=== PATIENT | male | born 1985 | race Caucasian/White ===

== ENCOUNTER 2018-06-19 07:48 | Emergency (ER) | payer MEDICAID, OTHER ==
[~2018-06-19] VITALS: Ht 177.8 cm; Wt 99.8 kg
--- OUTSIDE RECORDS SUMMARY | 2018-06-19 07:53 | XMS REPORT ---
Author Author AMPARO FERREIRA Organization Unknown Address [address] [place] [address] Care Team Providers [employer] Architect Name Role Phone HANNA AMPARO Unavailable BUFFY TREJO Unavailable JANKI STARR Unavailable BLANCHE GREGORY Unavailable Problems Problem SNOMED Onset Date Resolved Date Status N/A N/A N/A N/A N/A Allergies, Adverse Reactions NA Care Plan Goal Instructions To decrease incidence of depression, suicidal feelings/thoughts, mood instability and emotional lability so that I can feel normal To finish a couple of songs about my depression and my life problems to help me release a lot of tensions. Use recovery tools and therapeutic interventions, including community resources to assist client with his [place] goal. To decrease incidence of depression, suicidal feelings/thoughts, mood instability and emotional lability so that I can feel normal To finish a couple of songs about my depression and my life problems to help me release a lot of tensions. Use recovery tools and therapeutic interventions, including community resources to assist client with his [place] goal. I want to get job to have more money so that I can save to buy a car Look for employment opportunities using [employer] library, newspapers, employment papers and utilizing the [facility] [employer]. Refer client to a vocational counselor for assistance. Meet with assigned vocational counselor for employment search and for job support. Use recovery tools and therapeutic interventions, including community resources to assist client with getting and keeping a job. The following services (vocational services, Targeted Case Management, Strength Based Case Management and CPST employmnt support) will be used 1 to 2 times weekly to assist client with his employment goal. Improve and maintain functioning through medical psychiatric services. Initial Psychiatric Evaluation, Ongoing medication monitoring and management, Case Conference with multidisciplinary members of the [facility] team as indicated, and/or Collaboration and coordination with outside medical providers as indicated by providing the following services: 30915 interactive complexity 27710 psychiatric diagnostic eval w/ meds 93230 30 min psychotherapy add-on 96919 45 [place] [address] 60 min psychotherapy add-on 94857 med injection 62700 New Patient E&M (level 1) 66344 New Patient E&M (level 2) 06446 New Patient E&M (level 3) 47520 New patient E&M (level 4) 38789 New Patient E&M (level 5) 94140 Established Patient E&M (level 1) 17718 Established Patient E&M (level 2) 44110 Established Patient E&M (level 3) 62402 Established Patient E& amp;M (level 4) 50182 Established Patient E&M (level 5) 9935x prolonged service code 21483 case conference w/o clt & fam w/ [place] [address] case conference w/o clt w / MD To decrease incidence of depression, suicidal feelings/thoughts, mood instability and emotional lability so that I can feel normal To finish a couple of songs about my depression and my life problems to help me release a lot of tensions. Use recovery tools and therapeutic interventions, including community resources to assist client with his [place] goal. I want to get job to have more money so that I can save to buy a car Look for employment opportunities using [employer] library, newspapers, employment papers and utilizing the [facility] [employer] [place]. Refer client to a vocational counselor for assistance. Meet with assigned vocational counselor for employment search and for job support. Use recovery tools and therapeutic interventions, including community resources to assist client with getting and keeping a job. The following services (vocational services, Targeted Case Management, Strength Based Case Management and CPST employmnt support) will be used 1 to 2 times weekly to assist client with his employment goal. Improve and maintain functioning through medical psychiatric services. Initial Psychiatric Evaluation, Ongoing medication monitoring and management, Case Conference with multidisciplinary members of the [facility] team as indicated, and/or Collaboration and coordination with outside medical providers as indicated by providing the following services: 62882 interactive complexity 13633 psychiatric diagnostic eval w/ meds 63327 30 min psychotherapy add-on 47439 45 [place] [address] 60 min psychotherapy add-on 17939 med injection 42956 New Patient E&M (level 1) 91904 New Patient E&M (level 2) 60170 New Patient E&M (level 3) 87744 New patient E&M (level 4) 12176 New Patient E&M (level 5) 68023 Established Patient E&M (level 1) 24710 Established Patient E&M (level 2) 48550 Established Patient E&M (level 3) 90356 Established Patient E& amp;M (level 4) 08706 Established Patient E&M (level 5) 9935x prolonged service code 29076 case conference w/o clt & fam w/ [place] [address] case conference w/o clt w / MD To decrease incidence of depression, suicidal feelings/thoughts, mood instability and emotional lability so that I can feel normal CM will use recovery tools such as (Why I take Medications, Overcoming Fears About Medications and Exploring My Beliefs About Medication) and Therapeutic interventions (CBT, Open ended, solution focused and CT) to assist client with his [place] goal/recovery. I want to get job to have more money so that I can save to buy a car Look for employment opportunities using [employer] library, newspapers, employment papers and utilizing the [facility] [employer]. Refer client to a vocational counselor for assistance. Meet with assigned vocational counselor for employment search and for job support. Use recovery tools and therapeutic interventions, including community resources to assist client with getting and keeping a job. The following services (vocational services, Targeted Case Management, Strength Based Case Management and CPST employmnt support) will be used 1 to 2 times weekly to assist client with his employment goal. Improve and maintain functioning through medical psychiatric services. Initial Psychiatric Evaluation, Ongoing medication monitoring and management, Case Conference with multidisciplinary members of the [facility] team as indicated, and/or Collaboration and coordination with outside medical providers as indicated by providing the following services: 35053 interactive complexity 38567 psychiatric diagnostic eval w/ meds 20070 30 min psychotherapy add-on 16940 45 [place] [address] 60 min psychotherapy add-on 29091 med injection 77893 New Patient E&M (level 1) 82232 New Patient E&M (level 2) 62088 New Patient E&M (level 3) 22974 New patient E&M (level 4) 08045 New Patient E&M (level 5) 93948 Established Patient E&M (level 1) 17862 Established Patient E&M (level 2) 85490 Established Patient E&M (level 3) 41090 Established Patient E& amp;M (level 4) 60001 Established Patient E&M (level 5) 9935x prolonged service code 95098 case conference w/o clt & [place]/ [place] [address] case conference w/o clt w / MD To decrease incidence of depression, suicidal feelings/thoughts, mood instability and emotional lability so that I can feel normal CM will use recovery tools such as (Why I take Medications, Overcoming Fears About Medications and Exploring My Beliefs About Medication) and Therapeutic interventions (CBT, Open ended, solution focused and CT) to assist client with his [place] goal/recovery. I want to get job to have more money so that I can save to buy a car Look for employment opportunities using [employer] library, newspapers, employment papers and utilizing the [facility] [employer]. Refer client to a vocational counselor for assistance. Meet with assigned vocational counselor for employment search and for job support. Use recovery tools and therapeutic interventions, including community resources to assist client with getting and keeping a job. The following services (vocational services, Targeted Case Management, Strength Based Case Management and CPST employmnt support) will be used 1 to 2 times weekly to assist client with his employment goal. Improve and maintain functioning through medical psychiatric services. Initial Psychiatric Evaluation, Ongoing medication monitoring and management, Case Conference with multidisciplinary members of the [facility] team as indicated, and/or Collaboration and coordination with outside medical providers as indicated by providing the following services: 48541 interactive complexity 58471 psychiatric diagnostic eval w/ meds 39651 30 min psychotherapy add-on 11492 45 [place] [address] 60 min psychotherapy add-on 32252 med injection 74708 New Patient E&M (level 1) 34031 New Patient E&M (level 2) 15896 New Patient E&M (level 3) 14880 New patient E&M (level 4) 16178 New Patient E&M (level 5) 03936 Established Patient E&M (level 1) 46551 Established Patient E&M (level 2) 70326 Established Patient E&M (level 3) 17074 Established Patient E& amp;M (level 4) 75752 Established Patient E&M (level 5) 9935x prolonged service code 98389 case conference w/o clt & bibiana w/ [place] [address] case conference w/o clt w / MD I want to eventually get and have kids CM will use recovery tools such as (Why I take Medications, Overcoming Fears About Medications and Exploring My Beliefs About Medication) and Therapeutic interventions (CBT, Open ended, solution focused and CT) to assist client with his [place] goal/recovery. To decrease incidence of depression, suicidal feelings/thoughts, mood instability and emotional lability so that I can feel normal CM will use recovery tools such as (Why I take Medications, Overcoming Fears About Medications and Exploring My Beliefs About Medication) and Therapeutic interventions (CBT, Open ended, solution focused and CT) to assist client with his [place] goal/recovery. I want to eventually get and have kids CM will use recovery tools such as (Why I take Medications, Overcoming Fears About Medications and Exploring My Beliefs About Medication) and Therapeutic interventions (CBT, Open ended, solution focused and CT) to assist client with his [place] goal/recovery. I want to get job to have more money so that I can save to buy a car Look for employment opportunities using public library, newspapers, employment papers and utilizing the [facility] [employer]. Refer client to a vocational counselor for assistance. Meet with assigned vocational counselor for employment search and for job support. Use recovery tools and therapeutic interventions, including community resources to assist client with getting and keeping a job. The following services (vocational services, Targeted Case Management, Strength Based Case Management and CPST employmnt support) will be used 1 to 2 times weekly to assist client with his employment goal. Improve and maintain functioning through medical psychiatric services. Initial Psychiatric Evaluation, Ongoing medication monitoring and management, Case Conference with multidisciplinary members of the [facility] team as indicated, and/or Collaboration and coordination with outside medical providers as indicated by providing the following services: 58314 interactive complexity 07895 psychiatric diagnostic eval w/ meds 67311 30 min psychotherapy add-on 43576 45 [place] [address] 60 min psychotherapy add-on 19376 med injection 02152 New Patient E&M (level 1) 16120 New Patient E&M (level 2) 19952 New Patient E&M (level 3) 22491 New patient E&M (level 4) 56017 New Patient E&M (level 5) 42845 Established Patient E&M (level 1) 86033 Established Patient E&M (level 2) 00758 Established Patient E&M (level 3) 28491 Established Patient E& amp;M (level 4) 47975 Established Patient E&M (level 5) 9935x prolonged service code 76661 case conference w/o clt & fam w/ 65915 case conference w/o clt w / I want to eventually get and have kids CM will use recovery tools and therapeutic interventions to support client recovery I want to get job to have more money so that I can save to buy a car Look for employment opportunities using [employer], newspapers, employment papers and utilizing the [facility] [employer]. Refer client to a vocational counselor for assistance. Meet with assigned vocational counselor for employment search and for job support. Use recovery tools and therapeutic interventions, including community resources to assist client with getting and keeping a job. The following services (vocational services, Targeted Case Management, Strength Based Case Management and CPST employmnt support) will be used 1 to 2 times weekly to assist client with his employment goal. Improve and maintain functioning through medical psychiatric services. Initial Psychiatric Evaluation, Ongoing medication monitoring and management, Case Conference with multidisciplinary members of the [facility] team as indicated, and/or Collaboration and coordination with outside medical providers as indicated by providing the following services: 15023 interactive complexity 01978 psychiatric diagnostic eval w/ meds 07045 30 min psychotherapy add-on 80016 45 [place] [address] 60 min psychotherapy add-on 11761 med injection 16551 New Patient E&M (level 1) 61609 New Patient E&M (level 2) 18202 New Patient E&M (level 3) 63844 New patient E&M (level 4) 20614 New Patient E&M (level 5) 03108 Established Patient E&M (level 1) 73007 Established Patient E&M (level 2) 30854 Established Patient E&M (level 3) 51347 Established Patient E& amp;M (level 4) 35722 Established Patient E&M (level 5) 9935x prolonged service code 96489 case conference w/o clt & fam w/ 89433 case conference w/o clt w / I want to eventually get and have kids CM will use recovery tools and therapeutic interventions to support client recovery I want to get job to have more money so that I can save to buy a car Vocational Counselor will assist client with vocational interest exploration , resume development, employment search and support. Improve and maintain functioning through medical psychiatric services. Initial Psychiatric Evaluation, Ongoing medication monitoring and management, Case Conference with multidisciplinary members of the [facility] team as indicated, and/or Collaboration and coordination with outside medical providers as indicated by providing the following services: 94842 interactive complexity 81853 psychiatric diagnostic eval w/ meds 40800 30 min psychotherapy add-on 70037 45 [place] [address] 60 min psychotherapy add-on 63513 med injection 49584 New Patient E&M (level 1) 01264 New Patient E&M (level 2) 41204 New Patient E&M (level 3) 73223 New patient E&M (level 4) 08358 New Patient E&M (level 5) 94286 Established Patient E&M (level 1) 38791 Established Patient E&M (level 2) 54939 Established Patient E&M (level 3) 02490 Established Patient E& amp;M (level 4) 45279 Established Patient E&M (level 5) 9935x prolonged service code 88957 case conference w/o jose carlos & bibiana w/ 52708 case conference w/o jose carlos w / I want to be happy and have a normal life CM will use recovery tools and therapeutic interventions to support client recovery I want to be happy and have a normal life CM will use recovery tools and therapeutic interventions to support client recovery I want to get job to have more money so that I can save to buy a car Vocational Counselor will assist client with vocational interest exploration , resume development, employment search and support. Improve and maintain functioning through medical psychiatric services. Initial Psychiatric Evaluation, Ongoing medication monitoring and management, Case Conference with multidisciplinary members of the [facility] team as indicated, and/or Collaboration and coordination with outside medical providers as indicated by providing the following services: 96600 interactive complexity 26854 psychiatric diagnostic eval w/ meds 99387 30 min psychotherapy add-on 95019 45 [place] [address] 60 min psychotherapy add-on 85242 med injection 78772 New Patient E&M (level 1) 26728 New Patient E&M (level 2) 53746 New Patient E&M (level 3) 34551 New patient E&M (level 4) 81395 New Patient E&M (level 5) 00005 Established Patient E&M (level 1) 82818 Established Patient E&M (level 2) 97870 Established Patient E&M (level 3) 92694 Established Patient E& amp;M (level 4) 54432 Established Patient E&M (level 5) 9935x prolonged service code 62103 case conference w/o clt & fam w/ 97336 case conference w/o jose carlos w / Improve and maintain functioning through medical psychiatric services. Initial Psychiatric Evaluation, Ongoing medication monitoring and management, Case Conference with multidisciplinary members of the [facility] team as indicated, and/or Collaboration and coordination with outside medical providers as indicated by providing the following services: 57304 interactive complexity 82665 psychiatric diagnostic eval w/ meds 53211 30 min psychotherapy add-on 82805 45 [place] [address] 60 min psychotherapy add-on 25794 med injection 73480 New Patient E&M (level 1) 30816 New Patient E&M (level 2) 30013 New Patient E&M (level 3) 54215 New patient E&M (level 4) 53683 New Patient E&M (level 5) 60894 Established Patient E&M (level 1) 75104 Established Patient E&M (level 2) 99095 Established Patient E&M (level 3) 44526 Established Patient E& amp;M (level 4) 90617 Established Patient E&M (level 5) 9935x prolonged service code 04562 case conference w/o clt & bibiana w/ 31075 case conference w/o jose carlos w / [id number] Peer Support Individual H2017 Psychosocial Rehab Indiv I want to be happy and have a normal life CM will use recovery tools and therapeutic interventions to support client recovery I want to get job to have more money so that I can save to buy a car Vocational Counselor will assist client with vocational interest exploration , resume development, employment search and support. Improve and maintain functioning through medical psychiatric services. Initial Psychiatric Evaluation, Ongoing medication monitoring and management, Case Conference with multidisciplinary members of the [facility] team as indicated, and/or Collaboration and coordination with outside medical providers as indicated by providing the following services: 54573 interactive complexity 51986 psychiatric diagnostic eval w/ meds 61191 30 min psychotherapy add-on 69377 45 [place] [address] 60 min psychotherapy add-on 16164 med injection 63225 New Patient E&M (level 1) 28346 New Patient E&M (level 2) 44686 New Patient E&M (level 3) 34809 New patient E&M (level 4) 96257 New Patient E&M (level 5) 72840 Established Patient E&M (level 1) 48274 Established Patient E&M (level 2) 94703 Established Patient E&M (level 3) 84418 Established Patient E& amp;M (level 4) 10061 Established Patient E&M (level 5) 9935x prolonged service code 69174 case conference w/o clt & [place]/ [place] [address] case conference w/o clt w / MD [id number] Peer Support Individual H2017 Psychosocial Rehab Indiv Medications Medication Code Dose,Form,Route,Freq Start Date End Date Insulin-HumaLOG - 20MG, TAB, PO (1)ea QD - 3MG, TER, PO (1)ea PRN-QD - 500MG, TER, PO (3)ea QHS - 156MG, SER, IM (156)mg Q4W Invega Sustenna - 156MG INTRAMUSCULAR Suspension, Extended Release [id number] Inject one hundred fifty six (156) mg Suspension, Extended Release Every 4 Weeks Lexapro - 20MG ORAL Tablet [id number] Take one (1) tablet Daily. Invega - 3MG ORAL Tablet, Extended Release [id number] Take one (1) tablet, extended release Once a Day, As Necessary. Depakote ER - 500MG ORAL Tablet, Extended Release [id number] Take three (3) tablets, extended releases At Bedtime Invega Sustenna - 156MG INTRAMUSCULAR Suspension, Extended Release [id number] Inject one hundred fifty six (156) mg Suspension, Extended Release Every 4 Weeks Invega Sustenna - 156MG INTRAMUSCULAR Suspension, Extended Release [id number] Inject one hundred fifty six (156) mg Suspension, Extended Release Every 4 Weeks Invega - 3MG ORAL Tablet, Extended Release [id number] Take one (1) tablet, extended release Once a Day, As Necessary. Invega Sustenna - 234MG INTRAMUSCULAR Suspension, Extended Release [id number] Inject two hundred thirty four (234) mg Suspension, Extended Release Every 4 Weeks lamoTRIgine - 25MG ORAL Tablet 637762 Take one (1) Tablet Twice a Day Lab Results Date Name LOINC Ref Range Value Normalcy Glucose SerPl-mCnc 2345-7 65-99 132 mg/dL Above high normal BUN SerPl-mCnc 3094-0 7-25 16 mg/dL Normal (applies to non-numeric results) Creat SerPl-mCnc 2160-0 0.60-1.35 0.87 mg/dL Normal (applies to non-numeric results) GFR/BSA.pred SerPl MDRD-vRate 85937-5 > OR=60 119 mL/min/1.73m2 Normal (applies to non-numeric results) GFR/BSA pred.black SerPl MDRD-vRate 55990-6 > OR=60 138 mL/min/1.73m2 Normal (applies to non- numeric results) BUN/Creat SerPl 3097-3 6-22 (calc) Sodium SerPl-sCnc 2951-2 135-146 140 mmol/L Normal (applies to non-numeric results) Potassium SerPl-sCnc 2823-3 3.5-5.3 4.0 mmol/L Normal (applies to non-numeric results) Chloride SerPl-sCnc 2075-0 98-110 104 mmol/L Normal (applies to non-numeric results) CO2 SerPl-sCnc 8-9 19-30 25 mmol/L Normal (applies to non-numeric results) Calcium SerPl-mCnc 30200-2 8.6-10.3 10.4 mg/dL Above high normal WBC # Bld Auto 6690-2 3.8-10.8 6.7 Thousand/uL Normal (applies to non-numeric results) RBC # Bld Auto 789-8 4.20-5.80 5.17 Million/uL Normal (applies to non-numeric results) Hgb Bld-mCnc 718-7 13.2-17.1 15.9 g/dL Normal (applies to non-numeric results) Hct VFr Bld Auto 4544-3 38.5-50.0 47.3 % Normal (applies to non-numeric results) MCV RBC Auto 787-2 80.0-100.0 91.5 fL Normal (applies to non-numeric results) MCH RBC Qn Auto 785-6 27.0-33.0 30.7 pg Normal (applies to non-numeric results) MCHC RBC Auto-mCnc 786-4 32.0-36.0 33.5 g/dL Normal (applies to non-numeric results) RDW RBC Auto-Rto 788-0 11.0-15.0 12.9 % Normal (applies to non-numeric results) Platelet # Bld Auto 777-3 140-400 219 Thousand/uL Normal (applies to non-numeric results) PMV Bld Emanuel-Matthew 776-5 7.5-11.5 fL Normal (applies to non-numeric results) Neutrophils # Bld Auto 751-8 1500- 7800 4114 cells/uL Normal (applies to non-numeric results) Neuts Band # Bld 67514-1 0-750 cells/uL Normal (applies to non-numeric results) Metamyelocytes # Bld 86767-5 0 cells/uL Normal (applies to non-numeric results) Myelocytes # Bld 67621-7 0 cells/uL Normal (applies to non-numeric results) Promyelocytes # Bld 15911-6 0 cells/uL Normal (applies to non-numeric results) Lymphocytes # Bld Auto 731-0 850-3900 1997 cells/uL Normal (applies to non-numeric results) Monocytes # Bld Auto 742-7 200-950 503 cells/uL Normal (applies to non-numeric results) Eosinophil # Bld Auto 711-2 15-500 60 cells/uL Normal (applies to non-numeric results) Basophils # Bld Auto 704-7 0-200 27 cells/uL Normal (applies to non-numeric results) Blasts # Bld 51358-5 0 cells/uL Normal (applies to non-numeric results) nRBC # Bld 20212-6 0 cells/ uL Normal (applies to non-numeric results) Neutrophils NFr Bld Auto 770-8 61.4 % Normal (applies to non-numeric results) Neuts Band NFr Bld Manual 764-1 % Normal (applies to non-numeric results) Metamyelocytes NFr Bld Manual 740-1 % Normal (applies to non-numeric results) Myelocytes NFr Bld Manual 749-2 % Normal (applies to non-numeric results) Promyelocytes NFr Bld Manual 783-1 % Normal (applies to non-numeric results) Lymphocytes NFr Bld Auto 736-9 29.8 % Normal (applies to non-numeric results) Atypical Lymphs [place] Bld 05331-4 0-10 % Normal (applies to non-numeric results) Monocytes NFr Bld Auto 5905-5 7.5 % Normal (applies to non-numeric results) Eosinophil NFr Bld Auto 713-8 0.9 % Normal (applies to non-numeric results) Basophils NFr Bld Auto 706-2 0.4 % Normal (applies to non-numeric results) Blasts NFr Bld Manual 709-6 % Normal (applies to non-numeric results) nRBC/100 WBC Bld-Rto 77700-8 0 /100 WBC Normal (applies to non-numeric results) Service Cmnt XXX-Imp 8251-1 Normal (applies to non-numeric results) Valproate [facility] 4086-5 50.0- 100.0 <12.5 mg/L Below low normal Encounters Date Time Service Code Provider 08:00:00 am [place] [facility] 01:41:00 pm AMPARO THORNEXTON Family History Functional Status NA Immunizations NA Vital Signs Date Time BP Pulse Temp Height Weight BMI 10:26:00 am over 75 in 212.6 lbs 26.6 kg/m^2 01:35:00 pm 120 over 86 215 lbs 11:31:00 am over 75 in 226 lbs 28.2 kg/m^2 02:15:00 pm 110 over 80 226 lbs 02:40:00 pm 130 over 100 232 lbs 02:10:00 pm over 75 in 229 lbs 28.6 kg/m^2 01:50:00 pm 130 over 90 238 lbs 03:10:00 pm 124 over 90 239 lbs 02:23:00 pm 128 over 108 242.2 lbs 11:30:00 am over 75 in 242 lbs 30.2 kg/m^2 01:40:00 pm 126 over 86 242 lbs 10:02:00 am 117 over 79 84 bpm 209 lbs 10:56:00 am 133 over 84 80 bpm 210.0 lbs 02:02:00 pm over 75 in 207 lbs 25.9 kg/m^2 11:18:00 am over 75 in 204.6 lbs 25.6 kg/m^2 11:05:00 am over 75 in 198.8 lbs 24.8 kg/m^2 11:52:00 am over 75 in 202.4 lbs 25.3 kg/m^2 02:43:00 pm over 75 in 207.2 lbs 25.9 kg/m^2 11:40:00 am 133 over 81 64 bpm 75 in 213.2 lbs 26.6 kg/m^2 Social History NA Hospital Discharge Instructions NA Hospital Discharge medications Date Medication Dose, Form, Route, Freq Code Insulin-HumaLOG Instructions * Not Applicable Procedures NA Purpose Electronic Copy
--- OUTSIDE RECORDS SUMMARY | 2018-06-19 07:53 | XMS REPORT | Continuity of Care Document ---
Author Author Auto Generated Organization Unknown Address [address] [address] Allergies and Adverse Reactions Allergen/Reactant Reaction Reaction Severity Status morphine N/A N/A N/A Vicodin N/A N/A N/A Encounters Encounter Performer Location Date ADULT MH PROGRAM [facility] 05/25/2008 [facility] AMPARO FERREIRA [facility] 03/04/2014 Medications Medication Instructions Start Date Status Lexapro - 20MG, TAB, PO (1)ea QD Needs to scheudle an appt 08/15/2014 Active Invega - 3MG, TER, PO (1)ea PRN-QD Needs to schedule an appt 08/15/2014 Active Depakote ER - 500MG, TER, PO (3)ea QHS Needs to schedule an appt 08/15/2014 Active Invega Sustenna - 156MG, SER, IM (156)mg Q4W Needs to scheduel an appt 08/15/2014 Active Invega Sustenna - 156MG, SER, IM (156)mg Q4W 09/22/2014 Active Lexapro - 20MG, TAB, PO (1)ea QD 09/22/2014 Active Invega - 3MG, TER, PO (1)ea PRN-QD 09/22/2014 Active Depakote ER - 500MG, TER, PO (3)ea QHS 09/22/2014 Active Diagnostic Results Service ID Test Result Value Abnormal Date Time Reference Range 916 VALPROIC ACID Below low normal 01/2014 06:45 AM 50.0-100.0 6399 WHITE BLOOD CELL COUNT 6.7Thousand/uL Normal (applies to non-numeric results) 05/27/2014 06:45 AM 3.8-10.8 6399 RED BLOOD CELL COUNT 5.17Million/uL Normal ( applies to non-numeric results) 05/27/2014 06:45 AM 4.20-5.80 6399 HEMOGLOBIN 15.9g/dL Normal (applies to non- numeric results) 05/27/2014 06:45 AM 13.2-17.1 6399 HEMATOCRIT 47.3% Normal (applies to non- numeric results) 05/27/2014 06:45 AM 38.5-50.0 6399 MCV 91.5fL Normal (applies to non-numeric results) 05/27/2014 06:45 AM 80.0-100.0 6399 MCH 30.7pg Normal (applies to non-numeric results) 05/27/2014 06:45 AM 27.0-33.0 6399 MCHC 33.5g/dL Normal (applies to non- numeric results) 05/27/2014 06:45 AM 32.0-36.0 6399 RDW 12.9% Normal (applies to non-numeric results) 05/27/2014 06:45 AM 11.0-15.0 6399 PLATELET COUNT 219Thousand/uL Normal ( applies to non-numeric results) 05/27/2014 06:45 AM 141-954 7048 MPV DNRfL Normal (applies to non-numeric results) 05/27/2014 06:45 AM 7.5-11.5 6399 ABSOLUTE NEUTROPHILS 4114cells/uL Normal ( applies to non-numeric results) 05/27/2014 06:45 AM 7315-9314 6399 ABSOLUTE BAND NEUTROPHILS DNRcells/uL Normal (applies to non-numeric results) 05/27/2014 06:45 AM 0-750 6399 ABSOLUTE METAMYELOCYTES DNRcells/uL Normal ( applies to non-numeric results) 05/27/2014 06:45 AM 0 6399 ABSOLUTE MYELOCYTES DNRcells/uL Normal ( applies to non-numeric results) 05/27/2014 06:45 AM 0 6399 ABSOLUTE PROMYELOCYTES DNRcells/uL Normal ( applies to non-numeric results) 05/27/2014 06:45 AM 0 6399 ABSOLUTE LYMPHOCYTES 1997cells/uL Normal ( applies to non-numeric results) 05/27/2014 06:45 AM [phone] ABSOLUTE MONOCYTES 503cells/uL Normal ( applies to non-numeric results) 05/27/2014 06:45 AM 114-659 9793 ABSOLUTE EOSINOPHILS 60cells/uL Normal ( applies to non-numeric results) 05/27/2014 06:45 AM 15-500 6399 ABSOLUTE BASOPHILS 27cells/uL Normal ( applies to non-numeric results) 05/27/2014 06:45 AM 0-200 6399 ABSOLUTE BLASTS DNRcells/uL Normal (applies to non-numeric results) 05/27/2014 06:45 AM 0 6399 ABSOLUTE NUCLEATED RBC DNRcells/uL Normal ( applies to non-numeric results) 05/27/2014 06:45 AM 0 6399 NEUTROPHILS 61.4% Normal (applies to non- numeric results) 05/27/2014 06:45 AM 6399 BAND NEUTROPHILS DNR% Normal (applies to non -numeric results) 05/27/2014 06:45 AM 6399 METAMYELOCYTES DNR% Normal (applies to non- numeric results) 05/27/2014 06:45 AM 6399 MYELOCYTES DNR% Normal (applies to non- numeric results) 05/27/2014 06:45 AM 6399 PROMYELOCYTES DNR% Normal (applies to non- numeric results) 05/27/2014 06:45 AM 6399 LYMPHOCYTES 29.8% Normal (applies to non- numeric results) 05/27/2014 06:45 AM 6399 REACTIVE LYMPHOCYTES DNR% Normal (applies to non-numeric results) 05/27/2014 06:45 AM 0-10 6399 MONOCYTES 7.5% Normal (applies to non- numeric results) 05/27/2014 06:45 AM 6399 EOSINOPHILS 0.9% Normal (applies to non- numeric results) 05/27/2014 06:45 AM 6399 BASOPHILS 0.4% Normal (applies to non- numeric results) 05/27/2014 06:45 AM 6399 BLASTS DNR% Normal (applies to non-numeric results) 05/27/2014 06:45 AM 6399 NUCLEATED RBC DNR/100 WBC Normal (applies to non-numeric results) 05/27/2014 06:45 AM 0 6399 COMMENT(S) DNR Normal (applies to non- numeric results) 05/27/2014 06:45 AM 81356 GLUCOSE 132mg/dL Above high normal 05/27/2014 06:45 AM 65-99 74679 UREA NITROGEN (BUN) 16mg/dL Normal ( applies to non-numeric results) 05/27/2014 06:45 AM 7-25 16548 CREATININE 0.87mg/dL Normal (applies to non -numeric results) 05/27/2014 06:45 AM 0.60-1.35 84265 eGFR NON-AFR. DANISH 119mL/min/1.73m2 Normal (applies to non-numeric results) 05/27/2014 06:45 AM 46781 eGFR 138mL/min/1.73m2 Normal (applies to non-numeric results) 05/27/2014 06:45 AM 16878 BUN/CREATININE RATIO NOT APPLICABLE(calc) Unknown 05/27/2014 06:45 AM 6-22 09029 SODIUM 140mmol/L Normal (applies to non- numeric results) 05/27/2014 06:45 AM 135-146 70562 POTASSIUM 4.0mmol/L Normal (applies to non- numeric results) 05/27/2014 06:45 AM 3.5-5.3 56172 CHLORIDE 104mmol/L Normal (applies to non- numeric results) 05/27/2014 06:45 AM 98-110 87208 CARBON DIOXIDE 25mmol/L Normal (applies to non-numeric results) 05/27/2014 06:45 AM 19-30 77484 CALCIUM 10.4mg/dL Above high normal 05/27/2014 06:45 AM 8.6-10.3 Vital Signs Date/Time BP Pulse BMI Temp Height Weight Pain 09/22/2014 11:31AM 28.2 6' 3" 226 lbs 09/19/2014 02:15PM 110/80 mmHg 226 lbs 05/26/2014 02:40PM 130/100 mmHg 232 lbs 05/19/2014 02:10PM 28.6 6' 3" 229 lbs 05/03/2014 01:50PM 130/90 mmHg 238 lbs 04/07/2014 03:10PM 124/90 mmHg 239 lbs 02/28/2014 02:23PM 128/108 mmHg 242.2 lbs 01/20/2014 11:30AM 30.2 6' 3" 242 lbs 01/13/2014 01:40PM 126/86 mmHg 242 lbs
--- OUTSIDE RECORDS SUMMARY | 2018-06-19 07:53 | XMS REPORT | Continuity of Care Document ---
Author Author Auto Generated Organization Unknown Address [address] [address] Allergies and Adverse Reactions Allergen/Reactant Reaction Reaction Severity Status morphine N/A N/A N/A Vicodin N/A N/A N/A Encounters Encounter Performer Location Date ADULT PROGRAM [facility] 05/25/2008 [facility] AMPARO FERREIRA [facility] 03/04/2014 Medications Medication Instructions Start Date Status Depakote ER - 500 mg, ERT, PO (3)ea QHS 05/19/2014 Active Lexapro - 20 mg, TAB, PO (1)ea QD 05/19/2014 Active Invega - 3 mg, ERT, PO (1)ea PRN-QD 05/19/2014 Active Invega Sustenna - 156 mg/mL, ERSUS, IM (156)mg Q4W 2013 Active Diagnostic Results Service ID Test Result [...] applies to non-numeric results) 05/27/2014 06:45 AM [phone] MPV DNRfL Normal (applies to non-numeric results) 05/27/2014 06:45 AM 7.5-11.5 6399 ABSOLUTE NEUTROPHILS 4114cells/uL Normal ( applies to non-numeric results) 05/27/2014 06:45 AM 5506-7395 6399 ABSOLUTE BAND NEUTROPHILS DNRcells/uL Normal (applies [...] applies to non-numeric results) 05/27/2014 06:45 AM 235-783 5207 ABSOLUTE EOSINOPHILS 60cells/uL Normal ( applies to [...] to non- numeric results) 05/27/2014 06:45 AM 20284 GLUCOSE 132mg/dL Above high normal 05/27/2014 06:45 AM 65-99 03090 UREA NITROGEN (BUN) 16mg/dL Normal ( applies to non-numeric results) 05/27/2014 06:45 AM 7-25 38144 CREATININE 0.87mg/dL Normal (applies to non -numeric results) 05/27/2014 06:45 AM 0.60-1.35 66037 eGFR NON-AFR. BERMUDIAN 119mL/min/1.73m2 Normal (applies to non-numeric results) 05/27/2014 06:45 AM 76184 eGFR 138mL/min/1.73m2 Normal (applies to non-numeric results) 05/27/2014 06:45 AM 69683 BUN/CREATININE RATIO NOT APPLICABLE(calc) Unknown 05/27/2014 06:45 AM 6-22 81897 SODIUM 140mmol/L Normal (applies to non- numeric results) 05/27/2014 06:45 AM 135-146 17868 POTASSIUM 4.0mmol/L Normal (applies to non- numeric results) 05/27/2014 06:45 AM 3.5-5.3 15737 CHLORIDE 104mmol/L Normal (applies to non- numeric results) 05/27/2014 06:45 AM 98-110 21479 CARBON DIOXIDE 25mmol/L Normal (applies to non-numeric results) 05/27/2014 06:45 AM 19-30 01982 CALCIUM 10.4mg/dL Above high normal 05/27/2014 06:45 AM 8.6-10.3 Vital Signs Date/Time BP Pulse BMI Temp Height Weight Pain 05/26/2014 02:40PM 130/100 mmHg 232 lbs 05/19/2014 02:10PM 28.6 6' 3" 229 lbs 05/03/2014 01:50PM 130/90 mmHg 238 lbs 04/07/2014 03:10PM 124/90 mmHg 239 lbs 02/28/2014 02:23PM 128/108 mmHg 242.2 lbs 01/20/2014 11:30AM 30.2 6' 3" 242 lbs 01/13/2014 01:40PM 126/86 mmHg 242 lbs
--- OUTSIDE RECORDS SUMMARY | 2018-06-19 07:53 | XMS REPORT ---
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 Name Role Phone AMPARO FERREIRA Unavailable NEIL BUFFY Unavailable JANKI STARR Unavailable BLANCHE GREGORY Unavailable Problems Problem SNOMED Onset Date Resolved Date Status Review of medication 305639960 Active Mental health problem [id number] Inactive Allergies, Adverse Reactions Substance Code Type Code Type Reaction Severity Status LAMOTRIGINE RxNorm 35125 Active Care Plan Goal Instructions I want to be happy and have a normal life CM will coordinate with treatment providers, community agencies and family members to support I want to be happy and have a normal life CM will use community resources to support client recovery I want to be happy and have a normal life CM will coordinate with treatment providers, community agencies and family members to support client recovery I want to be happy and have a normal life The following services will be provided 1 to 3 times monthly to achieve this goal I want to get job to have more money so that I can save to buy a car Vocational Counselor will assist client with vocational interest exploration, resume development, employment search and support. Improve and maintain functioning through medical psychiatric services. Initial Psychiatric Evaluation, Ongoing medication monitoring and management , Case Conference with multidisciplinary members of the MHC team as indicated, and/or Collaboration and coordination with outside medical providers as indicated by providing the following services: 78771 interactive complexity 19683 psychiatric diagnostic eval w/ meds 88206 30 min psychotherapy add-on 55176 45 [place] [address] 60 min psychotherapy add-on 20378 med injection 60652 New Patient E&M (level 1) 90892 New Patient E&M (level 2) 90716 New Patient E&M (level 3) 10296 New patient E&M (level 4) 66011 New Patient E& M (level 5) 54362 Established Patient E&M (level 1) 62212 Established Patient E &M (level 2) 65231 Established Patient E&M (level 3) 23895 Established Patient E&M (level 4) 53104 Established Patient E&M (level 5) 9935x prolonged service code 16822 case conference w/o clt & fam w/ 10517 case conference w/o clt w / H0038 Peer Support Individual H2017 Psychosocial Rehab Indiv Date Name Code Type Code [place], Serum ([place] Level) (Li, Blood) (LiCO3) ( Lithobid) 67651 Complete Blood Count (CBC) With Differential 04823 Metabolic Panel (14), Comprehensive (MPC), CMP 04485 Thyroid-stimulating Hormone (TSH) (Thyrotropin) (Third Generation TSH) 84597 Urinalysis, Complete With Microscopic Examination (UA) ( UA Complete) 33707 [place], Serum ([place] Level) (Li, Blood) (LiCO3) ( Lithobid) 84586 [place], Serum ([place] Level) (Li, Blood) (LiCO3) ( Lithobid) 67470 Date Time Service Provider Location 01:00:00 pm STREN[facility]ED [facility]ORY [facility] Medications Medication Code Dose,Form,Route,Freq Start Date End Date Insulin-HumaLOG Invega Sustenna - 156MG INTRAMUSCULAR Suspension, Extended Release 297707 Inject one hundred fifty six (156) mg Suspension, Extended Release Every 4 Weeks Lexapro - 20MG ORAL Tablet 097446 Take one (1) tablet Daily. Invega - 3MG ORAL Tablet, Extended Release 056113 Take one (1) tablet, extended release Once a Day, As Necessary. Depakote ER - 500MG ORAL Tablet, Extended Release 3840728 Take three (3) tablets, extended releases At Bedtime Invega Sustenna - 156MG INTRAMUSCULAR Suspension, Extended Release 241632 Inject one hundred fifty six (156) mg Suspension, Extended Release Every 4 Weeks Invega Sustenna - 156MG INTRAMUSCULAR Suspension, Extended Release 591024 Inject one hundred fifty six (156) mg Suspension, Extended Release Every 4 Weeks Invega - 3MG ORAL Tablet, Extended Release 228868 Take one (1) tablet, extended release Once a Day, As Necessary. Invega Sustenna - 234MG INTRAMUSCULAR Suspension, Extended Release 064608 Inject two hundred thirty four (234) mg Suspension, Extended Release Every 4 Weeks lamoTRIgine - 25MG ORAL Tablet Take one (1) Tablet Twice a Day Invega Sustenna - 234 MG INTRAMUSCULAR Suspension, Extended Release 368480 Inject two hundred thirty four (234) mg Suspension, Extended Release Every 4 Weeks [place] Carbonate - 300 MG ORAL Capsule 974619 Take one (1 ) Capsule Each Morning AND two (2) Capsules At Bedtime RisperDAL - 1 MG ORAL Tablet 504533 Take one (1) Tablet Twice a Day, As Necessary RisperDAL - 1 MG ORAL Tablet 682301 Take one (1) Tablet Twice a Day, As Necessary [place] Carbonate - 300 MG ORAL Capsule 19780226 Take one (1 ) Capsule Each Morning AND two (2) Capsules At Bedtime Invega Sustenna - 234 MG INTRAMUSCULAR Suspension, Extended Release 880109 Inject two hundred thirty four (234) mg Suspension, Extended Release Every 4 Weeks Lab Results Date Name LOINC Ref Range Value Normalcy Glucose [facility] 2345-7 65-99 132 mg/dL Above high normal BUN [facility] 3094-0 7-25 16 mg/dL Normal (applies to non-numeric results) Creat [facility] 2160-0 0.60-1.35 0.87 mg/dL Normal (applies to non-numeric results) GFR/BSA.pred SerPl MDRD-vRate 32476-5 > OR=60 119 mL/min/1.73m2 Normal (applies to non-numeric results) GFR/BSA pred.black SerPl MDRD-vRate 10228-9 > OR=60 138 mL/min/1.73m2 Normal (applies to non- numeric results) BUN/Creat SerPl 3097-3 6-22 (calc) Sodium SerPl-sCnc 2951-2 135-146 140 mmol/L Normal (applies to non-numeric results) Potassium SerPl-sCnc 2823-3 3.5-5.3 4.0 mmol/L Normal (applies to non-numeric results) Chloride SerPl-sCnc 2075-0 98-110 104 mmol/L Normal (applies to non-numeric results) CO2 SerPl-sCnc 2028-9 19-30 25 mmol/L Normal (applies to non-numeric results) Calcium SerPl-mCnc 35018-1 8.6-10.3 10.4 mg/dL Above high normal WBC [...] to non-numeric results) Neuts Band # Bld 94207-0 0-750 cells/uL Normal (applies to non-numeric results) Metamyelocytes # Bld 46751-3 0 cells/uL Normal (applies to non-numeric results) Myelocytes # Bld 43081-8 0 cells/uL Normal (applies to non-numeric results) Promyelocytes # Bld 17207-6 0 cells/uL Normal (applies to non-numeric results) Lymphocytes # Bld Auto 731-0 850-3900 1997 cells/uL Normal (applies to non-numeric results) Monocytes # Bld Auto 742-7 200-950 503 cells/uL Normal (applies to non-numeric results) Eosinophil # Bld Auto 711-2 15-500 60 cells/uL Normal (applies to non-numeric results) Basophils # Bld Auto 704-7 0-200 27 cells/uL Normal (applies to non-numeric results) Blasts # Bld 04143-0 0 cells/uL Normal (applies to non-numeric results) nRBC # Bld 64180-6 0 cells/ uL Normal (applies to non-numeric [...] to non-numeric results) Atypical Lymphs Fr Bld 96445-1 0-10 % Normal (applies to non-numeric results) Monocytes NFr Bld Auto 5905-5 7.5 % Normal (applies to non-numeric results) Eosinophil NFr Bld Auto 713-8 0.9 % Normal (applies to non-numeric results) Basophils NFr Bld Auto 706-2 0.4 % Normal (applies to non-numeric results) Blasts NFr Bld Manual 709-6 % Normal (applies to non-numeric results) nRBC/100 WBC Bld-Rto 34126-9 0 /100 WBC Normal (applies to non-numeric results) Service Cmnt XXX-Imp 8251-1 Normal (applies to non-numeric results) Valproate SerPl-mCnc 4086-5 50.0- 100.0 <12.5 mg/L Below low normal Encounters Date Time Service Code Provider 08:00:00 am BLANCHE GREGORY 01:41:00 pm AMPARO FERREIRA Family History Functional Status NA Immunizations NA Vital Signs Date Time BP Pulse Temp Height Weight BMI 10:57:00 am over 75 in 207.4 lbs 25.9 kg/m^2 11:18:00 am over 75 in 204.6 lbs 25.6 kg/m^2 11:05:00 am over 75 in 198.8 lbs 24.8 kg/m^2 11:52:00 am over 75 in 202.4 lbs 25.3 kg/m^2 02:43:00 pm over 75 in 207.2 lbs 25.9 kg/m^2 11:40:00 am 133 over 81 64 bpm 75 in 213.2 lbs 26.6 kg/m^2 01:35:00 pm 120 over 86 215 lbs 11:31:00 am over 75 in 226 lbs 28.2 kg/m^2 02:15:00 pm 110 over 80 226 lbs 02:40:00 pm 130 over 100 232 lbs 02:10:00 pm over 75 in 229 lbs 28.6 kg/m^2 10:07:00 am 119 over 80 82 bpm 208.0 lbs 01:50:00 pm 130 over 90 238 lbs 03:10:00 pm 124 over 90 239 lbs 02:23:00 pm 128 over 108 242.2 lbs 11:30:00 am over 75 in 242 lbs 30.2 kg/m^2 01:40:00 pm 126 over 86 242 lbs 09:39:00 am 119 over 82 90 bpm 208.4 lbs 12:05:00 pm 117 over 77 80 bpm 208.0 lbs 11:06:00 am 120 over 70 72 bpm 212.0 lbs 10:26:00 am over 75 in 212.6 lbs 26.6 kg/m^2 10:02:00 am 117 over 79 84 bpm 209 lbs 10:56:00 am 133 over 84 80 bpm 210.0 lbs 02:02:00 pm over 75 in 207 lbs 25.9 kg/m^2 Social History NA Hospital Discharge Instructions NA Hospital Discharge medications Date Medication Dose, Form, Route, Freq Code Insulin-HumaLOG Instructions * Not Applicable Procedures NA Purpose Electronic Copy
--- OUTSIDE RECORDS SUMMARY | 2018-06-19 07:54 | XMS REPORT ---
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 Refer client to a vocational counselor [...] as indicated by providing the following services: 90348 interactive complexity 67496 psychiatric diagnostic eval w/ meds 81179 30 min psychotherapy add-on 87602 45 [place] [address] 60 min psychotherapy add-on 55470 med injection 17372 New Patient E&M (level 1) 90147 New Patient E&M (level 2) 35147 New Patient E&M (level 3) 94489 New patient E&M (level 4) 15847 New Patient E&M (level 5) 88850 Established Patient E&M (level 1) 62369 Established Patient E&M (level 2) 02548 Established Patient E&M (level 3) 85296 Established Patient E& amp;M (level 4) 09898 Established Patient E&M (level 5) 9935x prolonged service code 98561 case conference w/o clt & fam w/ [place] 997[address] case conference w/o clt w / MD [...] a car Look for employment opportunities using [email or web address] library, newspapers, employment papers and utilizing the [facility]. Refer client to a vocational counselor for [...] Case Conference with multidisciplinary members of the [facility] team as indicated, and/or Collaboration and coordination with outside medical providers as indicated by providing the following services: 22421 interactive complexity 82473 psychiatric diagnostic eval w/ meds 40116 30 min psychotherapy add-on 23985 45 [place] [address] 60 min psychotherapy add-on 68711 med injection 40932 New Patient E&M (level 1) 77463 New Patient E&M (level 2) 69546 New Patient E&M (level 3) 82288 New patient E&M (level 4) 73847 New Patient E&M (level 5) 63291 Established Patient E&M (level 1) 19751 Established Patient E&M (level 2) 14474 Established Patient E&M (level 3) 78539 Established Patient E& amp;M (level 4) 23002 Established Patient E&M (level 5) 9935x prolonged service code 71448 case conference w/o clt & fam w/ [place] 13388 case conference w/o clt w / MD To decrease incidence of depression, suicidal feelings/thoughts, mood instability and emotional lability so that I can feel normal CM will use recovery tools such as (Why I take Medications, Overcoming Fears About Medications and Exploring My Beliefs About Medication) and Therapeutic interventions (CBT, Open ended, solution focused and MA) to assist client with his [place] goal/recovery. I want to get job to have more money so that I can save to buy a car Look for employment opportunities using [email or web address] library, newspapers, employment papers and utilizing the [facility] [employer]. Refer client to a vocational counselor for [...] as indicated by providing the following services: 45166 interactive complexity 69594 psychiatric diagnostic eval w/ meds 31912 30 min psychotherapy add-on 55983 45 [place] [address] 60 min psychotherapy add-on 14336 med injection 26129 New Patient E&M (level 1) 34658 New Patient E&M (level 2) 92958 New Patient E&M (level 3) 77299 New patient E&M (level 4) 66470 New Patient E&M (level 5) 61725 Established Patient E&M (level 1) 02458 Established Patient E&M (level 2) 26350 Established Patient E&M (level 3) 45154 Established Patient E& amp;M (level 4) 77181 Established Patient E&M (level 5) 9935x prolonged service code 64044 case conference w/o clt & fam w/ [place] 40[address] case conference w/o clt w / MD To decrease incidence of depression, suicidal feelings/thoughts, mood instability and emotional lability so that I can feel normal CM will use recovery tools such as (Why I take Medications, Overcoming Fears About Medications and Exploring My Beliefs About Medication) and Therapeutic interventions (CBT, Open ended, solution focused and MA) to assist client with his [place] goal/recovery. I want to get job to have more money so that I can save to buy a car Look for employment opportunities using [email or web address] library, newspapers, employment papers and utilizing the [facility] [employer]. Refer client to a vocational counselor for [...] Case Conference with multidisciplinary members of the [facility] team as indicated, and/or Collaboration and coordination with outside medical providers as indicated by providing the following services: 52494 interactive complexity 10585 psychiatric diagnostic eval w/ meds 22876 30 min psychotherapy add-on 29101 45 [place] [address] 60 min psychotherapy add-on 25955 med injection 87046 New Patient E&M (level 1) 51572 New Patient E&M (level 2) 80760 New Patient E&M (level 3) 20198 New patient E&M (level 4) 22281 New Patient E&M (level 5) 27568 Established Patient E&M (level 1) 64359 Established Patient E&M (level 2) 26615 Established Patient E&M (level 3) 79770 Established Patient E& amp;M (level 4) 09554 Established Patient E&M (level 5) 9935x prolonged service code 59301 case conference w/o clt & bibiana w/ [place] 05114 case conference w/o clt w / MD I want to eventually get and have kids CM will use recovery tools such as (Why I take Medications, Overcoming Fears About Medications and Exploring My Beliefs About Medication) and Therapeutic interventions (CBT, Open ended, solution focused and MA) to assist client with his [place] goal/recovery. To decrease incidence of depression, suicidal feelings/thoughts, mood instability and emotional lability so that I can feel normal CM will use recovery tools such as (Why I take Medications, Overcoming Fears About Medications and Exploring My Beliefs About Medication) and Therapeutic interventions (CBT, Open ended, solution focused and MA) to assist client with his [place] goal/recovery. I want to eventually get and have kids CM will use recovery tools such as (Why I take Medications, Overcoming Fears About Medications and Exploring My Beliefs About Medication) and Therapeutic interventions (CBT, Open ended, solution focused and MA) to assist client with his [place] goal/recovery. I want to get job to have more money so that I can save to buy a car Look for employment opportunities using public library, newspapers, employment papers and utilizing the [facility] [employer]. Refer client to a vocational counselor for [...] as indicated by providing the following services: 86008 interactive complexity 44195 psychiatric diagnostic eval w/ meds 48505 30 min psychotherapy add-on 43910 45 [place] [address] 60 min psychotherapy add-on 84941 med injection 15400 New Patient E&M (level 1) 49607 New Patient E&M (level 2) 82526 New Patient E&M (level 3) 71955 New patient E&M (level 4) 06851 New Patient E&M (level 5) 40078 Established Patient E&M (level 1) 64820 Established Patient E&M (level 2) 35596 Established Patient E&M (level 3) 83587 Established Patient E& amp;M (level 4) 11239 Established Patient E&M (level 5) 9935x prolonged service code 61694 case conference w/o clt & fam w/ 85601 case conference w/o clt w / I want to eventually get and have kids CM will use recovery tools and therapeutic interventions to support client recovery I want to get job to have more money so that I can save to buy a car Look for employment opportunities using [email or web address] library, newspapers, employment papers and utilizing the [facility] [employer]. Refer client to a vocational counselor for [...] as indicated by providing the following services: 70211 interactive complexity 57727 psychiatric diagnostic eval w/ meds 55907 30 min psychotherapy add-on 06131 45 [place] [address] 60 min psychotherapy add-on 11993 med injection 12667 New Patient E&M (level 1) 24204 New Patient E&M (level 2) 73707 New Patient E&M (level 3) 40325 New patient E&M (level 4) 75667 New Patient E&M (level 5) 11499 Established Patient E&M (level 1) 41680 Established Patient E&M (level 2) 95272 Established Patient E&M (level 3) 76612 Established Patient E& amp;M (level 4) 58257 Established Patient E&M (level 5) 9935x prolonged service code 80041 case conference w/o clt & fam w/ 30413 case conference w/o clt w / I [...] Case Conference with multidisciplinary members of the [facility] team as indicated, and/or Collaboration and coordination with outside medical providers as indicated by providing the following services: 82253 interactive complexity 46441 psychiatric diagnostic eval w/ meds 97376 30 min psychotherapy add-on 50663 45 [place] [address] 60 min psychotherapy add-on 57177 med injection 78772 New Patient E&M (level 1) 94775 New Patient E&M (level 2) 00718 New Patient E&M (level 3) 97005 New patient E&M (level 4) 25857 New Patient E&M (level 5) 52295 Established Patient E&M (level 1) 23043 Established Patient E&M (level 2) 93420 Established Patient E&M (level 3) 77472 Established Patient E& amp;M (level 4) 33766 Established Patient E&M (level 5) 9935x prolonged service code 65774 case conference w/o clt & bibiana w/ 98397 case conference w/o clt w / I want to be happy and have a normal life CM will use recovery tools and therapeutic interventions to support client recovery Date Time Service Provider Location 10:00:00 am INDIVIDUAL APPOINTMENT BLOCK BUFFY TREJO [address] 02:00:00 pm INDIVIDUAL APPOINTMENT BLOCK DWAYNE MILLER [address] 02:30:00 pm STRENGTH BASED [facility] BLANCHE GREGORY [address] Medications Medication Code Dose,Form,Route,Freq Start Date End Date Insulin-HumaLOG Depakote ER - 500 mg ORAL tablet, extended release [id number] - 500 mg, ERT, PO (3)ea QHS Lexapro - 20 mg ORAL tablet [id number] - 20 mg, TAB, PO (1)ea QD Invega - 3 mg ORAL tablet, extended release [id number] - 3 mg, ERT, PO (1)ea PRN-QD Invega Sustenna - 156 mg/mL INTRAMUSCULAR suspension, extended release [id number] - 156 mg/mL, ERSUS, IM (156)mg Q4W - 20MG, TAB, PO (1)ea QD - 3MG, TER, PO (1)ea PRN-QD - 500MG, TER, PO (3)ea QHS - 156MG, SER, IM (156)mg Q4W Invega Sustenna - 156MG INTRAMUSCULAR Suspension, Extended Release [id number] Inject one hundred fifty six (156) mg Suspension, Extended Release Every 4 Weeks Lexapro - 20MG ORAL Tablet [id number] Take one (1) tablet Daily. Invega - 3MG ORAL Tablet, Extended Release [id number] Take one (1) tablet, extended release Once a Day, As Necessary. Depakote ER - 500MG ORAL Tablet, Extended Release [id number] Take three (3) tablets, extended releases At Bedtime Invega Sustenna - 156MG INTRAMUSCULAR Suspension, Extended Release [id number] 156MG, SER, IM, Inject one hundred fifty six (156) mg Suspension, Extended Release Every 4 Weeks 05/11 Invega Sustenna - 156MG INTRAMUSCULAR Suspension, Extended Release [id number] 156MG, SER, IM, Inject one hundred fifty six (156) mg Suspension, Extended Release Every 4 Weeks 07/09 Invega - 3MG ORAL Tablet, Extended Release [id number] Take one (1) tablet, extended release Once a Day, As Necessary. Lab Results Date Name LOINC Ref Range Value Normalcy 65-99 132 mg/dL 7-25 16 mg/dL 0.60-1.35 0.87 mg/dL > OR=60 119 mL/min/ 1.73m2 > OR=60 138 mL/min/ 1.73m2 6-22 (calc) 135-146 140 mmol/L 3.5-5.3 4.0 mmol/L 98-110 104 mmol/L 19-30 25 mmol/L 8.6-10.3 10.4 mg/dL 3.8-10.8 6.7 Thousand/ uL 4.20-5.80 5.17 Million/ uL 13.2-17.1 15.9 g/dL 38.5-50.0 47.3 % 80.0-100.0 91.5 fL 27.0-33.0 30.7 pg 32.0-36.0 33.5 g/dL 11.0-15.0 12.9 % 140-400 219 Thousand/uL 7.5-11.5 fL 6468-2054 4114 cells/uL 0-750 cells/uL 0 cells/uL 0 cells/uL 0 cells/uL 850-3900 1997 cells/uL 200-950 503 cells/uL 15-500 60 cells/uL 0-200 27 cells/uL 0 cells/uL 0 cells/uL 61.4 % % % % % 29.8 % 0-10 % 7.5 % 0.9 % 0.4 % % 0 /100 WBC 50.0-100.0 <12.5 mg/L Encounters Date Time Service Code Provider 08:00:00 am BLANCHE GREGORY 01:41:00 pm AMPARO FERREIRA Family History Functional Status NA Immunizations NA Vital Signs Date Time BP Pulse Temp Height Weight BMI 11:18:00 am over 75 in 204.6 lbs 25.6 kg/m^2 02:10:00 pm over 75 in 229 lbs 28.6 kg/m^2 01:50:00 pm 130 over 90 238 lbs 03:10:00 pm 124 over 90 239 lbs 02:23:00 pm 128 over 108 242.2 lbs 11:30:00 am over 75 in 242 lbs 30.2 kg/m^2 01:40:00 pm 126 over 86 242 lbs 11:05:00 am over 75 in 198.8 lbs [...] 02:40:00 pm 130 over 100 232 lbs Social History NA Hospital Discharge Instructions NA Hospital Discharge medications Date Medication Dose, Form, Route, Freq Code Insulin-HumaLOG Instructions * Not Applicable Procedures NA Purpose Electronic Copy
--- OUTSIDE RECORDS SUMMARY | 2018-06-19 07:54 | XMS REPORT ---
Author Author AMPARO FERREIRA Organization Unknown Address [address] [place] [address] Care Team Providers Care Personal Property Assessor Name Role Phone HANNA AMPARO Unavailable BUFFY [...] a car Look for employment opportunities using [employer] library, newspapers, employment papers and utilizing the [facility] [employer]. Refer client to a vocational counselor [...] as indicated by providing the following services: 02271 interactive complexity 17614 psychiatric diagnostic eval w/ meds 82581 30 min psychotherapy add-on 30438 45 [place] [address] 60 min psychotherapy add-on 44133 med injection 21813 New Patient E&M (level 1) 60259 New Patient E&M (level 2) 99845 New Patient E&M (level 3) 39712 New patient E&M (level 4) 98114 New Patient E&M (level 5) 01532 Established Patient E&M (level 1) 81410 Established Patient E&M (level 2) 63521 Established Patient E&M (level 3) 54774 Established Patient E& amp;M (level 4) 15771 Established Patient E&M (level 5) 9935x prolonged service code 72303 case conference w/o clt & fam w/ [place] 8[address] case conference w/o clt w / MD [...] a car Look for employment opportunities using [employer], newspapers, employment papers and utilizing the [facility] [employer] [place]. Refer client to a vocational counselor for [...] Case Conference with multidisciplinary members of the [facility] team as indicated, and/or Collaboration and coordination with outside medical providers as indicated by providing the following services: 71712 interactive complexity 57913 psychiatric diagnostic eval w/ meds 21873 30 min psychotherapy add-on 48236 45 [place] [address] 60 min psychotherapy add-on 52508 med injection 66291 New Patient E&M (level 1) 61247 New Patient E&M (level 2) 82703 New Patient E&M (level 3) 00548 New patient E&M (level 4) 94131 New Patient E&M (level 5) 22183 Established Patient E&M (level 1) 49514 Established Patient E&M (level 2) 49408 Established Patient E&M (level 3) 62869 Established Patient E& amp;M (level 4) 55097 Established Patient E&M (level 5) 9935x prolonged service code 68464 case conference w/o clt & fam w/ [place] [address]12[address] case conference w/o clt w / MD To decrease incidence of depression, suicidal feelings/thoughts, mood instability and emotional lability so that I can feel normal CM will use recovery tools such as (Why I take Medications, Overcoming Fears About Medications and Exploring My Beliefs About Medication) and Therapeutic interventions (CBT, Open ended, solution focused and OR) to assist client with his [place] goal/recovery. I want to get job to have more money so that I can save to buy a car Look for employment opportunities using [employer] library, newspapers, employment papers and utilizing the [facility] [employer]. Refer client to a vocational counselor for [...] as indicated by providing the following services: 44107 interactive complexity 34636 psychiatric diagnostic eval w/ meds 81303 30 min psychotherapy add-on 64725 45 [place] [address] 60 min psychotherapy add-on 00618 med injection 57804 New Patient E&M (level 1) 40656 New Patient E&M (level 2) 00945 New Patient E&M (level 3) 32832 New patient E&M (level 4) 68120 New Patient E&M (level 5) 58931 Established Patient E&M (level 1) 13343 Established Patient E&M (level 2) 04431 Established Patient E&M (level 3) 17897 Established Patient E& amp;M (level 4) 52062 Established Patient E&M (level 5) 9935x prolonged service code 18891 case conference w/o clt & fam w/ [place] [address] case conference w/o clt w / MD To decrease incidence of depression, suicidal feelings/thoughts, mood instability and emotional lability so that I can feel normal CM will use recovery tools such as (Why I take Medications, Overcoming Fears About Medications and Exploring My Beliefs About Medication) and Therapeutic interventions (CBT, Open ended, solution focused and OR) to assist client with his [place] goal/recovery. I want to get job to have more money so that I can save to buy a car Look for employment opportunities using [employer], newspapers, employment papers and utilizing the [facility] [employer]. Refer client to a vocational counselor for [...] Case Conference with multidisciplinary members of the [facility] team as indicated, and/or Collaboration and coordination with outside medical providers as indicated by providing the following services: 75002 interactive complexity 12216 psychiatric diagnostic eval w/ meds 46732 30 min psychotherapy add-on 95425 45 [place] [address] 60 min psychotherapy add-on 28145 med injection 56615 New Patient E&M (level 1) 65819 New Patient E&M (level 2) 77651 New Patient E&M (level 3) 03008 New patient E&M (level 4) 02733 New Patient E&M (level 5) 93832 Established Patient E&M (level 1) 10049 Established Patient E&M (level 2) 76514 Established Patient E&M (level 3) 10429 Established Patient E& amp;M (level 4) 75091 Established Patient E&M (level 5) 9935x prolonged service code 19151 case conference w/o clt & [place] w/ [place] [address] case conference w/o clt w / MD I want to eventually get and have kids CM will use recovery tools such as (Why I take Medications, Overcoming Fears About Medications and Exploring My Beliefs About Medication) and Therapeutic interventions (CBT, Open ended, solution focused and OR) to assist client with his [place] goal/recovery. To decrease incidence of depression, suicidal feelings/thoughts, mood instability and emotional lability so that I can feel normal CM will use recovery tools such as (Why I take Medications, Overcoming Fears About Medications and Exploring My Beliefs About Medication) and Therapeutic interventions (CBT, Open ended, solution focused and OR) to assist client with his [place] goal/recovery. I want to eventually get and have kids CM will use recovery tools such as (Why I take Medications, Overcoming Fears About Medications and Exploring My Beliefs About Medication) and Therapeutic interventions (CBT, Open ended, solution focused and OR) to assist client with his [place] goal/recovery. I want to get job to have more money so that I can save to buy a car Look for employment opportunities using public library, newspapers, employment papers and utilizing the [facility] [employer]. Refer client to a vocational counselor for [...] as indicated by providing the following services: 10799 interactive complexity 48143 psychiatric diagnostic eval w/ meds 31373 30 min psychotherapy add-on 99654 45 [place] [address] 60 min psychotherapy add-on 55984 med injection 17340 New Patient E&M (level 1) 32113 New Patient E&M (level 2) 16890 New Patient E&M (level 3) 27995 New patient E&M (level 4) 78391 New Patient E&M (level 5) 20899 Established Patient E&M (level 1) 57216 Established Patient E&M (level 2) 29055 Established Patient E&M (level 3) 50754 Established Patient E& amp;M (level 4) 71926 Established Patient E&M (level 5) 9935x prolonged service code 69647 case conference w/o clt & fam w/ 75009 case conference w/o clt w / I want to eventually get and have kids CM will use recovery tools and therapeutic interventions to support client recovery I want to get job to have more money so that I can save to buy a car Look for employment opportunities using [employer], newspapers, employment papers and utilizing the [facility] [employer]. Refer client to a vocational counselor for [...] as indicated by providing the following services: 03530 interactive complexity 13417 psychiatric diagnostic eval w/ meds 64501 30 min psychotherapy add-on 48907 45 [place] [address] 60 min psychotherapy add-on 90006 med injection 69450 New Patient E&M (level 1) 91645 New Patient E&M (level 2) 96889 New Patient E&M (level 3) 38972 New patient E&M (level 4) 34009 New Patient E&M (level 5) 33081 Established Patient E&M (level 1) 38712 Established Patient E&M (level 2) 65749 Established Patient E&M (level 3) 72268 Established Patient E& amp;M (level 4) 75927 Established Patient E&M (level 5) 9935x prolonged service code 86755 case conference w/o clt & fam w/ 18359 case conference w/o clt w / I [...] Case Conference with multidisciplinary members of the [facility] team as indicated, and/or Collaboration and coordination with outside medical providers as indicated by providing the following services: 39692 interactive complexity 27376 psychiatric diagnostic eval w/ meds 20692 30 min psychotherapy add-on 05361 45 [place] [address] 60 min psychotherapy add-on 15202 med injection 43894 New Patient E&M (level 1) 42111 New Patient E&M (level 2) 57757 New Patient E&M (level 3) 38860 New patient E&M (level 4) 74515 New Patient E&M (level 5) 93548 Established Patient E&M (level 1) 29154 Established Patient E&M (level 2) 04087 Established Patient E&M (level 3) 76056 Established Patient E& amp;M (level 4) 65302 Established Patient E&M (level 5) 9935x prolonged service code 04593 case conference w/o clt & bibiana w/ 05537 case conference w/o clt w / I want to be happy and have a normal life CM will use recovery tools and therapeutic interventions to support client recovery Date Time Service Provider Location 10:00:00 am INDIVIDUAL APPOINTMENT JARED TREJO [address] 01:00:00 pm STRENGTH BASED CASE MGMT [place] [address] 02:00:00 pm INDIVIDUAL APPOINTMENT BLOCK DWAYNE MILLER [address] Lab Results Date Name LOINC Ref Range [...] 12.9 % 140-400 219 Thousand/uL 7.5-11.5 fL 8155-9634 4114 cells/uL 0-750 cells/uL 0 cells/uL 0 cells/uL 0 cells/uL 850-3900 1997 cells/uL 200-950 503 cells/uL 15-500 60 cells/uL 0-200 27 cells/uL 0 cells/uL 0 cells/uL 61.4 % % % % % 29.8 % 0-10 % 7.5 % 0.9 % 0.4 % % 0 /100 WBC 50.0-100.0 <12.5 mg/L Encounters Date Time Service Code Provider 08:00:00 am BLANCHE GREGORY 01:41:00 pm AMPARO FERREIRA 12:00:00 am Comm psy face-face per 15min H0036 [place] 12:00:00 am Comm psy face-face per 15min H0036 [place] 12:00:00 am Comm psy face-face per 15min H0036 [place] 12:00:00 am Comm psy face-face per 15min H0036 [place] 12:00:00 am ENGLISH AS A SECOND LANGUAGE INSTRUCTOR INJECTION 61977 BONNIE ESPANA 12:00:00 am Comm psy face-face per 15min H0036 [place] 12:00:00 am ESTABLISHED PATIENT E&M Level III 30579 JEFFRYGuero NEIL 12:00:00 am TARGETED CASE MANAGEMENT T1017 [place] [facility] 12:00:00 am Comm psy face-face per 15min H0036 [place] 12:00:00 am Comm psy face-face per 15min H0036 JANKI STARR 12:00:00 am Comm psy face-face per 15min H0036 [place] 12:00:00 am Comm psy face-face per 15min H0036 [place] [facility] 12:00:00 am ENGLISH AS A SECOND LANGUAGE INSTRUCTOR INJECTION 19009 LILI ARRIETA 12:00:00 am Comm psy face-face per 15min H0036 [place] 12:00:00 am Comm psy face-face per 15min H0036 [place] 12:00:00 am ENGLISH AS A SECOND LANGUAGE INSTRUCTOR INJECTION 05589 BONNIE ESPANA 12:00:00 am Comm psy face-face per 15min H0036 JANKI STARR 12:00:00 am Comm psy face-face per 15min H003Wilner STARR 12:00:00 am Comm psy face-face per 15min H0036 BLANCHE GREGORY 12:00:00 am Comm psy face-face per 15min H0036 JANKI STARR 12:00:00 am Comm psy face-face per 15min H0036 JANKI STARR 12:00:00 am Comm psy face-face per 15min H0036 JANKI STARR 12:00:00 am Comm psy face-face per 15min H0036 JANKI STARR 12:00:00 am ENGLISH AS A SECOND LANGUAGE INSTRUCTOR INJECTION 55749 BONNIE ESPANA 12:00:00 am ESTABLISHED PATIENT E&M Level III 80251 BUFFY BELLDY 12:00:00 am TARGETED CASE MANAGEMENT T1017 BLANCHE PRICEOLI 12:00:00 am TARGETED CASE MANAGEMENT T1017 [place] 12:00:00 am ENGLISH AS A SECOND LANGUAGE INSTRUCTOR INJECTION 45511 BONNIE ESPANA 12:00:00 am Comm psy face-face per 15min H0036 [place] 12:00:00 am ENGLISH AS A SECOND LANGUAGE INSTRUCTOR INJECTION 37616 BONNIE ESPANA 12:00:00 am Comm psy face-face per 15min H0036 JANKI STARR 12:00:00 am TARGETED CASE MANAGEMENT T1017 [place] 12:00:00 am Comm psy face-face per 15min H0036 JANKI STARR 12:00:00 am Comm psy face-face per 15min H0036 [place] 12:00:00 am Comm psy face-face per 15min H0036 JANKI STARR 12:00:00 am ENGLISH AS A SECOND LANGUAGE INSTRUCTOR INJECTION 12845 BONNIE ESPANA 12:00:00 am TARGETED CASE MANAGEMENT T1017 BLANCHE PRICEOLI 12:00:00 am Comm psy face-face per 15min H0036 JANKI STARR 12:00:00 am Comm psy face-face per 15min H0036 JANKI STARR 12:00:00 am Comm psy face-face per 15min H0036 JANKI SINGHSHARRON 12:00:00 am Comm psy face-face per 15min H0036 BLANCHE GREGORY 12:00:00 am TARGETED CASE MANAGEMENT T10124 [place] 12:00:00 am Comm psy face-face per 15min H0036 BLANCHE GREGORY 12:00:00 am ENGLISH AS A SECOND LANGUAGE INSTRUCTOR INJECTION 32180 BONNIE ESPANA 12:00:00 am ESTABLISHED PATIENT E&M Level III 43919 BUFFY TREJO 12:00:00 am Comm psy face-face per 15min H0036 BLANCHE GREGORY 12:00:00 am Comm psy face-face per 15min H0036 BLANCHE GREGORY 12:00:00 am Comm psy face-face per 15min H0036 BLANCHE GREGORY 12:00:00 am Comm psy face-face per 15min H0036 [place] 12:00:00 am ENGLISH AS A SECOND LANGUAGE INSTRUCTOR INJECTION 05500 BONNIE ESPANA 12:00:00 am Comm psy face-face per 15min H0036 BLANCHE GREGORY 12:00:00 am Comm psy face-face per 15min H0036 [place] 12:00:00 am Comm psy face-face per 15min H0036 BLANCHE GREGORY 12:00:00 am Comm psy face-face per 15min H0036 [place] 12:00:00 am ENGLISH AS A SECOND LANGUAGE INSTRUCTOR INJECTION 97094 TYLER NICHOLS 12:00:00 am Comm psy face-face per 15min H0036 BLANCHE GREGORY 12:00:00 am Comm psy face-face per 15min H0036 [place] 12:00:00 am Comm psy face-face per 15min H0036 BLANCHE GREGORY 12:00:00 am TARGETED CASE MANAGEMENT T1017 BLANCHE GREGORY 12:00:00 am ENGLISH AS A SECOND LANGUAGE INSTRUCTOR INJECTION 43727 TYLER SHAHIDOFT 12:00:00 am TARGETED CASE MANAGEMENT T1017 [place] 12:00:00 am Comm psy face-face per 15min H0036 BLANCHE GREGORY 12:00:00 am ENGLISH AS A SECOND LANGUAGE INSTRUCTOR INJECTION 42249 TYLER KEYOFT 12:00:00 am Comm psy face-face per 15min H0036 BLANCHE GREGORY 12:00:00 am Comm psy face-face per 15min H0036 BLANCHE GREGORY 12:00:00 am Comm psy face-face per 15min H0036 BLANCHE GREGORY 12:00:00 am Comm psy face-face per 15min H0036 BLANCHE GREGORY 12:00:00 am ENGLISH AS A SECOND LANGUAGE INSTRUCTOR INJECTION 17623 TYLER OHARAT 12:00:00 am Comm psy face-face per 15min H0036 BLANCHE GREGORY 12:00:00 am ENGLISH AS A SECOND LANGUAGE INSTRUCTOR INJECTION 56595 TYLER KEYOFT 12:00:00 am Comm psy face-face per 15min H0036 BLANCHE GREGORY Family History Functional Status NA Immunizations NA [...] Social History NA Hospital Discharge Instructions NA Instructions * Not Applicable Procedures NA Purpose Electronic Copy
--- OUTSIDE RECORDS SUMMARY | 2018-06-19 07:54 | XMS REPORT | Continuity of Care Document ---
Author Author Auto Generated Organization Unknown Address [address] [address] Allergies and Adverse Reactions Allergen/Reactant Reaction Reaction Severity Status morphine N/A N/A N/A Vicodin N/A N/A N/A Encounters Encounter Performer Location Date ADULT PROGRAM [facility] 05/25/2008 [facility] AMPARO FERREIRA [facility] 03/04/2014 Medications Medication Instructions Start Date Status [...] applies to non-numeric results) 05/27/2014 06:45 AM [phone] MPV DNRfL Normal (applies to non-numeric results) 05/27/2014 06:45 AM 7.5-11.5 6399 ABSOLUTE NEUTROPHILS 4114cells/uL Normal ( applies to non-numeric results) 05/27/2014 06:45 AM 6486-1560 6399 ABSOLUTE BAND NEUTROPHILS DNRcells/uL Normal (applies [...] applies to non-numeric results) 05/27/2014 06:45 AM 702-271 7823 ABSOLUTE EOSINOPHILS 60cells/uL Normal ( applies to [...] to non- numeric results) 05/27/2014 06:45 AM 77114 GLUCOSE 132mg/dL Above high normal 05/27/2014 06:45 AM 65-99 68612 UREA NITROGEN (BUN) 16mg/dL Normal ( applies to non-numeric results) 05/27/2014 06:45 AM 7-25 43969 CREATININE 0.87mg/dL Normal (applies to non -numeric results) 05/27/2014 06:45 AM 0.60-1.35 87331 eGFR NON-AFR. PALAUAN 119mL/min/1.73m2 Normal (applies to non-numeric results) 05/27/2014 06:45 AM 47423 eGFR 138mL/min/1.73m2 Normal (applies to non-numeric results) 05/27/2014 06:45 AM 55077 BUN/CREATININE RATIO NOT APPLICABLE(calc) Unknown 05/27/2014 06:45 AM 6-22 44211 SODIUM 140mmol/L Normal (applies to non- numeric results) 05/27/2014 06:45 AM 135-146 40800 POTASSIUM 4.0mmol/L Normal (applies to non- numeric results) 05/27/2014 06:45 AM 3.5-5.3 66029 CHLORIDE 104mmol/L Normal (applies to non- numeric results) 05/27/2014 06:45 AM 98-110 22847 CARBON DIOXIDE 25mmol/L Normal (applies to non-numeric results) 05/27/2014 06:45 AM 19-30 42367 CALCIUM 10.4mg/dL Above high normal 05/27/2014 06:45 [...]
--- OUTSIDE RECORDS SUMMARY | 2018-06-19 07:54 | XMS REPORT | Continuity of Care Document ---
Author Author Auto Generated Organization Unknown Address [address] [address] Allergies and Adverse Reactions Allergen/Reactant Reaction Reaction Severity Status morphine N/A N/A N/A Vicodin N/A N/A N/A Encounters Encounter Performer Location Date ADULT PROGRAM [facility] 05/25/2008 [facility] AMPARO FERREIRA [facility] 03/04/2014 Medications Medication Instructions Start Date [...] applies to non-numeric results) 05/27/2014 06:45 AM [phone] MPV DNRfL Normal (applies to non-numeric results) 05/27/2014 06:45 AM 7.5-11.5 6399 ABSOLUTE NEUTROPHILS 4114cells/uL Normal ( applies to non-numeric results) 05/27/2014 06:45 AM 8805-4935 6399 ABSOLUTE BAND NEUTROPHILS DNRcells/uL Normal (applies [...] applies to non-numeric results) 05/27/2014 06:45 AM 887-661 1410 ABSOLUTE EOSINOPHILS 60cells/uL Normal ( applies to [...] to non- numeric results) 05/27/2014 06:45 AM 09311 GLUCOSE 132mg/dL Above high normal 05/27/2014 06:45 AM 65-99 37465 UREA NITROGEN (BUN) 16mg/dL Normal ( applies to non-numeric results) 05/27/2014 06:45 AM 7-25 43522 CREATININE 0.87mg/dL Normal (applies to non -numeric results) 05/27/2014 06:45 AM 0.60-1.35 92617 eGFR NON-AFR. AUSTRIAN 119mL/min/1.73m2 Normal (applies to non-numeric results) 05/27/2014 06:45 AM 66766 eGFR 138mL/min/1.73m2 Normal (applies to non-numeric results) 05/27/2014 06:45 AM 99046 BUN/CREATININE RATIO NOT APPLICABLE(calc) Unknown 05/27/2014 06:45 AM 6-22 19114 SODIUM 140mmol/L Normal (applies to non- numeric results) 05/27/2014 06:45 AM 135-146 95732 POTASSIUM 4.0mmol/L Normal (applies to non- numeric results) 05/27/2014 06:45 AM 3.5-5.3 27514 CHLORIDE 104mmol/L Normal (applies to non- numeric results) 05/27/2014 06:45 AM 98-110 86740 CARBON DIOXIDE 25mmol/L Normal (applies to non-numeric results) 05/27/2014 06:45 AM 19-30 00903 CALCIUM 10.4mg/dL Above high normal 05/27/2014 06:45 [...]
--- OUTSIDE RECORDS SUMMARY | 2018-06-19 07:55 | XMS REPORT | Continuity of Care Document ---
Author Author Auto Generated Organization Unknown Address [address] [address] Allergies and Adverse Reactions Allergen/Reactant Reaction Reaction Severity Status morphine N/A N/A N/A Vicodin N/A N/A N/A Encounters Encounter Performer Location Date ADULT PROGRAM [facility] 05/25/2008 [facility] AMPARO FERREIRA [facility] 03/04/2014 Medications Medication Instructions Start [...] applies to non-numeric results) 05/27/2014 06:45 AM [phone] MPV DNRfL Normal (applies to non-numeric results) 05/27/2014 06:45 AM 7.5-11.5 6399 ABSOLUTE NEUTROPHILS 4114cells/uL Normal ( applies to non-numeric results) 05/27/2014 06:45 AM 0070-3793 6399 ABSOLUTE BAND NEUTROPHILS DNRcells/uL Normal (applies [...] applies to non-numeric results) 05/27/2014 06:45 AM 301-117 8223 ABSOLUTE EOSINOPHILS 60cells/uL Normal ( applies to [...] to non- numeric results) 05/27/2014 06:45 AM 64871 GLUCOSE 132mg/dL Above high normal 05/27/2014 06:45 AM 65-99 98952 UREA NITROGEN (BUN) 16mg/dL Normal ( applies to non-numeric results) 05/27/2014 06:45 AM 7-25 65383 CREATININE 0.87mg/dL Normal (applies to non -numeric results) 05/27/2014 06:45 AM 0.60-1.35 40576 eGFR NON-AFR. ARMENIAN 119mL/min/1.73m2 Normal (applies to non-numeric results) 05/27/2014 06:45 AM 96245 eGFR 138mL/min/1.73m2 Normal (applies to non-numeric results) 05/27/2014 06:45 AM 38178 BUN/CREATININE RATIO NOT APPLICABLE(calc) Unknown 05/27/2014 06:45 AM 6-22 08011 SODIUM 140mmol/L Normal (applies to non- numeric results) 05/27/2014 06:45 AM 135-146 64353 POTASSIUM 4.0mmol/L Normal (applies to non- numeric results) 05/27/2014 06:45 AM 3.5-5.3 10791 CHLORIDE 104mmol/L Normal (applies to non- numeric results) 05/27/2014 06:45 AM 98-110 56202 CARBON DIOXIDE 25mmol/L Normal (applies to non-numeric results) 05/27/2014 06:45 AM 19-30 64929 CALCIUM 10.4mg/dL Above high normal 05/27/2014 06:45 [...]
--- OUTSIDE RECORDS SUMMARY | 2018-06-19 07:55 | XMS REPORT ---
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 Refer client to a vocational counselor [...] as indicated by providing the following services: 48592 interactive complexity 68159 psychiatric diagnostic eval w/ meds 17128 30 min psychotherapy add-on 21672 45 [place] [address] 60 min psychotherapy add-on 17218 med injection 98370 New Patient E&M (level 1) 88924 New Patient E&M (level 2) 74728 New Patient E&M (level 3) 78639 New patient E&M (level 4) 39388 New Patient E&M (level 5) 16439 Established Patient E&M (level 1) 08787 Established Patient E&M (level 2) 81378 Established Patient E&M (level 3) 85763 Established Patient E& amp;M (level 4) 74473 Established Patient E&M (level 5) 9935x prolonged service code 83251 case conference w/o clt & fam w/ [place] 68221 case conference w/o clt w / MD [...] a car Look for employment opportunities using [employer], newspapers, employment papers and utilizing the [facility] [employer] [facility]. Refer client to a vocational counselor for [...] Case Conference with multidisciplinary members of the [facility] team as indicated, and/or Collaboration and coordination with outside medical providers as indicated by providing the following services: 66918 interactive complexity 46436 psychiatric diagnostic eval w/ meds 91538 30 min psychotherapy add-on 45938 45 [place] [address] 60 min psychotherapy add-on 67394 med injection 01845 New Patient E&M (level 1) 35700 New Patient E&M (level 2) 71947 New Patient E&M (level 3) 95623 New patient E&M (level 4) 29497 New Patient E&M (level 5) 69358 Established Patient E&M (level 1) 67017 Established Patient E&M (level 2) 21868 Established Patient E&M (level 3) 99888 Established Patient E& amp;M (level 4) 27886 Established Patient E&M (level 5) 9935x prolonged service code 06205 case conference w/o clt & fam w/ [place] 21918 case conference w/o clt w / MD To decrease incidence of depression, suicidal feelings/thoughts, mood instability and emotional lability so that I can feel normal CM will use recovery tools such as (Why I take Medications, Overcoming Fears About Medications and Exploring My Beliefs About Medication) and Therapeutic interventions (CBT, Open ended, solution focused and WA) to assist client with his [place] goal/recovery. I want to get job to have more money so that I can save to buy a car Look for employment opportunities using [employer], newspapers, employment papers and utilizing the [facility] [employer]. Refer client to a vocational counselor for [...] as indicated by providing the following services: 77536 interactive complexity 22975 psychiatric diagnostic eval w/ meds 45319 30 min psychotherapy add-on 13727 45 [place] [address] 60 min psychotherapy add-on 84248 med injection 06488 New Patient E&M (level 1) 64108 New Patient E&M (level 2) 53293 New Patient E&M (level 3) 88996 New patient E&M (level 4) 10640 New Patient E&M (level 5) 51211 Established Patient E&M (level 1) 52482 Established Patient E&M (level 2) 29417 Established Patient E&M (level 3) 47037 Established Patient E& amp;M (level 4) 17903 Established Patient E&M (level 5) 9935x prolonged service code 63270 case conference w/o clt & fam w/ [place] 8101[address] case conference w/o clt w / MD To decrease incidence of depression, suicidal feelings/thoughts, mood instability and emotional lability so that I can feel normal CM will use recovery tools such as (Why I take Medications, Overcoming Fears About Medications and Exploring My Beliefs About Medication) and Therapeutic interventions (CBT, Open ended, solution focused and WA) to assist client with his [place] goal/recovery. I want to get job to have more money so that I can save to buy a car Look for employment opportunities using [employer], newspapers, employment papers and utilizing the [facility] [employer]. Refer client to a vocational counselor for [...] Case Conference with multidisciplinary members of the [facility] team as indicated, and/or Collaboration and coordination with outside medical providers as indicated by providing the following services: 02195 interactive complexity 91664 psychiatric diagnostic eval w/ meds 31522 30 min psychotherapy add-on 86299 [place] [address] 60 min psychotherapy add-on 91788 med injection 23356 New Patient E&M (level 1) 00854 New Patient E&M (level 2) 04420 New Patient E&M (level 3) 66021 New patient E&M (level 4) 50558 New Patient E&M (level 5) 96968 Established Patient E&M (level 1) 88056 Established Patient E&M (level 2) 41378 Established Patient E&M (level 3) 55856 Established Patient E& amp;M (level 4) 74458 Established Patient E&M (level 5) 9935x prolonged service code 87028 case conference w/o clt & bibiana w/ [place] 03013 case conference w/o clt w / MD I want to eventually get and have kids CM will use recovery tools such as (Why I take Medications, Overcoming Fears About Medications and Exploring My Beliefs About Medication) and Therapeutic interventions (CBT, Open ended, solution focused and WA) to assist client with his [place] goal/recovery. To decrease incidence of depression, suicidal feelings/thoughts, mood instability and emotional lability so that I can feel normal CM will use recovery tools such as (Why I take Medications, Overcoming Fears About Medications and Exploring My Beliefs About Medication) and Therapeutic interventions (CBT, Open ended, solution focused and WA) to assist client with his [place] goal/recovery. I want to eventually get and have kids CM will use recovery tools such as (Why I take Medications, Overcoming Fears About Medications and Exploring My Beliefs About Medication) and Therapeutic interventions (CBT, Open ended, solution focused and WA) to assist client with his [place] goal/recovery. I want to get job to have more money so that I can save to buy a car Look for employment opportunities using public library, newspapers, employment papers and utilizing the [facility] [employer]. Refer client to a vocational counselor for [...] as indicated by providing the following services: 83313 interactive complexity 73769 psychiatric diagnostic eval w/ meds 39284 30 min psychotherapy add-on 47388 45 [place] [address] 60 min psychotherapy add-on 02106 med injection 14618 New Patient E&M (level 1) 67012 New Patient E&M (level 2) 16686 New Patient E&M (level 3) 06470 New patient E&M (level 4) 89199 New Patient E&M (level 5) 67092 Established Patient E&M (level 1) 49842 Established Patient E&M (level 2) 89164 Established Patient E&M (level 3) 64912 Established Patient E& amp;M (level 4) 91871 Established Patient E&M (level 5) 9935x prolonged service code 53556 case conference w/o clt & fam w/ 87504 case conference w/o clt w / I want to eventually get and have kids CM will use recovery tools and therapeutic interventions to support client recovery I want to get job to have more money so that I can save to buy a car Look for employment opportunities using [employer], newspapers, employment papers and utilizing the [facility] [employer]. Refer client to a vocational counselor for [...] as indicated by providing the following services: 27596 interactive complexity 33428 psychiatric diagnostic eval w/ meds 82619 30 min psychotherapy add-on 82510 45 [place] [address] 60 min psychotherapy add-on 48242 med injection 60389 New Patient E&M (level 1) 29199 New Patient E&M (level 2) 82217 New Patient E&M (level 3) 71226 New patient E&M (level 4) 39701 New Patient E&M (level 5) 57384 Established Patient E&M (level 1) 89875 Established Patient E&M (level 2) 11082 Established Patient E&M (level 3) 33982 Established Patient E& amp;M (level 4) 48827 Established Patient E&M (level 5) 9935x prolonged service code 52486 case conference w/o clt & fam w/ 31641 case conference w/o clt w / I [...] Case Conference with multidisciplinary members of the [facility] team as indicated, and/or Collaboration and coordination with outside medical providers as indicated by providing the following services: 76808 interactive complexity 97407 psychiatric diagnostic eval w/ meds 38491 30 min psychotherapy add-on 68583 45 [place] [address] 60 min psychotherapy add-on 29881 med injection 22058 New Patient E&M (level 1) 66268 New Patient E&M (level 2) 65864 New Patient E&M (level 3) 54131 New patient E&M (level 4) 03701 New Patient E&M (level 5) 42255 Established Patient E&M (level 1) 11656 Established Patient E&M (level 2) 48907 Established Patient E&M (level 3) 00881 Established Patient E& amp;M (level 4) 79076 Established Patient E&M (level 5) 9935x prolonged service code 34233 case conference w/o jose carlos & bibiana w/ 69410 case conference w/o jose carlos w / [...] Case Conference with multidisciplinary members of the [facility] team as indicated, and/or Collaboration and coordination with outside medical providers as indicated by providing the following services: 15838 interactive complexity 32965 psychiatric diagnostic eval w/ meds 28789 30 min psychotherapy add-on 88597 45 [place] [address] 60 min psychotherapy add-on 65548 med injection 63169 New Patient E&M (level 1) 62646 New Patient E&M (level 2) 84224 New Patient E&M (level 3) 69295 New patient E&M (level 4) 15483 New Patient E&M (level 5) 91119 Established Patient E&M (level 1) 73188 Established Patient E&M (level 2) 42959 Established Patient E&M (level 3) 84720 Established Patient E& amp;M (level 4) 35565 Established Patient E&M (level 5) 9935x prolonged service code 61276 case conference w/o clt & fam w/ 81530 case conference w/o jose carlos w / Improve and maintain functioning through medical psychiatric services. Initial Psychiatric Evaluation, Ongoing medication monitoring and management, Case Conference with multidisciplinary members of the [facility] team as indicated, and/or Collaboration and coordination with outside medical providers as indicated by providing the following services: 38685 interactive complexity 16930 psychiatric diagnostic eval w/ meds 29202 30 min psychotherapy add-on 45500 45 [place] [address] 60 min psychotherapy add-on 87950 med injection 27736 New Patient E&M (level 1) 37860 New Patient E&M (level 2) 62053 New Patient E&M (level 3) 25733 New patient E&M (level 4) 17186 New Patient E&M (level 5) 31774 Established Patient E&M (level 1) 93967 Established Patient E&M (level 2) 54810 Established Patient E&M (level 3) 80883 Established Patient E& amp;M (level 4) 83952 Established Patient E&M (level 5) 9935x prolonged service code 81792 case conference w/o clt & bibiana w/ 37423 case conference w/o jose carlos w / [...] Case Conference with multidisciplinary members of the [facility] team as indicated, and/or Collaboration and coordination with outside medical providers as indicated by providing the following services: 85736 interactive complexity 00794 psychiatric diagnostic eval w/ meds 19377 30 min psychotherapy add-on 40295 45 [place] [address] 60 min psychotherapy add-on 35937 med injection 88547 New Patient E&M (level 1) 84031 New Patient E&M (level 2) 86182 New Patient E&M (level 3) 00593 New patient E&M (level 4) 39342 New Patient E&M (level 5) 31466 Established Patient E&M (level 1) 85815 Established Patient E&M (level 2) 51958 Established Patient E&M (level 3) 06174 Established Patient E& amp;M (level 4) 61903 Established Patient E&M (level 5) 9935x prolonged service code 90784 case conference w/o clt & fam w/ [place] 334[address] case conference w/o clt w / MD H0038 Peer Support Individual H2017 Psychosocial Rehab Indiv Date Time Service Provider Location 11:00:00 am STRENGTH BASED CASE MGMT BLANCHE GREGORY [address] Medications Medication Code Dose,Form,Route,Freq Start Date End Date Insulin-HumaLOG Depakote ER - 500 mg ORAL tablet, extended release [id number] - 500 mg, ERT, PO (3)ea QHS Lexapro - 20 mg ORAL tablet [id number] - 20 mg, TAB, PO (1)ea QD Invega - 3 mg ORAL tablet, extended release [id number] - 3 mg, ERT, PO (1)ea PRN-QD Invega Sustenna - 156 mg/mL INTRAMUSCULAR suspension, extended release [id number] - 156 mg/mL, ERSUS, IM (156)mg Q4W - 20MG, TAB, PO (1)ea QD - 3MG, TER, PO (1)ea PRN-QD - 500MG, TER, PO (3)ea QHS - 156MG, SER, IM (156)mg Q4W Invega Sustenna - 156MG INTRAMUSCULAR Suspension, Extended Release [id number] Inject one hundred fifty six (156) mg Suspension, Extended Release Every 4 Weeks Lexapro - 20MG ORAL Tablet [id number] Take one (1) tablet Daily. Invega - 3MG ORAL Tablet, Extended Release [id number] Take one (1) tablet, extended release Once a Day, As Necessary. Depakote ER - 500MG ORAL Tablet, Extended Release [id number] Take three (3) tablets, extended releases At Bedtime Invega Sustenna - 156MG INTRAMUSCULAR Suspension, Extended Release [id number] 156MG, SER, IM, Inject one hundred fifty six (156) mg Suspension, Extended Release Every 4 Weeks 05/11 Invega Sustenna - 156MG INTRAMUSCULAR Suspension, Extended Release [id number] Inject one hundred fifty six (156) mg Suspension, Extended Release Every 4 Weeks Invega - 3MG ORAL Tablet, Extended Release [id number] Take one (1) tablet, extended release Once a Day, As Necessary. Invega Sustenna - 234MG INTRAMUSCULAR Suspension, Extended Release [id number] Inject two hundred thirty four (234) mg Suspension, Extended Release Every 4 Weeks lamoTRIgine - 25MG ORAL Tablet [id number] Take one (1) Tablet Twice a Day Lab Results Date Name [facility] Ref Range Value Normalcy Glucose [facility] 2345-7 65-99 132 mg/dL Above high normal BUN [facility] 3094-0 7-25 16 mg/dL Normal (applies to non-numeric results) Creat [facility] 2160-0 0.60-1.35 0.87 mg/dL Normal (applies to non-numeric results) GFR/BSA.pred SerPl MDRD-vRate 49611-6 > OR=60 119 mL/min/1.73m2 Normal (applies to non-numeric results) GFR/BSA pred.black SerPl MDRD-vRate 27171-9 > OR=60 138 mL/min/1.73m2 Normal (applies to non- numeric results) BUN/Creat SerPl 3097-3 6-22 (calc) Sodium SerPl-sCnc 2951-2 135-146 140 mmol/L Normal (applies to non-numeric results) Potassium SerPl-sCnc 2823-3 3.5-5.3 4.0 mmol/L Normal (applies to non-numeric results) Chloride SerPl-sCnc 2075-0 98-110 104 mmol/L Normal (applies to non-numeric results) CO2 SerPl-sCnc 2028-9 19-30 25 mmol/L Normal (applies to non-numeric results) Calcium SerPl-mCnc 63782-4 8.6-10.3 10.4 mg/dL Above high normal WBC [...] to non-numeric results) Neuts Band # Bld 40399-8 0-750 cells/uL Normal (applies to non-numeric results) Metamyelocytes # Bld 08559-8 0 cells/uL Normal (applies to non-numeric results) Myelocytes # Bld 96247-1 0 cells/uL Normal (applies to non-numeric results) Promyelocytes # Bld 96332-5 0 cells/uL Normal (applies to non-numeric results) Lymphocytes # Bld Auto 731-0 850-3900 1997 cells/uL Normal (applies to non-numeric results) Monocytes # Bld Auto 742-7 200-950 503 cells/uL Normal (applies to non-numeric results) Eosinophil # Bld Auto 711-2 15-500 60 cells/uL Normal (applies to non-numeric results) Basophils # Bld Auto 704-7 0-200 27 cells/uL Normal (applies to non-numeric results) Blasts # Bld 78244-1 0 cells/uL Normal (applies to non-numeric results) nRBC # Bld 89417-5 0 cells/ uL Normal (applies to non-numeric [...] to non-numeric results) Atypical Lymphs Fr Bld 55928-8 0-10 % Normal (applies to non-numeric results) Monocytes NFr Bld Auto 5905-5 7.5 % Normal (applies to non-numeric results) Eosinophil NFr Bld Auto 713-8 0.9 % Normal (applies to non-numeric results) Basophils NFr Bld Auto 706-2 0.4 % Normal (applies to non-numeric results) Blasts NFr Bld Manual 709-6 % Normal (applies to non-numeric results) nRBC/100 WBC Bld-Rto 19878-8 0 /100 WBC Normal (applies to non-numeric results) Service Cmnt XXX-Imp 8251-1 Normal (applies to non-numeric results) Val[facility]ate [facility] 4086-5 50.0- 100.0 <12.5 mg/L Below low normal Encounters Date Time Service Code Provider 08:00:00 am BLANCHE GREGORY 01:41:00 pm AMPAROADELAIDA THORNEXTON Family History Functional Status NA Immunizations NA Vital Signs Date Time BP Pulse Temp Height Weight BMI 10:56:00 am 133 over 84 80 bpm 210.0 lbs 02:15:00 pm 110 over 80 226 lbs 02:40:00 pm 130 over 100 232 lbs 02:10:00 pm over 75 in 229 lbs 28.6 kg/m^2 01:50:00 pm 130 over 90 238 lbs 03:10:00 pm 124 over 90 239 lbs 02:23:00 pm 128 over 108 242.2 lbs 11:30:00 am over 75 in 242 lbs 30.2 kg/m^2 01:40:00 pm 126 over 86 242 lbs 02:02:00 pm over 75 in 207 [...] over 75 in 226 lbs 28.2 kg/m^2 Social History NA Hospital Discharge Instructions NA Hospital Discharge medications Date Medication Dose, Form, Route, Freq Code Insulin-HumaLOG Instructions * Not Applicable Procedures NA Purpose Electronic Copy
--- OUTSIDE RECORDS SUMMARY | 2018-06-19 07:55 | XMS REPORT | Continuity of Care Document ---
Author Author Auto Generated Organization Unknown Address [address] [address] Allergies and Adverse Reactions Allergen/Reactant Reaction Reaction Severity Status morphine N/A N/A N/A Vicodin N/A N/A N/A Encounters Encounter Performer Location Date ADULT PROGRAM [facility] 05/25/2008 [facility] AMPARO FERREIRA [facility] 03/04/2014 Medications Medication Instructions Start Date Status [...] applies to non-numeric results) 05/27/2014 06:45 AM 772-130 1704 MPV DNRfL Normal (applies to non-numeric results) 05/27/2014 06:45 AM 7.5-11.5 6399 ABSOLUTE NEUTROPHILS 4114cells/uL Normal ( applies to non-numeric results) 05/27/2014 06:45 AM 3484-0954 6399 ABSOLUTE BAND NEUTROPHILS DNRcells/uL Normal (applies [...] applies to non-numeric results) 05/27/2014 06:45 AM 800-419 0985 ABSOLUTE EOSINOPHILS 60cells/uL Normal ( applies to [...] to non- numeric results) 05/27/2014 06:45 AM 74315 GLUCOSE 132mg/dL Above high normal 05/27/2014 06:45 AM 65-99 22431 UREA NITROGEN (BUN) 16mg/dL Normal ( applies to non-numeric results) 05/27/2014 06:45 AM 7-25 31486 CREATININE 0.87mg/dL Normal (applies to non -numeric results) 05/27/2014 06:45 AM 0.60-1.35 27533 eGFR NON-AFR. SUDANESE 119mL/min/1.73m2 Normal (applies to non-numeric results) 05/27/2014 06:45 AM 22728 eGFR 138mL/min/1.73m2 Normal (applies to non-numeric results) 05/27/2014 06:45 AM 23538 BUN/CREATININE RATIO NOT APPLICABLE(calc) Unknown 05/27/2014 06:45 AM 6-22 38719 SODIUM 140mmol/L Normal (applies to non- numeric results) 05/27/2014 06:45 AM 135-146 13447 POTASSIUM 4.0mmol/L Normal (applies to non- numeric results) 05/27/2014 06:45 AM 3.5-5.3 19550 CHLORIDE 104mmol/L Normal (applies to non- numeric results) 05/27/2014 06:45 AM 98-110 47592 CARBON DIOXIDE 25mmol/L Normal (applies to non-numeric results) 05/27/2014 06:45 AM 19-30 26991 CALCIUM 10.4mg/dL Above high normal 05/27/2014 06:45 [...]
--- OUTSIDE RECORDS SUMMARY | 2018-06-19 07:55 | XMS REPORT ---
Author Author AMPARO FERREIRA Organization Unknown Address [address] [place] [address] Care Team Providers Care Filling Technician Name Role Phone HANNA AMPARO Unavailable BUFFY [...] a car Look for employment opportunities using [employer], newspapers, employment papers and utilizing the [facility] [employer]. Refer client to a vocational counselor [...] as indicated by providing the following services: 23376 interactive complexity 79009 psychiatric diagnostic eval w/ meds 01414 30 min psychotherapy add-on 15849 45 [place] [address] 60 min psychotherapy add-on 12218 med injection 22593 New Patient E&M (level 1) 65210 New Patient E&M (level 2) 42689 New Patient E&M (level 3) 27961 New patient E&M (level 4) 40626 New Patient E&M (level 5) 72789 Established Patient E&M (level 1) 29990 Established Patient E&M (level 2) 50249 Established Patient E&M (level 3) 88357 Established Patient E& amp;M (level 4) 66471 Established Patient E&M (level 5) 9935x prolonged service code 33039 case conference w/o clt & fam w/ [place] 24539 case conference w/o clt w / MD [...] a car Look for employment opportunities using [employer], newspapers, employment papers and utilizing the [facility] [employer] [place]. Refer client to a vocational counselor for [...] Case Conference with multidisciplinary members of the [facility] [place] as indicated, and/or Collaboration and coordination with outside medical providers as indicated by providing the following services: 20967 interactive complexity 75988 psychiatric diagnostic eval w/ meds 04510 30 min psychotherapy add-on 71874 45 [place] [address] 60 min psychotherapy add-on 50125 med injection 59168 New Patient E&M (level 1) 33559 New Patient E&M (level 2) 56794 New Patient E&M (level 3) 43270 New patient E&M (level 4) 14022 New Patient E&M (level 5) 13544 Established Patient E&M (level 1) 84880 Established Patient E&M (level 2) 18769 Established Patient E&M (level 3) 35024 Established Patient E& amp;M (level 4) 39424 Established Patient E&M (level 5) 9935x prolonged service code 95280 case conference w/o clt & fam w/ [place] [address] case conference w/o clt w / MD To decrease incidence of depression, suicidal feelings/thoughts, mood instability and emotional lability so that I can feel normal CM will use recovery tools such as (Why I take Medications, Overcoming Fears About Medications and Exploring My Beliefs About Medication) and Therapeutic interventions (CBT, Open ended, solution focused and NH) to assist client with his [place] goal/recovery. I want to get job to have more money so that I can save to buy a car Look for employment opportunities using [employer], newspapers, employment papers and utilizing the [facility] [employer]. Refer client to a vocational counselor for [...] as indicated by providing the following services: 82258 interactive complexity 87692 psychiatric diagnostic eval w/ meds 08787 30 min psychotherapy add-on 46613 45 [place] [address] 60 min psychotherapy add-on 16794 med injection 70541 New Patient E&M (level 1) 02409 New Patient E&M (level 2) 05237 New Patient E&M (level 3) 40687 New patient E&M (level 4) 60030 New Patient E&M (level 5) 21380 Established Patient E&M (level 1) 31275 Established Patient E&M (level 2) 18844 Established Patient E&M (level 3) 77222 Established Patient E& amp;M (level 4) 60342 Established Patient E&M (level 5) 9935x prolonged service code 20522 case conference w/o clt & fam [place]/ [place] [address] case conference w/o clt w / MD To decrease incidence of depression, suicidal feelings/thoughts, mood instability and emotional lability so that I can feel normal CM will use recovery tools such as (Why I take Medications, Overcoming Fears About Medications and Exploring My Beliefs About Medication) and Therapeutic interventions (CBT, Open ended, solution focused and NH) to assist client with his [place] goal/recovery. I want to get job to have more money so that I can save to buy a car Look for employment opportunities using [employer], newspapers, employment papers and utilizing the [facility] [employer]. Refer client to a vocational counselor for [...] Case Conference with multidisciplinary members of the [facility] [place] as indicated, and/or Collaboration and coordination with outside medical providers as indicated by providing the following services: 17427 interactive complexity 49553 psychiatric diagnostic eval w/ meds 26773 30 min psychotherapy add-on 05085 45 [place] [address] 60 min psychotherapy add-on 12059 med injection 49254 New Patient E&M (level 1) 33591 New Patient E&M (level 2) 14827 New Patient E&M (level 3) 72465 New patient E&M (level 4) 68568 New Patient E&M (level 5) 19619 Established Patient E&M (level 1) 48229 Established Patient E&M (level 2) 77557 Established Patient E&M (level 3) 05074 Established Patient E& amp;M (level 4) 05305 Established Patient E&M (level 5) 9935x prolonged service code 76308 case conference w/o clt & [place] w/ [place] [address] case conference w/o clt w / MD I want to eventually get and have kids CM will use recovery tools such as (Why I take Medications, Overcoming Fears About Medications and Exploring My Beliefs About Medication) and Therapeutic interventions (CBT, Open ended, solution focused and NH) to assist client with his [place] goal/recovery. To decrease incidence of depression, suicidal feelings/thoughts, mood instability and emotional lability so that I can feel normal CM will use recovery tools such as (Why I take Medications, Overcoming Fears About Medications and Exploring My Beliefs About Medication) and Therapeutic interventions (CBT, Open ended, solution focused and NH) to assist client with his [place] goal/recovery. I want to eventually get and have kids CM will use recovery tools such as (Why I take Medications, Overcoming Fears About Medications and Exploring My Beliefs About Medication) and Therapeutic interventions (CBT, Open ended, solution focused and NH) to assist client with his [place] goal/recovery. I want to get job to have more money so that I can save to buy a car Look for employment opportunities using public library, newspapers, employment papers and utilizing the [facility] [employer]. Refer client to a vocational counselor for [...] as indicated by providing the following services: 51512 interactive complexity 78970 psychiatric diagnostic eval w/ meds 90098 30 min psychotherapy add-on 74810 45 [place] [address] 60 min psychotherapy add-on 69065 med injection 00406 New Patient E&M (level 1) 51135 New Patient E&M (level 2) 73129 New Patient E&M (level 3) 01562 New patient E&M (level 4) 69762 New Patient E&M (level 5) 40484 Established Patient E&M (level 1) 12326 Established Patient E&M (level 2) 64603 Established Patient E&M (level 3) 38650 Established Patient E& amp;M (level 4) 11721 Established Patient E&M (level 5) 9935x prolonged service code 45939 case conference w/o clt & fam w/ 24882 case conference w/o clt w / I want to eventually get and have kids CM will use recovery tools and therapeutic interventions to support client recovery I want to get job to have more money so that I can save to buy a car Look for employment opportunities using [employer], newspapers, employment papers and utilizing the [facility] [employer]. Refer client to a vocational counselor for [...] as indicated by providing the following services: 86530 interactive complexity 72716 psychiatric diagnostic eval w/ meds 84914 30 min psychotherapy add-on 64531 45 [place] [address] 60 min psychotherapy add-on 13875 med injection 75781 New Patient E&M (level 1) 36444 New Patient E&M (level 2) 84579 New Patient E&M (level 3) 93020 New patient E&M (level 4) 37486 New Patient E&M (level 5) 42633 Established Patient E&M (level 1) 66276 Established Patient E&M (level 2) 44401 Established Patient E&M (level 3) 19701 Established Patient E& amp;M (level 4) 43847 Established Patient E&M (level 5) 9935x prolonged service code 04978 case conference w/o clt & fam w/ 57632 case conference w/o clt w / I [...] Case Conference with multidisciplinary members of the [facility] [place] as indicated, and/or Collaboration and coordination with outside medical providers as indicated by providing the following services: 07537 interactive complexity 47860 psychiatric diagnostic eval w/ meds 87532 30 min psychotherapy add-on 19805 45 [place] [address] 60 min psychotherapy add-on 79696 med injection 79525 New Patient E&M (level 1) 31799 New Patient E&M (level 2) 62224 New Patient E&M (level 3) 95024 New patient E&M (level 4) 12797 New Patient E&M (level 5) 55309 Established Patient E&M (level 1) 28446 Established Patient E&M (level 2) 61856 Established Patient E&M (level 3) 99730 Established Patient E& amp;M (level 4) 58600 Established Patient E&M (level 5) 9935x prolonged service code 24159 case conference w/o jose carlos & bibiana w/ 06923 case conference w/o jose carlos w / [...] Case Conference with multidisciplinary members of the [facility] [place] as indicated, and/or Collaboration and coordination with outside medical providers as indicated by providing the following services: 85632 interactive complexity 76549 psychiatric diagnostic eval w/ meds 29554 30 min psychotherapy add-on 16865 45 [place] [address] 60 min psychotherapy add-on 27167 med injection 13171 New Patient E&M (level 1) 61268 New Patient E&M (level 2) 96582 New Patient E&M (level 3) 81628 New patient E&M (level 4) 49517 New Patient E&M (level 5) 32210 Established Patient E&M (level 1) 07813 Established Patient E&M (level 2) 66727 Established Patient E&M (level 3) 99726 Established Patient E& amp;M (level 4) 61754 Established Patient E&M (level 5) 9935x prolonged service code 08179 case conference w/o clt & [place]/ [place] [address] case conference w/o clt w / Improve and maintain functioning through medical psychiatric services. Initial Psychiatric Evaluation, Ongoing medication monitoring and management, Case Conference with multidisciplinary members of the [facility] team as indicated, and/or Collaboration and coordination with outside medical providers as indicated by providing the following services: 03037 interactive complexity 45337 psychiatric diagnostic eval w/ meds 97103 30 min psychotherapy add-on 74835 45 [place] [address] 60 min psychotherapy add-on 26340 med injection 40830 New Patient E&M (level 1) 25138 New Patient E&M (level 2) 67295 New Patient E&M (level 3) 60397 New patient E&M (level 4) 51897 New Patient E&M (level 5) 50155 Established Patient E&M (level 1) 91670 Established Patient E&M (level 2) 68927 Established Patient E&M (level 3) 82662 Established Patient E& amp;M (level 4) 25246 Established Patient E&M (level 5) 9935x prolonged service code 86858 case conference w/o clt & bibiana w/ 79353 case conference w/o clt w / [id number] Peer Support Individual H2017 Psychosocial Rehab Indiv Date Time Service Provider Location 10:00:00 am INDIVIDUAL APPOINTMENT [facility]ED [facility] [address] Medications Medication Code Dose,Form,Route,Freq Start Date End Date Insulin-HumaLOG Depakote ER - 500 mg ORAL tablet, extended release [id number] - 500 mg, ERT, PO (3)ea QHS Lexapro - 20 mg ORAL tablet [id number] - 20 mg, TAB, PO (1)ea QD Invega - 3 mg ORAL tablet, extended release [id number] - 3 mg, ERT, PO (1)ea PRN-QD Invega Sustenna - 156 mg/mL INTRAMUSCULAR suspension, extended release [id number] - 156 mg/mL, ERSUS, IM (156)mg Q4W - 20MG, TAB, PO (1)ea QD - 3MG, TER, PO (1)ea PRN-QD - 500MG, TER, PO (3)ea QHS - 156MG, SER, IM (156)mg Q4W Invega Sustenna - 156MG INTRAMUSCULAR Suspension, Extended Release [id number] Inject one hundred fifty six (156) mg Suspension, Extended Release Every 4 Weeks Lexapro - 20MG ORAL Tablet [id number] Take one (1) tablet Daily. Invega - 3MG ORAL Tablet, Extended Release [id number] Take one (1) tablet, extended release Once a Day, As Necessary. Depakote ER - 500MG ORAL Tablet, Extended Release [id number] Take three (3) tablets, extended releases At Bedtime Invega Sustenna - 156MG INTRAMUSCULAR Suspension, Extended Release [id number] 156MG, SER, IM, Inject one hundred fifty six (156) mg Suspension, Extended Release Every 4 Weeks 05/11 Invega Sustenna - 156MG INTRAMUSCULAR Suspension, Extended Release [id number] Inject one hundred fifty six (156) mg Suspension, Extended Release Every 4 Weeks Invega - 3MG ORAL Tablet, Extended Release [id number] Take one (1) tablet, extended release Once a Day, As Necessary. Invega Sustenna - 234MG INTRAMUSCULAR Suspension, Extended Release [id number] Inject two hundred thirty four (234) mg Suspension, Extended Release Every 4 Weeks lamoTRIgine - 25MG ORAL Tablet [id number] Take one (1) Tablet Twice a Day Lab Results Date Name [facility] Ref Range Value Normalcy 65-99 132 mg/dL [...] 12.9 % 140-400 219 Thousand/uL 7.5-11.5 fL 9778-4878 4114 cells/uL 0-750 cells/uL 0 cells/uL 0 cells/uL 0 cells/uL 850-3900 1997 cells/uL 200-950 503 cells/uL 15-500 60 cells/uL 0-200 27 cells/uL 0 cells/uL 0 cells/uL 61.4 % % % % % 29.8 % 0-10 % 7.5 % 0.9 % 0.4 % % 0 /100 WBC 50.0-100.0 <12.5 mg/L Encounters Date Time Service Code Provider 08:00:00 am BLANCHE BRI 01:41:00 pm AMPARO HANNA Family History Functional Status NA Immunizations NA Vital Signs Date Time BP Pulse Temp Height Weight BMI 02:02:00 pm over 75 in 207 lbs 25.9 kg/m^2 02:40:00 pm 130 over 100 232 lbs 02:10:00 pm over 75 in 229 lbs 28.6 kg/m^2 01:50:00 pm 130 over 90 238 lbs 03:10:00 pm 124 over 90 239 lbs 02:23:00 pm 128 over 108 242.2 lbs 11:30:00 am over 75 in 242 lbs 30.2 kg/m^2 01:40:00 pm 126 over 86 242 lbs 11:18:00 am over 75 in 204.6 lbs [...] 02:15:00 pm 110 over 80 226 lbs Social History NA Hospital Discharge Instructions NA Hospital Discharge medications Date Medication Dose, Form, Route, Freq Code Insulin-HumaLOG Instructions * Not Applicable Procedures NA Purpose Electronic Copy
--- OUTSIDE RECORDS SUMMARY | 2018-06-19 07:56 | XMS REPORT | Continuity of Care Document ---
Author Author Auto Generated Organization Unknown Address [address] [address] Allergies and Adverse Reactions Allergen/Reactant Reaction Reaction Severity Status morphine N/A N/A N/A Vicodin N/A N/A N/A Encounters Encounter Performer Location Date ADULT PROGRAM [facility] 05/25/2008 [facility] AMPARO FERREIRA [facility] 03/04/2014 Medications Medication Instructions Start Date [...] applies to non-numeric results) 05/27/2014 06:45 AM [phone] MPV DNRfL Normal (applies to non-numeric results) 05/27/2014 06:45 AM 7.5-11.5 6399 ABSOLUTE NEUTROPHILS 4114cells/uL Normal ( applies to non-numeric results) 05/27/2014 06:45 AM 1703-9433 6399 ABSOLUTE BAND NEUTROPHILS DNRcells/uL Normal (applies [...] applies to non-numeric results) 05/27/2014 06:45 AM 439-025 7866 ABSOLUTE EOSINOPHILS 60cells/uL Normal ( applies to [...] to non- numeric results) 05/27/2014 06:45 AM 90306 GLUCOSE 132mg/dL Above high normal 05/27/2014 06:45 AM 65-99 98080 UREA NITROGEN (BUN) 16mg/dL Normal ( applies to non-numeric results) 05/27/2014 06:45 AM 7-25 39850 CREATININE 0.87mg/dL Normal (applies to non -numeric results) 05/27/2014 06:45 AM 0.60-1.35 52907 eGFR NON-AFR. [place] 119mL/min/1.73m2 Normal (applies to non-numeric results) 05/27/2014 06:45 AM 67843 eGFR 138mL/min/1.73m2 Normal (applies to non-numeric results) 05/27/2014 06:45 AM 16629 BUN/CREATININE RATIO NOT APPLICABLE(calc) Unknown 05/27/2014 06:45 AM 6-22 00064 SODIUM 140mmol/L Normal (applies to non- numeric results) 05/27/2014 06:45 AM 135-146 49290 POTASSIUM 4.0mmol/L Normal (applies to non- numeric results) 05/27/2014 06:45 AM 3.5-5.3 00593 CHLORIDE 104mmol/L Normal (applies to non- numeric results) 05/27/2014 06:45 AM 98-110 22062 CARBON DIOXIDE 25mmol/L Normal (applies to non-numeric results) 05/27/2014 06:45 AM 19-30 53657 CALCIUM 10.4mg/dL Above high normal 05/27/2014 06:45 [...]
--- OUTSIDE RECORDS SUMMARY | 2018-06-19 07:56 | XMS REPORT | Continuity of Care Document ---
Author Author Auto Generated Organization Unknown Address [address] [address] Allergies and Adverse Reactions Allergen/Reactant Reaction Reaction Severity Status morphine N/A N/A N/A Vicodin N/A N/A N/A Encounters Encounter Performer Location Date ADULT MH PROGRAM [facility] 05/25/2008 [facility] AMPARO FERREIRA [facility] 03/04/2014 Medications Medication Instructions Start Date Status Depakote ER - 500 mg, ERT, PO (3)ea QHS 05/19/2014 Active Lexapro - 20 mg, TAB, PO (1)ea QD 05/19/2014 Active Invega - 3 mg, ERT, PO (1)ea PRN-QD 05/19/2014 Active Invega Sustenna - 156 mg/mL, ERSUS, IM (156)mg Q4W 2013 Active Lexapro - 20MG, TAB, PO (1)ea QD Needs to scheudle an appt 08/15/2014 Active Invega - 3MG, TER, PO (1)ea PRN-QD Needs to schedule an appt 08/15/2014 Active Depakote ER - 500MG, TER, PO (3)ea QHS Needs to schedule an appt 08/15/2014 Active Invega Sustenna - 156MG, SER, IM (156)mg Q4W Needs to scheduel an appt 08/15/2014 Active Diagnostic Results Service ID Test Result [...] applies to non-numeric results) 05/27/2014 06:45 AM [phone] MPV DNRfL Normal (applies to non-numeric results) 05/27/2014 06:45 AM 7.5-11.5 6399 ABSOLUTE NEUTROPHILS 4114cells/uL Normal ( applies to non-numeric results) 05/27/2014 06:45 AM 4965-2683 6399 ABSOLUTE BAND NEUTROPHILS DNRcells/uL Normal (applies [...] applies to non-numeric results) 05/27/2014 06:45 AM 771-545 9365 ABSOLUTE EOSINOPHILS 60cells/uL Normal ( applies to [...] to non- numeric results) 05/27/2014 06:45 AM 91197 GLUCOSE 132mg/dL Above high normal 05/27/2014 06:45 AM 65-99 57260 UREA NITROGEN (BUN) 16mg/dL Normal ( applies to non-numeric results) 05/27/2014 06:45 AM 7-25 94665 CREATININE 0.87mg/dL Normal (applies to non -numeric results) 05/27/2014 06:45 AM 0.60-1.35 46828 eGFR NON-AFR. ISRAELI 119mL/min/1.73m2 Normal (applies to non-numeric results) 05/27/2014 06:45 AM 98839 eGFR 138mL/min/1.73m2 Normal (applies to non-numeric results) 05/27/2014 06:45 AM 12726 BUN/CREATININE RATIO NOT APPLICABLE(calc) Unknown 05/27/2014 06:45 AM 6-22 72394 SODIUM 140mmol/L Normal (applies to non- numeric results) 05/27/2014 06:45 AM 135-146 56007 POTASSIUM 4.0mmol/L Normal (applies to non- numeric results) 05/27/2014 06:45 AM 3.5-5.3 74272 CHLORIDE 104mmol/L Normal (applies to non- numeric results) 05/27/2014 06:45 AM 98-110 49716 CARBON DIOXIDE 25mmol/L Normal (applies to non-numeric results) 05/27/2014 06:45 AM 19-30 18755 CALCIUM 10.4mg/dL Above high normal 05/27/2014 06:45 [...]
--- OUTSIDE RECORDS SUMMARY | 2018-06-19 07:56 | XMS REPORT | Continuity of Care Document ---
Author Author Auto Generated Organization Unknown Address [address] [address] Allergies and Adverse Reactions Allergen/Reactant Reaction Reaction Severity Status morphine N/A N/A N/A Vicodin N/A N/A N/A Encounters Encounter Performer Location Date ADULT PROGRAM [facility] 05/25/2008 [facility] AMPARO FERREIRA [facility] 03/04/2014 Medications Medication Instructions Start Date [...] applies to non-numeric results) 05/27/2014 06:45 AM 070-108 8375 MPV DNRfL Normal (applies to non-numeric results) 05/27/2014 06:45 AM 7.5-11.5 6399 ABSOLUTE NEUTROPHILS 4114cells/uL Normal ( applies to non-numeric results) 05/27/2014 06:45 AM 7460-3801 6399 ABSOLUTE BAND NEUTROPHILS DNRcells/uL Normal (applies [...] applies to non-numeric results) 05/27/2014 06:45 AM 880-121 2435 ABSOLUTE EOSINOPHILS 60cells/uL Normal ( applies to [...] to non- numeric results) 05/27/2014 06:45 AM 49159 GLUCOSE 132mg/dL Above high normal 05/27/2014 06:45 AM 65-99 59290 UREA NITROGEN (BUN) 16mg/dL Normal ( applies to non-numeric results) 05/27/2014 06:45 AM 7-25 78843 CREATININE 0.87mg/dL Normal (applies to non -numeric results) 05/27/2014 06:45 AM 0.60-1.35 78120 eGFR NON-AFR. MAL[place] 119mL/min/1.73m2 Normal (applies to non-numeric results) 05/27/2014 06:45 AM 12993 eGFR 138mL/min/1.73m2 Normal (applies to non-numeric results) 05/27/2014 06:45 AM 53107 BUN/CREATININE RATIO NOT APPLICABLE(calc) Unknown 05/27/2014 06:45 AM 6-22 72607 SODIUM 140mmol/L Normal (applies to non- numeric results) 05/27/2014 06:45 AM 135-146 79956 POTASSIUM 4.0mmol/L Normal (applies to non- numeric results) 05/27/2014 06:45 AM 3.5-5.3 77939 CHLORIDE 104mmol/L Normal (applies to non- numeric results) 05/27/2014 06:45 AM 98-110 73449 CARBON DIOXIDE 25mmol/L Normal (applies to non-numeric results) 05/27/2014 06:45 AM 19-30 97201 CALCIUM 10.4mg/dL Above high normal 05/27/2014 06:45 [...]
--- OUTSIDE RECORDS SUMMARY | 2018-06-19 07:56 | XMS REPORT | Continuity of Care Document ---
Author Author Auto Generated Organization Unknown Address [address] [address] Allergies and Adverse Reactions Allergen/Reactant Reaction Reaction Severity Status morphine N/A N/A N/A Vicodin N/A N/A N/A Encounters Encounter Performer Location Date ADULT MH PROGRAM [facility] 05/25/2008 [facility] AMPARO FERREIRA [facility] 03/04/2014 Medications Medication Instructions Start Date Status [...] applies to non-numeric results) 05/27/2014 06:45 AM [phone] MPV DNRfL Normal (applies to non-numeric results) 05/27/2014 06:45 AM 7.5-11.5 6399 ABSOLUTE NEUTROPHILS 4114cells/uL Normal ( applies to non-numeric results) 05/27/2014 06:45 AM 3524-9784 6399 ABSOLUTE BAND NEUTROPHILS DNRcells/uL Normal (applies [...] applies to non-numeric results) 05/27/2014 06:45 AM 765-959 0379 ABSOLUTE EOSINOPHILS 60cells/uL Normal ( applies to [...] to non- numeric results) 05/27/2014 06:45 AM 60909 GLUCOSE 132mg/dL Above high normal 05/27/2014 06:45 AM 65-99 43096 UREA NITROGEN (BUN) 16mg/dL Normal ( applies to non-numeric results) 05/27/2014 06:45 AM 7-25 17121 CREATININE 0.87mg/dL Normal (applies to non -numeric results) 05/27/2014 06:45 AM 0.60-1.35 95740 eGFR NON-AFR. BRITISH 119mL/min/1.73m2 Normal (applies to non-numeric results) 05/27/2014 06:45 AM 99889 eGFR 138mL/min/1.73m2 Normal (applies to non-numeric results) 05/27/2014 06:45 AM 09493 BUN/CREATININE RATIO NOT APPLICABLE(calc) Unknown 05/27/2014 06:45 AM 6-22 42994 SODIUM 140mmol/L Normal (applies to non- numeric results) 05/27/2014 06:45 AM 135-146 90985 POTASSIUM 4.0mmol/L Normal (applies to non- numeric results) 05/27/2014 06:45 AM 3.5-5.3 85102 CHLORIDE 104mmol/L Normal (applies to non- numeric results) 05/27/2014 06:45 AM 98-110 72264 CARBON DIOXIDE 25mmol/L Normal (applies to non-numeric results) 05/27/2014 06:45 AM 19-30 77785 CALCIUM 10.4mg/dL Above high normal 05/27/2014 06:45 AM 8.6-10.3 Vital Signs Date/Time BP Pulse BMI Temp Height Weight Pain 09/19/2014 02:15PM 110/80 mmHg 226 lbs 05/26/2014 02:40PM 130/100 mmHg 232 lbs 05/19/2014 02:10PM 28.6 6' 3" 229 lbs 05/03/2014 01:50PM 130/90 mmHg 238 lbs 04/07/2014 03:10PM 124/90 mmHg 239 lbs 02/28/2014 02:23PM 128/108 mmHg 242.2 lbs 01/20/2014 11:30AM 30.2 6' 3" 242 lbs 01/13/2014 01:40PM 126/86 mmHg 242 lbs
--- OUTSIDE RECORDS SUMMARY | 2018-06-19 07:56 | XMS REPORT | Continuity of Care Document ---
Author Author Auto Generated Organization Unknown Address [address] [address] Allergies and Adverse Reactions Allergen/Reactant Reaction Reaction Severity Status morphine N/A N/A N/A Vicodin N/A N/A N/A Encounters Encounter Performer Location Date ADULT PROGRAM [facility] 05/25/2008 [facility]ERRE[facility] 03/04/2014 Medications Medication Instructions Start [...] applies to non-numeric results) 05/27/2014 06:45 AM [phone] MPV DNRfL Normal (applies to non-numeric results) 05/27/2014 06:45 AM 7.5-11.5 6399 ABSOLUTE NEUTROPHILS 4114cells/uL Normal ( applies to non-numeric results) 05/27/2014 06:45 AM 1833-1506 6399 ABSOLUTE BAND NEUTROPHILS DNRcells/uL Normal (applies [...] applies to non-numeric results) 05/27/2014 06:45 AM 849-696 2764 ABSOLUTE EOSINOPHILS 60cells/uL Normal ( applies to [...] to non- numeric results) 05/27/2014 06:45 AM 78463 GLUCOSE 132mg/dL Above high normal 05/27/2014 06:45 AM 65-99 75178 UREA NITROGEN (BUN) 16mg/dL Normal ( applies to non-numeric results) 05/27/2014 06:45 AM 7-25 91539 CREATININE 0.87mg/dL Normal (applies to non -numeric results) 05/27/2014 06:45 AM 0.60-1.35 49881 eGFR NON-AFR. [place] 119mL/min/1.73m2 Normal (applies to non-numeric results) 05/27/2014 06:45 AM 10820 eGFR 138mL/min/1.73m2 Normal (applies to non-numeric results) 05/27/2014 06:45 AM 47342 BUN/CREATININE RATIO NOT APPLICABLE(calc) Unknown 05/27/2014 06:45 AM 6-22 46264 SODIUM 140mmol/L Normal (applies to non- numeric results) 05/27/2014 06:45 AM 135-146 10520 POTASSIUM 4.0mmol/L Normal (applies to non- numeric results) 05/27/2014 06:45 AM 3.5-5.3 58539 CHLORIDE 104mmol/L Normal (applies to non- numeric results) 05/27/2014 06:45 AM 98-110 94318 CARBON DIOXIDE 25mmol/L Normal (applies to non-numeric results) 05/27/2014 06:45 AM 19-30 14524 CALCIUM 10.4mg/dL Above high normal 05/27/2014 06:45 [...]
--- OUTSIDE RECORDS SUMMARY | 2018-06-19 07:56 | XMS REPORT | Continuity of Care Document ---
Author Author Auto Generated Organization Unknown Address [address] [address] Allergies and Adverse Reactions Allergen/Reactant Reaction Reaction Severity Status morphine N/A N/A N/A Vicodin N/A N/A N/A Encounters Encounter Performer Location Date ADULT PROGRAM [facility] 05/25/2008 [facility]ERRE[facility] 03/04/2014 Medications Medication Instructions Start Date [...] applies to non-numeric results) 05/27/2014 06:45 AM [phone] MPV DNRfL Normal (applies to non-numeric results) 05/27/2014 06:45 AM 7.5-11.5 6399 ABSOLUTE NEUTROPHILS 4114cells/uL Normal ( applies to non-numeric results) 05/27/2014 06:45 AM 1217-9239 6399 ABSOLUTE BAND NEUTROPHILS DNRcells/uL Normal (applies [...] applies to non-numeric results) 05/27/2014 06:45 AM 367-064 6310 ABSOLUTE EOSINOPHILS 60cells/uL Normal ( applies to [...] to non- numeric results) 05/27/2014 06:45 AM 38523 GLUCOSE 132mg/dL Above high normal 05/27/2014 06:45 AM 65-99 26654 UREA NITROGEN (BUN) 16mg/dL Normal ( applies to non-numeric results) 05/27/2014 06:45 AM 7-25 97507 CREATININE 0.87mg/dL Normal (applies to non -numeric results) 05/27/2014 06:45 AM 0.60-1.35 36064 eGFR NON-AFR. PANAMANIAN 119mL/min/1.73m2 Normal (applies to non-numeric results) 05/27/2014 06:45 AM 59632 eGFR 138mL/min/1.73m2 Normal (applies to non-numeric results) 05/27/2014 06:45 AM 97683 BUN/CREATININE RATIO NOT APPLICABLE(calc) Unknown 05/27/2014 06:45 AM 6-22 12715 SODIUM 140mmol/L Normal (applies to non- numeric results) 05/27/2014 06:45 AM 135-146 07796 POTASSIUM 4.0mmol/L Normal (applies to non- numeric results) 05/27/2014 06:45 AM 3.5-5.3 35932 CHLORIDE 104mmol/L Normal (applies to non- numeric results) 05/27/2014 06:45 AM 98-110 04444 CARBON DIOXIDE 25mmol/L Normal (applies to non-numeric results) 05/27/2014 06:45 AM 19-30 50040 CALCIUM 10.4mg/dL Above high normal 05/27/2014 06:45 [...]
--- OUTSIDE RECORDS SUMMARY | 2018-06-19 07:57 | XMS REPORT | Continuity of Care Document ---
Author Author Auto Generated Organization Unknown Address [address] [address] Allergies and Adverse Reactions Allergen/Reactant Reaction Reaction Severity Status morphine N/A N/A N/A Vicodin N/A N/A N/A Encounters Encounter Performer Location Date ADULT PROGRAM [facility] 05/25/2008 [facility] F[facility]REIR[facility] 03/04/2014 Medications Medication Instructions Start Date Status [...] applies to non-numeric results) 05/27/2014 06:45 AM [phone] MPV DNRfL Normal (applies to non-numeric results) 05/27/2014 06:45 AM 7.5-11.5 6399 ABSOLUTE NEUTROPHILS 4114cells/uL Normal ( applies to non-numeric results) 05/27/2014 06:45 AM 0814-6221 6399 ABSOLUTE BAND NEUTROPHILS DNRcells/uL Normal (applies [...] applies to non-numeric results) 05/27/2014 06:45 AM 919-773 9107 ABSOLUTE EOSINOPHILS 60cells/uL Normal ( applies to [...] to non- numeric results) 05/27/2014 06:45 AM 97187 GLUCOSE 132mg/dL Above high normal 05/27/2014 06:45 AM 65-99 82523 UREA NITROGEN (BUN) 16mg/dL Normal ( applies to non-numeric results) 05/27/2014 06:45 AM 7-25 61081 CREATININE 0.87mg/dL Normal (applies to non -numeric results) 05/27/2014 06:45 AM 0.60-1.35 28836 eGFR NON-AFR. CYPRIOT 119mL/min/1.73m2 Normal (applies to non-numeric results) 05/27/2014 06:45 AM 31433 eGFR 138mL/min/1.73m2 Normal (applies to non-numeric results) 05/27/2014 06:45 AM 51482 BUN/CREATININE RATIO NOT APPLICABLE(calc) Unknown 05/27/2014 06:45 AM 6-22 14539 SODIUM 140mmol/L Normal (applies to non- numeric results) 05/27/2014 06:45 AM 135-146 81977 POTASSIUM 4.0mmol/L Normal (applies to non- numeric results) 05/27/2014 06:45 AM 3.5-5.3 14873 CHLORIDE 104mmol/L Normal (applies to non- numeric results) 05/27/2014 06:45 AM 98-110 87459 CARBON DIOXIDE 25mmol/L Normal (applies to non-numeric results) 05/27/2014 06:45 AM 19-30 93588 CALCIUM 10.4mg/dL Above high normal 05/27/2014 06:45 [...]
--- OUTSIDE RECORDS SUMMARY | 2018-06-19 07:57 | XMS REPORT | Continuity of Care Document ---
Author Author Auto Generated Organization Unknown Address [address] [address] Allergies and Adverse Reactions Allergen/Reactant Reaction Reaction Severity Status morphine N/A N/A N/A Vicodin N/A N/A N/A Encounters Encounter Performer Location Date ADULT PROGRAM [facility] 05/25/2008 [facility] FERREIRA [facility] 03/04/2014 Medications Medication Instructions Start Date [...] applies to non-numeric results) 05/27/2014 06:45 AM [phone] MPV DNRfL Normal (applies to non-numeric results) 05/27/2014 06:45 AM 7.5-11.5 6399 ABSOLUTE NEUTROPHILS 4114cells/uL Normal ( applies to non-numeric results) 05/27/2014 06:45 AM 2739-9966 6399 ABSOLUTE BAND NEUTROPHILS DNRcells/uL Normal (applies [...] applies to non-numeric results) 05/27/2014 06:45 AM 048-081 6976 ABSOLUTE EOSINOPHILS 60cells/uL Normal ( applies to [...] to non- numeric results) 05/27/2014 06:45 AM 82953 GLUCOSE 132mg/dL Above high normal 05/27/2014 06:45 AM 65-99 87838 UREA NITROGEN (BUN) 16mg/dL Normal ( applies to non-numeric results) 05/27/2014 06:45 AM 7-25 40396 CREATININE 0.87mg/dL Normal (applies to non -numeric results) 05/27/2014 06:45 AM 0.60-1.35 29916 eGFR NON-AFR. GERMAN 119mL/min/1.73m2 Normal (applies to non-numeric results) 05/27/2014 06:45 AM 83018 eGFR 138mL/min/1.73m2 Normal (applies to non-numeric results) 05/27/2014 06:45 AM 82836 BUN/CREATININE RATIO NOT APPLICABLE(calc) Unknown 05/27/2014 06:45 AM 6-22 53162 SODIUM 140mmol/L Normal (applies to non- numeric results) 05/27/2014 06:45 AM 135-146 64593 POTASSIUM 4.0mmol/L Normal (applies to non- numeric results) 05/27/2014 06:45 AM 3.5-5.3 37514 CHLORIDE 104mmol/L Normal (applies to non- numeric results) 05/27/2014 06:45 AM 98-110 87751 CARBON DIOXIDE 25mmol/L Normal (applies to non-numeric results) 05/27/2014 06:45 AM 19-30 50494 CALCIUM 10.4mg/dL Above high normal 05/27/2014 06:45 [...]
--- OUTSIDE RECORDS SUMMARY | 2018-06-19 07:57 | XMS REPORT | Continuity of Care Document ---
Author Author Auto Generated Organization Unknown Address [address] [address] Allergies and Adverse Reactions Allergen/Reactant Reaction Reaction Severity Status morphine N/A N/A N/A Vicodin N/A N/A N/A Encounters Encounter Performer Location Date ADULT PROGRAM [facility] 05/25/2008 [facility] FERRE[facility] 03/04/2014 Medications Medication Instructions Start Date [...] applies to non-numeric results) 05/27/2014 06:45 AM [phone] MPV DNRfL Normal (applies to non-numeric results) 05/27/2014 06:45 AM 7.5-11.5 6399 ABSOLUTE NEUTROPHILS 4114cells/uL Normal ( applies to non-numeric results) 05/27/2014 06:45 AM 9597-2698 6399 ABSOLUTE BAND NEUTROPHILS DNRcells/uL Normal (applies [...] applies to non-numeric results) 05/27/2014 06:45 AM 510-366 8861 ABSOLUTE EOSINOPHILS 60cells/uL Normal ( applies to [...] to non- numeric results) 05/27/2014 06:45 AM 45262 GLUCOSE 132mg/dL Above high normal 05/27/2014 06:45 AM 65-99 55006 UREA NITROGEN (BUN) 16mg/dL Normal ( applies to non-numeric results) 05/27/2014 06:45 AM 7-25 91257 CREATININE 0.87mg/dL Normal (applies to non -numeric results) 05/27/2014 06:45 AM 0.60-1.35 70218 eGFR NON-AFR. SAMMARINESE 119mL/min/1.73m2 Normal (applies to non-numeric results) 05/27/2014 06:45 AM 25942 eGFR 138mL/min/1.73m2 Normal (applies to non-numeric results) 05/27/2014 06:45 AM 60663 BUN/CREATININE RATIO NOT APPLICABLE(calc) Unknown 05/27/2014 06:45 AM 6-22 97379 SODIUM 140mmol/L Normal (applies to non- numeric results) 05/27/2014 06:45 AM 135-146 10912 POTASSIUM 4.0mmol/L Normal (applies to non- numeric results) 05/27/2014 06:45 AM 3.5-5.3 15886 CHLORIDE 104mmol/L Normal (applies to non- numeric results) 05/27/2014 06:45 AM 98-110 01005 CARBON DIOXIDE 25mmol/L Normal (applies to non-numeric results) 05/27/2014 06:45 AM 19-30 35452 CALCIUM 10.4mg/dL Above high normal 05/27/2014 06:45 [...]
--- OUTSIDE RECORDS SUMMARY | 2018-06-19 07:57 | XMS REPORT | Continuity of Care Document ---
Author Author Auto Generated Organization Unknown Address [address] [address] Allergies and Adverse Reactions Allergen/Reactant Reaction Reaction Severity Status morphine N/A N/A N/A Vicodin N/A N/A N/A Encounters Encounter Performer Location Date ADULT PROGRAM [facility] 05/25/2008 [facility] F[facility] 03/04/2014 Medications Medication Instructions Start [...] applies to non-numeric results) 05/27/2014 06:45 AM [phone] MPV DNRfL Normal (applies to non-numeric results) 05/27/2014 06:45 AM 7.5-11.5 6399 ABSOLUTE NEUTROPHILS 4114cells/uL Normal ( applies to non-numeric results) 05/27/2014 06:45 AM 0137-8508 6399 ABSOLUTE BAND NEUTROPHILS DNRcells/uL Normal (applies [...] applies to non-numeric results) 05/27/2014 06:45 AM 632-569 6550 ABSOLUTE EOSINOPHILS 60cells/uL Normal ( applies to [...] to non- numeric results) 05/27/2014 06:45 AM 51740 GLUCOSE 132mg/dL Above high normal 05/27/2014 06:45 AM 65-99 16082 UREA NITROGEN (BUN) 16mg/dL Normal ( applies to non-numeric results) 05/27/2014 06:45 AM 7-25 61727 CREATININE 0.87mg/dL Normal (applies to non -numeric results) 05/27/2014 06:45 AM 0.60-1.35 23895 eGFR NON-AFR. MACEDONIAN 119mL/min/1.73m2 Normal (applies to non-numeric results) 05/27/2014 06:45 AM 15723 eGFR 138mL/min/1.73m2 Normal (applies to non-numeric results) 05/27/2014 06:45 AM 69158 BUN/CREATININE RATIO NOT APPLICABLE(calc) Unknown 05/27/2014 06:45 AM 6-22 19046 SODIUM 140mmol/L Normal (applies to non- numeric results) 05/27/2014 06:45 AM 135-146 63293 POTASSIUM 4.0mmol/L Normal (applies to non- numeric results) 05/27/2014 06:45 AM 3.5-5.3 39282 CHLORIDE 104mmol/L Normal (applies to non- numeric results) 05/27/2014 06:45 AM 98-110 39954 CARBON DIOXIDE 25mmol/L Normal (applies to non-numeric results) 05/27/2014 06:45 AM 19-30 37671 CALCIUM 10.4mg/dL Above high normal 05/27/2014 06:45 [...]
--- OUTSIDE RECORDS SUMMARY | 2018-06-19 07:57 | XMS REPORT | Continuity of Care Document ---
Author Author Auto Generated Organization Unknown Address [address] [address] Allergies and Adverse Reactions Allergen/Reactant Reaction Reaction Severity Status morphine N/A N/A N/A Vicodin N/A N/A N/A Encounters Encounter Performer Location Date ADULT PROGRAM [facility] 05/25/2008 [facility] 03/04/2014 Medications Medication Instructions Start Date [...] applies to non-numeric results) 05/27/2014 06:45 AM [phone] MPV DNRfL Normal (applies to non-numeric results) 05/27/2014 06:45 AM 7.5-11.5 6399 ABSOLUTE NEUTROPHILS 4114cells/uL Normal ( applies to non-numeric results) 05/27/2014 06:45 AM 8944-8006 6399 ABSOLUTE BAND NEUTROPHILS DNRcells/uL Normal (applies [...] applies to non-numeric results) 05/27/2014 06:45 AM 725-608 3681 ABSOLUTE EOSINOPHILS 60cells/uL Normal ( applies to [...] to non- numeric results) 05/27/2014 06:45 AM 11780 GLUCOSE 132mg/dL Above high normal 05/27/2014 06:45 AM 65-99 86524 UREA NITROGEN (BUN) 16mg/dL Normal ( applies to non-numeric results) 05/27/2014 06:45 AM 7-25 26106 CREATININE 0.87mg/dL Normal (applies to non -numeric results) 05/27/2014 06:45 AM 0.60-1.35 50923 eGFR NON-AFR. KITT[place]IAN 119mL/min/1.73m2 Normal (applies to non-numeric results) 05/27/2014 06:45 AM 04712 eGFR 138mL/min/1.73m2 Normal (applies to non-numeric results) 05/27/2014 06:45 AM 75010 BUN/CREATININE RATIO NOT APPLICABLE(calc) Unknown 05/27/2014 06:45 AM 6-22 84782 SODIUM 140mmol/L Normal (applies to non- numeric results) 05/27/2014 06:45 AM 135-146 08147 POTASSIUM 4.0mmol/L Normal (applies to non- numeric results) 05/27/2014 06:45 AM 3.5-5.3 55506 CHLORIDE 104mmol/L Normal (applies to non- numeric results) 05/27/2014 06:45 AM 98-110 50933 CARBON DIOXIDE 25mmol/L Normal (applies to non-numeric results) 05/27/2014 06:45 AM 19-30 97886 CALCIUM 10.4mg/dL Above high normal 05/27/2014 06:45 [...]
--- OUTSIDE RECORDS SUMMARY | 2018-06-19 07:57 | XMS REPORT | Continuity of Care Document ---
Author Author Auto Generated Organization Unknown Address [address] [address] Allergies and Adverse Reactions Allergen/Reactant Reaction Reaction Severity Status morphine N/A N/A N/A Vicodin N/A N/A N/A Encounters Encounter Performer Location Date ADULT PROGRAM [facility] 05/25/2008 [facility] 03/04/2014 Medications Medication Instructions Start Date Status [...] applies to non-numeric results) 05/27/2014 06:45 AM [phone] MPV DNRfL Normal (applies to non-numeric results) 05/27/2014 06:45 AM 7.5-11.5 6399 ABSOLUTE NEUTROPHILS 4114cells/uL Normal ( applies to non-numeric results) 05/27/2014 06:45 AM 5496-7766 6399 ABSOLUTE BAND NEUTROPHILS DNRcells/uL Normal (applies [...] applies to non-numeric results) 05/27/2014 06:45 AM 447-343 1624 ABSOLUTE EOSINOPHILS 60cells/uL Normal ( applies to [...] to non- numeric results) 05/27/2014 06:45 AM 48311 GLUCOSE 132mg/dL Above high normal 05/27/2014 06:45 AM 65-99 69038 UREA NITROGEN (BUN) 16mg/dL Normal ( applies to non-numeric results) 05/27/2014 06:45 AM 7-25 75869 CREATININE 0.87mg/dL Normal (applies to non -numeric results) 05/27/2014 06:45 AM 0.60-1.35 71673 eGFR NON-AFR. HAITIAN 119mL/min/1.73m2 Normal (applies to non-numeric results) 05/27/2014 06:45 AM 43809 eGFR 138mL/min/1.73m2 Normal (applies to non-numeric results) 05/27/2014 06:45 AM 57892 BUN/CREATININE RATIO NOT APPLICABLE(calc) Unknown 05/27/2014 06:45 AM 6-22 93678 SODIUM 140mmol/L Normal (applies to non- numeric results) 05/27/2014 06:45 AM 135-146 54571 POTASSIUM 4.0mmol/L Normal (applies to non- numeric results) 05/27/2014 06:45 AM 3.5-5.3 15835 CHLORIDE 104mmol/L Normal (applies to non- numeric results) 05/27/2014 06:45 AM 98-110 51709 CARBON DIOXIDE 25mmol/L Normal (applies to non-numeric results) 05/27/2014 06:45 AM 19-30 50109 CALCIUM 10.4mg/dL Above high normal 05/27/2014 06:45 [...]
--- OUTSIDE RECORDS SUMMARY | 2018-06-19 07:57 | XMS REPORT | Continuity of Care Document ---
Author Author Auto Generated Organization Unknown Address [address] [address] Allergies and Adverse Reactions Allergen/Reactant Reaction Reaction Severity Status morphine N/A N/A N/A Vicodin N/A N/A N/A Encounters Encounter Performer Location Date ADULT PROGRAM [facility] 05/25/2008 [facility] 03/04/2014 Medications Medication Instructions Start Date Status [...] applies to non-numeric results) 05/27/2014 06:45 AM [phone] MPV DNRfL Normal (applies to non-numeric results) 05/27/2014 06:45 AM 7.5-11.5 6399 ABSOLUTE NEUTROPHILS 4114cells/uL Normal ( applies to non-numeric results) 05/27/2014 06:45 AM [phone] 6399 ABSOLUTE BAND NEUTROPHILS DNRcells/uL Normal (applies [...] applies to non-numeric results) 05/27/2014 06:45 AM 247-457 9456 ABSOLUTE EOSINOPHILS 60cells/uL Normal ( applies to [...] to non- numeric results) 05/27/2014 06:45 AM 55345 GLUCOSE 132mg/dL Above high normal 05/27/2014 06:45 AM 65-99 90556 UREA NITROGEN (BUN) 16mg/dL Normal ( applies to non-numeric results) 05/27/2014 06:45 AM 7-25 94986 CREATININE 0.87mg/dL Normal (applies to non -numeric results) 05/27/2014 06:45 AM 0.60-1.35 65973 eGFR NON-AFR. MONGOLIAN 119mL/min/1.73m2 Normal (applies to non-numeric results) 05/27/2014 06:45 AM 31970 eGFR 138mL/min/1.73m2 Normal (applies to non-numeric results) 05/27/2014 06:45 AM 20176 BUN/CREATININE RATIO NOT APPLICABLE(calc) Unknown 05/27/2014 06:45 AM 6-22 54936 SODIUM 140mmol/L Normal (applies to non- numeric results) 05/27/2014 06:45 AM 135-146 32166 POTASSIUM 4.0mmol/L Normal (applies to non- numeric results) 05/27/2014 06:45 AM 3.5-5.3 51768 CHLORIDE 104mmol/L Normal (applies to non- numeric results) 05/27/2014 06:45 AM 98-110 33670 CARBON DIOXIDE 25mmol/L Normal (applies to non-numeric results) 05/27/2014 06:45 AM 19-30 50147 CALCIUM 10.4mg/dL Above high normal 05/27/2014 06:45 [...]
--- OUTSIDE RECORDS SUMMARY | 2018-06-19 07:58 | XMS REPORT | Continuity of Care Document ---
Author Author [facility] Address Unknown Phone Unavailable Allergies There is no data. Medications There is no data. Problems There is no data. Procedures There is no data. Results There is no data. Encounters There is no data.
--- OUTSIDE RECORDS SUMMARY | 2018-06-19 07:58 | XMS REPORT | Continuity of Care Document ---
Author Author Auto Generated Organization Unknown Address [address] [address] Allergies and Adverse Reactions Allergen/Reactant Reaction Reaction [...] applies to non-numeric results) 05/27/2014 06:45 AM 603-050 1001 MPV DNRfL Normal (applies to non-numeric results) 05/27/2014 06:45 AM 7.5-11.5 6399 ABSOLUTE NEUTROPHILS 4114cells/uL Normal ( applies to non-numeric results) 05/27/2014 06:45 AM 6811-7576 6399 ABSOLUTE BAND NEUTROPHILS DNRcells/uL Normal (applies [...] applies to non-numeric results) 05/27/2014 06:45 AM 490-822 7672 ABSOLUTE EOSINOPHILS 60cells/uL Normal ( applies to [...] to non- numeric results) 05/27/2014 06:45 AM 94034 GLUCOSE 132mg/dL Above high normal 05/27/2014 06:45 AM 65-99 37729 UREA NITROGEN (BUN) 16mg/dL Normal ( applies to non-numeric results) 05/27/2014 06:45 AM 7-25 14229 CREATININE 0.87mg/dL Normal (applies to non -numeric results) 05/27/2014 06:45 AM 0.60-1.35 66299 eGFR NON-AFR. [place] 119mL/min/1.73m2 Normal (applies to non-numeric results) 05/27/2014 06:45 AM 28700 eGFR 138mL/min/1.73m2 Normal (applies to non-numeric results) 05/27/2014 06:45 AM 21804 BUN/CREATININE RATIO NOT APPLICABLE(calc) Unknown 05/27/2014 06:45 AM 6-22 62351 SODIUM 140mmol/L Normal (applies to non- numeric results) 05/27/2014 06:45 AM 135-146 77772 POTASSIUM 4.0mmol/L Normal (applies to non- numeric results) 05/27/2014 06:45 AM 3.5-5.3 09669 CHLORIDE 104mmol/L Normal (applies to non- numeric results) 05/27/2014 06:45 AM 98-110 65632 CARBON DIOXIDE 25mmol/L Normal (applies to non-numeric results) 05/27/2014 06:45 AM 19-30 47192 CALCIUM 10.4mg/dL Above high normal 05/27/2014 06:45 [...]
[2018-06-19] MEDS ORDERED: DULO30CA48 (08:26)
[2018-06-19] MEDS ORDERED: DIVA500T15 (08:26)
[2018-06-19] MEDS ORDERED: TBR.3OP51 (08:26)
[2018-06-19] MEDS ORDERED: INSU100I14 (08:26)
[2018-06-19] MEDS ORDERED: BUSP10TA95 (08:26)
[2018-06-19 08:32] LABS: BASOPHILS # (AUTO) 0.1 10^3/uL (0.0-0.1); BASOPHILS % (AUTO) 1 % (0-10); EOSINOPHILS # (AUTO) 0.3 10^3/uL (0.0-0.3); EOSINOPHILS % (AUTO) 3 % (0-10); HEMATOCRIT 43 % (40-54); HEMOGLOBIN 14.3 G/DL (13.3-17.7); LYMPHOCYTES # (AUTO) 3.5 X 10^3 (1.0-4.0); LYMPHOCYTES % (AUTO) 36 % (12-44); MEAN CORPUSCULAR HEMOGLOBIN 31 PG (25-34); MEAN CORPUSCULAR HGB CONC 34 G/DL (32-36); MEAN CORPUSCULAR VOLUME 92 FL (80-99); MEAN PLATELET VOLUME 9.3 FL (7.4-10.4); MONOCYTES # (AUTO) 0.9 X 10^3 (0.0-1.0); MONOCYTES % (AUTO) 10 % (0-12); NEUTROPHILS % (AUTO) 51 % (42-75); PLATELET COUNT 488 10^3/uL (130-400); RED BLOOD COUNT 4.62 10^6/uL (4.35-5.85); RED CELL DISTRIBUTION WIDTH 14.2 % (10.0-14.5); WHITE BLOOD COUNT 9.7 10^3/uL (4.3-11.0)
[2018-06-19] MEDS ORDERED: INSU100I29 (08:32)
[2018-06-19 08:53] LABS: ALANINE AMINOTRANSFERASE 11 U/L (0-55); ALBUMIN 4.2 GM/DL (3.2-4.5); ALKALINE PHOSPHATASE 82 U/L (40-136); BILIRUBIN,TOTAL 0.3 MG/DL (0.1-1.0); BUN/CREATININE RATIO 16; CALCIUM 9.8 MG/DL (8.5-10.1); CARBON DIOXIDE 24 MMOL/L (21-32); CHLORIDE 99 MMOL/L (98-107); CREATININE SERUM 1.05 MG/DL (0.60-1.30); GFR ESTIMATED > 60; SALICYLATE < 5.0 MG/DL (5.0-20.0); SODIUM 137 MMOL/L (135-145); TOTAL PROTEIN 7.3 GM/DL (6.4-8.2)
[2018-06-19 08:55] LABS: ACETAMINOPHEN < 10 UG/ML (10-30); GLUCOSE 463 MG/DL (70-105)
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
[2018-06-19] MEDS ORDERED: inSUlin DETERMIR 1 UNIT/0.01 ML (LEVEMIR) CHARGE PER UNIT SQ ONE (09:00)
[2018-06-19] MEDS ORDERED: inSUlin ASPART (NovoLOG) 1 UNIT/0.01 ML (CHARGE PER UNIT) SC ONE (09:00)
[2018-06-19 09:13] LABS: TSH (THYROID ANALYZER) 1.33 UIU/ML (0.35-4.94); VALPROIC ACID 44.1 UG/ML (50.0-100.0)
[2018-06-19] MEDS ORDERED: TETRACAINE 0.5% OPHTH SOLN 4 ML BTL (SINGLE DOSE ONLY) OU ONE (09:15)
[2018-06-19] MEDS ORDERED: BSS 15 ML IR ONE (09:15)
[2018-06-19] MEDS ORDERED: FLUORESCEIN (FLUOR-I-STRIPS) 1 MG STRP OU ONE (09:15)
[2018-06-19 09:23] LABS: BILIRUBIN,URINE NEGATIVE (NEGATIVE); CLARITY,URINE CLEAR; COLOR,URINE YELLOW; GLUCOSE, URINE (UA) 4+ (NEGATIVE); KETONES,URINE 3+ (NEGATIVE); LEUKOCYTE ESTERASE ,URINE NEGATIVE (NEGATIVE); NITRITE,URINE NEGATIVE (NEGATIVE); PH,URINE 5 (5-9); PROTEIN,URINE NEGATIVE (NEGATIVE); UROBILINOGEN,URINE NORMAL (NORMAL)
[2018-06-19 09:36] LABS: BACTERIA,URINE NEGATIVE /HPF
[2018-06-19 09:37] LABS: AMPHETAMINE SCREEN, URINE NEGATIVE (NEGATIVE); BARBITURATE SCREEN URINE NEGATIVE (NEGATIVE); BENZODIAZEPINES SCREEN URINE NEGATIVE (NEGATIVE); CANNABINOID SCREEN, URINE POSITIVE (NEGATIVE); COCAINE SCREEN URINE NEGATIVE (NEGATIVE); METHADONE STAT NEGATIVE (NEGATIVE); METHAMPHETAMINE SCREEN URINE S NEGATIVE (NEGATIVE); OPIATE SCREEN URINE NEGATIVE (NEGATIVE); OXYCODONE STAT NEGATIVE (NEGATIVE); PROPOXYPHENE STAT NEGATIVE (NEGATIVE); TRICYCLIC ANTIDEPRESSANTS SCRE NEGATIVE (NEGATIVE)
[2018-06-19] MEDS ORDERED: RX-CIPROFLOXACIN (CILOXAN) 0.3% OP SOLN 2.5 ML OP STA (12:28)
[2018-06-19 13:42] VITALS: BP 99/63
[2018-06-19] MEDS ORDERED: RX-OFLOXACIN 0.3% OPHTH SOLN 5 ML OP SCH (16:00)
[2018-06-19 17:04] VITALS: BP 138/83
== END 2018-06-19 17:04 ==
LOC: ER 07:49
DX: R45.851 Suicidal ideations (principal); R45.1 Restlessness and agitation; H10.9 Unspecified conjunctivitis; R44.0 Auditory hallucinations; I10 Essential (primary) hypertension; E10.9 Type 1 diabetes mellitus without complications; F25.9 Schizoaffective disorder, unspecified; F41.9 Anxiety disorder, unspecified; F43.10 Post-traumatic stress disorder, unspecified; F32.9 Major depressive disorder, single episode, unspecified; F12.10 Cannabis abuse, uncomplicated; Z86.59 Personal history of other mental and behavioral disorders
CPT/HCPCS: 36415; 80053; 80164; 80306; 80320; 80329; 81000; 82962; 84443; 85025; 93005; 96372

== ENCOUNTER 2018-08-30 15:11 | Emergency (ER) | payer MEDICAID ==
[~2018-08-30] VITALS: Ht 188 cm; Wt 114.3 kg
[~2018-08-30 15:11] MED LIST: BUSP10TA95; DIVA500T15; DULO30CA48; INSU100I14; INSU100I29; TBR.3OP51
[2018-08-30] MEDS ORDERED: ZIPRASIDONE 20 MG (GEODON) CAP PO ONE (15:45)
--- NOTE | 2018-08-30 15:45 | ED Psychosocial ---
General Chief Complaint: Psych/Social Disorder Stated Complaint: SUCIDIAL, ANXIETY Source: patient Exam Limitations: no limitations History of Present Illness Date Seen by Provider: Aug 30, 2018 Time Seen by Provider: 15:43 Initial Comments To ER per private vehicle from home with reports of anxiety and suicidal thoughts. This began about a week ago. He relates this to a recent move, he is currently living with friends, he states that he feels like his Invega shot is wearing off, cannot recall when his last injection was. He states that he feels like he is supposed to be the backbone with the family but is unable to currently due to his mental illness and this causes him a great deal of stress and anxiety. He would be agreeable to inpatient admission. He does have a plan for hurting himself but states "I don't want to talk about it". He is a diabetic and has been taking his insulin Timing/Duration: week, getting worse Severity: moderate Associated Symptoms: anxiety, suicidal ideation Allergies and Home Medications Allergies Coded Allergies: No Known Drug Allergies (Unverified , 06/19/18) Patient Home Medication List Home Medication List Reviewed: Yes Review of Systems Constitutional: see HPI EENTM: see HPI Respiratory: no symptoms reported Cardiovascular: no symptoms reported Genitourinary: no symptoms reported Musculoskeletal: no symptoms reported Skin: no symptoms reported Psychiatric/Neurological: See HPI Past Kxznegv-Rxswvq-Kbqzks Hx Patient Social History Drug of Choice: Marijuana Recent Foreign Travel: No Contact w/Someone Who Travel: No Past Medical History Surgeries: Yes (SPLEEN) Orthopedic Respiratory: No Cardiac: Yes Hypertension Neurological: No Genitourinary: No Gastrointestinal: No Musculoskeletal: No Endocrine: Yes Diabetes, Insulin dep HEENT: No Cancer: No Psychosocial: Yes (SCHITZOEFFECTIVE) Anxiety, PTSD, Depression Physical Exam Vital Signs - First Documented 08/30/18 15:25 Temp 98.1 Pulse 126 Resp 18 B/P (MAP) 135/83 (100) Pulse Ox 97 Capillary Refill : Height, Weight, BMI Height: 5'10.00" Weight: 220lbs. oz. 99.896790at; BMI Method:Stated General Appearance: WD/WN, no apparent distress, other (He is cooperative and pleasant but tearful during most of my conversation with him) HEENT: PERRL/EOMI, normal ENT inspection, TMs normal, pharynx normal Neck: non-tender, full range of motion; No lymphadenopathy (R), No lymphadenopathy (L) Respiratory: lungs clear, normal breath sounds, no respiratory distress, no accessory muscle use Cardiovascular: regular rate, rhythm, no murmur Gastrointestinal: normal bowel sounds, non tender, soft Extremities: normal range of motion, non-tender Neurologic/Psychiatric: alert, normal mood/affect, oriented x 3 Appearance/Memory: appropriate appearance Behavior/Eye Contact: cooperative, good eye contact Thoughts/Hallucinations: normal thought pattern, no apparent hallucination Skin: normal color, warm/dry He is paranoid here, told patient healthcare interpreter that "they're out there talking about me" Progress/Results/Core Measures Results/Orders Lab Results Laboratory Tests Test 08/30/18 15:46 08/30/18 16:10 Range/Units White Blood Count 14.5 H 4.3-11.0 10^3/uL Red Blood Count 4.84 4.35-5.85 10^6/uL Hemoglobin 14.6 13.3-17.7 G/DL Hematocrit 44 40-54 % Mean Corpuscular Volume 92 80-99 FL Mean Corpuscular Hemoglobin 30 25-34 PG Mean Corpuscular Hemoglobin Concent 33 32-36 G/DL Red Cell Distribution Width 15.2 H 10.0-14.5 % Platelet Count 515 H 130-400 10^3/uL Mean Platelet Volume 9.2 7.4-10.4 FL Neutrophils (%) (Auto) 58 42-75 % Lymphocytes (%) (Auto) 32 12-44 % Monocytes (%) (Auto) 9 0-12 % Eosinophils (%) (Auto) 1 0-10 % Basophils (%) (Auto) 0 0-10 % Neutrophils # (Auto) 8.5 H 1.8-7.8 X 10^3 Lymphocytes # (Auto) 4.7 H 1.0-4.0 X 10^3 Monocytes # (Auto) 1.2 H 0.0-1.0 X 10^3 Eosinophils # (Auto) 0.1 0.0-0.3 10^3/uL Basophils # (Auto) 0.0 0.0-0.1 10^3/uL Sodium Level 142 135-145 MMOL/L Potassium Level 3.8 3.6-5.0 MMOL/L Chloride Level 105 98-107 MMOL/L Carbon Dioxide Level 25 21-32 MMOL/L Anion Gap 12 5-14 MMOL/L Blood Urea Nitrogen 11 7-18 MG/DL Creatinine 0.83 0.60-1.30 MG/DL Estimat Glomerular Filtration Rate > 60 BUN/Creatinine Ratio 13 Glucose Level 74 70-105 MG/DL Calcium Level 10.3 H 8.5-10.1 MG/DL Corrected Calcium 10.1 8.5-10.1 MG/DL Total Bilirubin 0.2 0.1-1.0 MG/DL Aspartate Amino Transf (AST/SGOT) 22 5-34 U/L Alanine Aminotransferase (ALT/SGPT) 17 0-55 U/L Alkaline Phosphatase 112 40-136 U/L Total Protein 7.8 6.4-8.2 GM/DL Albumin 4.3 3.2-4.5 GM/DL Thyroid Stimulating Hormone (TSH) 1.53 0.35-4.94 UIU/ML Salicylates Level < 5.0 L 5.0-20.0 MG/DL Acetaminophen Level < 10 L 10-30 UG/ML Valproic Acid (Depakene) Level 10.1 L 50.0-100.0 UG/ML Serum Alcohol < 10 <10 MG/DL Urine Color YELLOW Urine Clarity CLEAR Urine pH 5 5-9 Urine Specific [place] 1.020 1.016-1.022 Urine Protein NEGATIVE NEGATIVE Urine Glucose (UA) 4+ H NEGATIVE Urine Ketones 1+ H NEGATIVE Urine Nitrite NEGATIVE NEGATIVE Urine Bilirubin NEGATIVE NEGATIVE Urine Urobilinogen NORMAL NORMAL MG/DL Urine Leukocyte Esterase 2+ H NEGATIVE Urine RBC (Auto) NEGATIVE NEGATIVE Urine RBC NONE /HPF Urine WBC 5-10 H /HPF Urine Squamous Epithelial Cells 2-5 /HPF Urine Crystals NONE /LPF Urine Bacteria TRACE /HPF Urine Casts NONE /LPF Urine Mucus LARGE H /LPF Urine Culture Indicated YES Urine Opiates Screen NEGATIVE NEGATIVE Urine Oxycodone Screen NEGATIVE NEGATIVE Urine Methadone Screen NEGATIVE NEGATIVE Urine Propoxyphene Screen NEGATIVE NEGATIVE Urine Barbiturates Screen NEGATIVE NEGATIVE Ur Tricyclic Antidepressants Screen NEGATIVE NEGATIVE Urine Phencyclidine Screen NEGATIVE NEGATIVE Urine Amphetamines Screen NEGATIVE NEGATIVE Urine Methamphetamines Screen NEGATIVE NEGATIVE Urine Benzodiazepines Screen NEGATIVE NEGATIVE Urine Cocaine Screen NEGATIVE NEGATIVE Urine Cannabinoids Screen POSITIVE H NEGATIVE My Orders Orders - NICKIE COSTA MANAGER FINANCIAL REPORTING Cbc With Automated Diff (08/30/18 15:19) Comprehensive Metabolic Panel (08/30/18 15:19) Salicylate (08/30/18 15:19) Acetaminophen (08/30/18 15:19) Ekg Tracing (08/30/18 15:19) Alcohol (08/30/18 15:19) Ua Culture If Indicated (08/30/18 15:19) Drug Screen Stat (Urine) (08/30/18 15:19) Thyroid Stimulating Hormone (08/30/18 15:19) Valproic Acid (08/30/18 15:19) Ziprasidone Capsule (Geodon Capsule) (08/30/18 15:45) Urine Culture (08/30/18 16:10) Medications Given in ED Current Medications Medications Dose Ordered Sig/Cl Route Start Time Stop Time Status Last Admin Dose Admin Ziprasidone 20 mg ONCE ONCE PO 08/30/18 15:45 08/30/18 15:46 DC 08/30/18 16:13 20 MG Vital Signs/I&O 08/30/18 08/30/18 15:25 16:24 Temp 98.1 Pulse 126 126 Resp 18 18 B/P (MAP) 135/83 (100) 135/83 (100) Pulse Ox 97 97 Departure Communication (Admissions) 1630-Patient has spoken to his on our portable telephone, states that he wants to go home now. He assures me that he does not have any thoughts of harming himself any longer, he will not kill himself or harm himself in any way. Come back if those feelings come back. He did agree to sign out AGAINST MEDICAL ADVICE. Impression Primary Impression: Emotional lability Disposition: 07 AGAINST MEDICAL ADVICE Condition: Against Medical Advice Departure-Patient Inst. Decision time for Depature: 16:31 Referrals: NO,LOCAL PHYSICIAN (PCP) Primary Care Physician Patient Instructions: General (DC) Add. Discharge Instructions: 1. Contact [facility] tomorrow to make an appointment to be seen. Return to ER for any recurrent thoughts of harming herself. All discharge instructions reviewed with patient and/or family. Voiced understanding. NICKIE COSTA APRN Aug 30, 2018 15:45
[2018-08-30 15:50] LABS: BASOPHILS % (AUTO) 0 % (0-10); EOSINOPHILS # (AUTO) 0.1 10^3/uL (0.0-0.3); EOSINOPHILS % (AUTO) 1 % (0-10); HEMATOCRIT 44 % (40-54); HEMOGLOBIN 14.6 G/DL (13.3-17.7); LYMPHOCYTES # (AUTO) 4.7 X 10^3 (1.0-4.0); LYMPHOCYTES % (AUTO) 32 % (12-44); MEAN CORPUSCULAR HEMOGLOBIN 30 PG (25-34); MEAN CORPUSCULAR HGB CONC 33 G/DL (32-36); MEAN CORPUSCULAR VOLUME 92 FL (80-99); MEAN PLATELET VOLUME 9.2 FL (7.4-10.4); MONOCYTES # (AUTO) 1.2 X 10^3 (0.0-1.0); MONOCYTES % (AUTO) 9 % (0-12); NEUTROPHILS # (AUTO) 8.5 X 10^3 (1.8-7.8); NEUTROPHILS % (AUTO) 58 % (42-75); PLATELET COUNT 515 10^3/uL (130-400); RED CELL DISTRIBUTION WIDTH 15.2 % (10.0-14.5); WHITE BLOOD COUNT 14.5 10^3/uL (4.3-11.0)
[2018-08-30 16:11] LABS: ALANINE AMINOTRANSFERASE 17 U/L (0-55); ALBUMIN 4.3 GM/DL (3.2-4.5); ALKALINE PHOSPHATASE 112 U/L (40-136); BILIRUBIN,TOTAL 0.2 MG/DL (0.1-1.0); BUN/CREATININE RATIO 13; CALCIUM 10.3 MG/DL (8.5-10.1); CARBON DIOXIDE 25 MMOL/L (21-32); CHLORIDE 105 MMOL/L (98-107); CREATININE SERUM 0.83 MG/DL (0.60-1.30); GFR ESTIMATED > 60; GLUCOSE 74 MG/DL (70-105); POTASSIUM 3.8 MMOL/L (3.6-5.0); SALICYLATE < 5.0 MG/DL (5.0-20.0); SODIUM 142 MMOL/L (135-145); TOTAL PROTEIN 7.8 GM/DL (6.4-8.2)
[2018-08-30 16:13] LABS: ACETAMINOPHEN < 10 UG/ML (10-30)
--- NOTE | 2018-08-30 16:14 | NUR ---
PT PARANOID THINKS PEOPLE ARE TALKING ABOUT HIM
[2018-08-30 16:16] LABS: BILIRUBIN,URINE NEGATIVE (NEGATIVE); CLARITY,URINE CLEAR; COLOR,URINE YELLOW; GLUCOSE, URINE (UA) 4+ (NEGATIVE); KETONES,URINE 1+ (NEGATIVE); LEUKOCYTE ESTERASE ,URINE 2+ (NEGATIVE); NITRITE,URINE NEGATIVE (NEGATIVE); PH,URINE 5 (5-9); PROTEIN,URINE NEGATIVE (NEGATIVE); UROBILINOGEN,URINE NORMAL (NORMAL)
[2018-08-30 16:23] LABS: BACTERIA,URINE TRACE /HPF
[2018-08-30 16:24] VITALS: BP 135/83
--- NOTE | 2018-08-30 16:24 | NUR ---
PT SIGNED AMA. STATES JUST CANT FIGURE THINGS OUT, WHITE ROOM MAKING HIM GO CRAZY. PT STATES IS NOT GOING TO HARM SELF. STATES NEEDS TO GET WITH AND FIGURE THINGS OUT
[2018-08-30 16:30] LABS: VALPROIC ACID 10.1 UG/ML (50.0-100.0)
[2018-08-30 16:32] LABS: AMPHETAMINE SCREEN, URINE NEGATIVE (NEGATIVE); BARBITURATE SCREEN URINE NEGATIVE (NEGATIVE); BENZODIAZEPINES SCREEN URINE NEGATIVE (NEGATIVE); CANNABINOID SCREEN, URINE POSITIVE (NEGATIVE); COCAINE SCREEN URINE NEGATIVE (NEGATIVE); METHADONE STAT NEGATIVE (NEGATIVE); METHAMPHETAMINE SCREEN URINE S NEGATIVE (NEGATIVE); OPIATE SCREEN URINE NEGATIVE (NEGATIVE); OXYCODONE STAT NEGATIVE (NEGATIVE); PROPOXYPHENE STAT NEGATIVE (NEGATIVE); TRICYCLIC ANTIDEPRESSANTS SCRE NEGATIVE (NEGATIVE)
== END 2018-08-30 16:33 | disposition left against medical advice (07) ==
LOC: EDUNIT# 15:11 → ER 15:13
DX: R45.86 Emotional lability (principal); F41.9 Anxiety disorder, unspecified; E11.9 Type 2 diabetes mellitus without complications; I10 Essential (primary) hypertension; F43.10 Post-traumatic stress disorder, unspecified; F32.9 Major depressive disorder, single episode, unspecified; F25.9 Schizoaffective disorder, unspecified
CPT/HCPCS: 36415; 80053; 80164; 80306; 80320; 80329; 81000; 84443; 85025; 87088; 93005

== ENCOUNTER 2018-09-01 18:42 | Emergency (ER) | payer MEDICAID ==
[~2018-09-01] VITALS: Ht 188 cm; Wt 111.6 kg
[2018-09-01 21:07] LABS: BASOPHILS % (AUTO) 0 % (0-10); EOSINOPHILS # (AUTO) 0.1 10^3/uL (0.0-0.3); EOSINOPHILS % (AUTO) 1 % (0-10); HEMATOCRIT 42 % (40-54); LYMPHOCYTES # (AUTO) 3.8 X 10^3 (1.0-4.0); LYMPHOCYTES % (AUTO) 26 % (12-44); MEAN CORPUSCULAR HEMOGLOBIN 31 PG (25-34); MEAN CORPUSCULAR HGB CONC 34 G/DL (32-36); MEAN CORPUSCULAR VOLUME 92 FL (80-99); MEAN PLATELET VOLUME 9.3 FL (7.4-10.4); MONOCYTES # (AUTO) 1.2 X 10^3 (0.0-1.0); MONOCYTES % (AUTO) 8 % (0-12); NEUTROPHILS # (AUTO) 9.4 X 10^3 (1.8-7.8); NEUTROPHILS % (AUTO) 65 % (42-75); PLATELET COUNT 581 10^3/uL (130-400); RED CELL DISTRIBUTION WIDTH 15.4 % (10.0-14.5); WHITE BLOOD COUNT 14.6 10^3/uL (4.3-11.0)
[2018-09-01] MEDS ORDERED: NS IV 1000 ML 1,000 ML IV ONE (21:13)
[2018-09-01] MEDS ORDERED: inSUlin (REGULAR) HUMAN 1 UNIT/0.01 ML (CHARGE PER UNIT) IV ONE (21:15)
[2018-09-01 21:22] LABS: BAND NEUTROPHILS 0 %; BASOPHILS % (MANUAL) 0 %; EOSINOPHILS % (MANUAL) 1 %; LYMPHOCYTES % (MANUAL) 30 %; MONOCYTES % (MANUAL) 4 %; NEUTROPHILS % (MANUAL) 65 %
[2018-09-01 21:23] LABS: RBC MORPH NORMAL
[2018-09-01 21:29] LABS: ALANINE AMINOTRANSFERASE 15 U/L (0-55); ALBUMIN 4.3 GM/DL (3.2-4.5); ALKALINE PHOSPHATASE 124 U/L (40-136); AMYLASE 54 U/L (25-125); BILIRUBIN,TOTAL 0.3 MG/DL (0.1-1.0); BUN/CREATININE RATIO 14; CALCIUM 10.2 MG/DL (8.5-10.1); CARBON DIOXIDE 21 MMOL/L (21-32); CHLORIDE 93 MMOL/L (98-107); CREATININE SERUM 1.12 MG/DL (0.60-1.30); GFR ESTIMATED > 60; LIPASE 16 U/L (8-78); MAGNESIUM 1.6 MG/DL (1.8-2.4); SODIUM 132 MMOL/L (135-145); TOTAL PROTEIN 7.7 GM/DL (6.4-8.2)
[2018-09-01 21:34] LABS: GLUCOSE 448 MG/DL (70-105); VALPROIC ACID 44.2 UG/ML (50.0-100.0)
[2018-09-01 21:58] LABS: BILIRUBIN,URINE NEGATIVE (NEGATIVE); CLARITY,URINE CLEAR; COLOR,URINE YELLOW; GLUCOSE, URINE (UA) 4+ (NEGATIVE); KETONES,URINE 2+ (NEGATIVE); LEUKOCYTE ESTERASE ,URINE NEGATIVE (NEGATIVE); NITRITE,URINE NEGATIVE (NEGATIVE); PH,URINE 5 (5-9); PROTEIN,URINE NEGATIVE (NEGATIVE); UROBILINOGEN,URINE NORMAL (NORMAL)
[2018-09-01 22:00] LABS: ABG BASE EXCESS 4.8 MMOL/L (-2.5-2.5); ABG PCO2 30 MMHG (35-45); ABG PH 7.56 (7.37-7.43); ABG PO2 74 MMHG (79-93); ABG TCO2 28.3 MMOL/L (21.0-31.0)
[2018-09-01 22:03] LABS: ABG OXYGEN SATURATION 98 % (94-100); ALLENS TEST YES-POS; INSPIRED O2 ROOM AIR; VENTILATOR NO
[2018-09-01 22:05] LABS: BACTERIA,URINE NEGATIVE /HPF; SQUAMOUS EPITHELIAL CELL,UR 0-2 /HPF; WBC,URINE 0-2 /HPF
[2018-09-01 22:10] LABS: AMPHETAMINE SCREEN, URINE NEGATIVE (NEGATIVE); BARBITURATE SCREEN URINE NEGATIVE (NEGATIVE); BENZODIAZEPINES SCREEN URINE NEGATIVE (NEGATIVE); CANNABINOID SCREEN, URINE POSITIVE (NEGATIVE); COCAINE SCREEN URINE NEGATIVE (NEGATIVE); METHADONE STAT NEGATIVE (NEGATIVE); METHAMPHETAMINE SCREEN URINE S NEGATIVE (NEGATIVE); OPIATE SCREEN URINE NEGATIVE (NEGATIVE); OXYCODONE STAT NEGATIVE (NEGATIVE); PROPOXYPHENE STAT NEGATIVE (NEGATIVE); TRICYCLIC ANTIDEPRESSANTS SCRE NEGATIVE (NEGATIVE)
[2018-09-01] MEDS ORDERED: MAGNESIUM 1 GM/100 ML IVPB 100 ML IV ONE (22:15)
[2018-09-01] MEDS ORDERED: MAGNESIUM OXIDE (MAG-OX)400 MG TAB PO ONE (22:15)
--- NOTE | 2018-09-01 22:28 | ED General ---
General Chief Complaint: Glucose Problems Stated Complaint: HIGH BLOOD SUGAR Nursing Triage Note: pt presents to ed with complaints of elevated blood sugars and cough/cold/flu s/s. pt also reports nausea and vomiting. Nursing Sepsis Screen: No Definite Risk Source of Information: Patient (PT IS HOSTILE AND REFUSING TO ANSWER QUESTIONS- -PT STATES "THERE'S NOTHING ELSE YOU NEED TO KNOW ABOUT!!" "JUST GIVE ME SOME DAMN SALINE!!"), Old Records (ALL PMH IS FROM OLD RECORDS, PT REFUSES TO ANSWER QUESTIONS ABOUT PMH) History of Present Illness Date Seen by Provider: Sep 01, 2018 Time Seen by Provider: 20:49 Initial Comments PT ARRIVES VIA POV FROM HOME PT STATES " I FEEL LIKE MY BLOOD SUGAR'S HIGH AND MY BODY FEELS LIKE IT'S GOING TO EXPLODE" STATES HE IS TYPE 1 DIABETIC--DX AGE 27 STATES HIS BLOOD SUGAR WAS OVER 300 EARLIER DENIES ANY MISSED DOSES OF INSULIN STATES "I BEEN COUGHING AND PUKING AND I GOT A HEADACHE" YESTERDAY AND TODAY STATES HE DOES COUGH, GAG AND THROW UP, AND STATES "SOMETIMES IT JUST SPEWS OUT- -LIKE THE SUGAR'S JUST SPEWING OUT OF ME" STATES HE SPIT STUFF UP " LIKE THE SUGAR'S JUST LEAVING MY BODY" STATES HE HAS VOMITED X 5 NO BM FOR 2 DAYS, BUT DID HAVE A NORMAL BM TODAY HAS HAD GREEN NASAL DRAINAGE C/O URINARY FREQUENCY HAS NOT CHECKED TEMP--DOES NOT KNOW IF HE HAS HAD FEVER OR NOT PT STATES HE "DOESN'T HAVE A DR BECAUSE I JUST MOVED HERE" STATES HE MOVED FROM [place] TO [place] 3 MONTHS AGO, AND JUST MOVED HERE FROM [place] A MONTH AGO. HAD A DR. IN [place], BUT HAS NOT SEEN IN 6-7 MONTHS OR MORE PT WAS HERE 06/19/18 FOR SUICIDAL IDEATION, VIOLENT BEHAVIOR AND WAS TRANSFERRED TO PSYCH UNIT PT WAS HERE 08/30/18 FOR SUICIDAL IDEATION, THEN LEFT AMA. PT STATES HE TAKES [employer], [employer] AND [employer] WANTS WORK EXCUSE "FOR THE LAST FEW DAYS" Allergies and Home Medications Allergies Coded Allergies: No Known Drug Allergies (Unverified , 06/19/18) Patient Home Medication List Home Medication List Reviewed: Yes Review of Systems Review of Systems Constitutional: see HPI Respiratory: cough Gastrointestinal: vomiting Genitourinary: frequency Psychiatric/Neurological: See HPI Past Xsnrwmt-Phfkvz-Dgddsy Hx Patient Social History Alcohol Use: Denies Use Recreational Drug Use: Yes (THC) Drug of Choice: Marijuana Smoking Status: Current Everyday Smoker (1 PPD) Type Used: Cigarettes Recent Foreign Travel: No Contact w/Someone Who Travel: No Recent Infectious Disease Expo: No Recent Hopitalizations: No Physical Abuse: No Sexual Abuse: No Mistreated: No Fear: No Past Medical History Surgeries: Yes (SPLEEN, back, r hand, legs) Appendectomy, Orthopedic Respiratory: No Cardiac: Yes Hypertension Neurological: No Genitourinary: No Gastrointestinal: No Musculoskeletal: No Endocrine: Yes Diabetes, Insulin dep HEENT: No Cancer: No Psychosocial: Yes (SCHIZOAFFECTIVE; SUICIDAL IDEATIONS) Anxiety, PTSD, Depression Physical Exam Vital Signs Vital Signs - First Documented 09/01/18 21:03 Temp 97.2 Pulse 126 Resp 18 B/P (MAP) 131/95 (107) Pulse Ox 95 Capillary Refill : Less Than 3 Seconds Height, Weight, BMI Height: 6'2.00" Weight: 246lbs. oz. [id number]; BMI Method:Stated General Appearance: No Apparent Distress, WD/WN, Other (HOSTILE, ) HEENT: PERRL/EOMI, Other (MILD NASAL CONGESTION) Neck: Normal Inspection Respiratory: Normal Breath Sounds, No Accessory Muscle Use, No Respiratory Distress Cardiovascular: Regular Rate, Rhythm, No Murmur Gastrointestinal: Non Tender, Soft Extremity: Normal Range of Motion, No Pedal Edema Neurologic/Psychiatric: Alert, Oriented x3, No Motor/Sensory Deficits Skin: Normal Color, Warm/Dry Progress/Results/Core Measures Suspected Sepsis Recent Fever Within 48 Hours: No Infection Criteria Present: None New/Unexplained Altered Menta: No Sepsis Screen: No Definite Risk SIRS Temperature:97.2 Pulse: 126 Respiratory Rate: 18 Laboratory Tests 09/01/18 20:54: White Blood Count 14.6H Blood Pressure 131 /95 Mean: 107 Laboratory Tests 09/01/18 20:54: Creatinine 1.12, Platelet Count 581H, Total Bilirubin 0.3 Results/Orders Lab Results Laboratory Tests Test 09/01/18 20:54 09/01/18 20:59 09/01/18 21:48 09/01/18 21:49 Range/Units White Blood Count 14.6 H 4.3-11.0 10^3/uL Red Blood Count 4.57 4.35-5.85 10^6/uL Hemoglobin 14.0 13.3-17.7 G/DL Hematocrit 42 40-54 % Mean Corpuscular Volume 92 80-99 FL Mean Corpuscular Hemoglobin 31 25-34 PG Mean Corpuscular Hemoglobin Concent 34 32-36 G/DL Red Cell Distribution Width 15.4 H 10.0-14.5 % Platelet Count 581 H 130-400 10^3/uL Mean Platelet Volume 9.3 7.4-10.4 FL Neutrophils (%) (Auto) 65 42-75 % Lymphocytes (%) (Auto) 26 12-44 % Monocytes (%) (Auto) 8 0-12 % Eosinophils (%) (Auto) 1 0-10 % Basophils (%) (Auto) 0 0-10 % Neutrophils # (Auto) 9.4 H 1.8-7.8 X 10^3 Lymphocytes # (Auto) 3.8 1.0-4.0 X 10^3 Monocytes # (Auto) 1.2 H 0.0-1.0 X 10^3 Eosinophils # (Auto) 0.1 0.0-0.3 10^3/uL Basophils # (Auto) 0.0 0.0-0.1 10^3/uL Neutrophils % (Manual) 65 % Lymphocytes % (Manual) 30 % Monocytes % (Manual) 4 % Eosinophils % (Manual) 1 % Basophils % (Manual) 0 % Band Neutrophils 0 % Blood Morphology Comment NORMAL Sodium Level 132 L 135-145 MMOL/L Potassium Level 5.0 3.6-5.0 MMOL/L Chloride Level 93 L 98-107 MMOL/L Carbon Dioxide Level 21 21-32 MMOL/L Anion Gap 18 H 5-14 MMOL/L Blood Urea Nitrogen 16 7-18 MG/DL Creatinine 1.12 0.60-1.30 MG/DL Estimat Glomerular Filtration Rate > 60 BUN/Creatinine Ratio 14 Glucose Level 448 *H 70-105 MG/DL Calcium Level 10.2 H 8.5-10.1 MG/DL Corrected Calcium 10.0 8.5-10.1 MG/DL Magnesium Level 1.6 L 1.8-2.4 MG/DL Total Bilirubin 0.3 0.1-1.0 MG/DL Aspartate Amino Transf (AST/SGOT) 17 5-34 U/L Alanine Aminotransferase (ALT/SGPT) 15 0-55 U/L Alkaline Phosphatase 124 40-136 U/L Total Protein 7.7 6.4-8.2 GM/DL Albumin 4.3 3.2-4.5 GM/DL Amylase Level 54 25-125 U/L Lipase 16 8-78 U/L Valproic Acid (Depakene) Level 44.2 L 50.0-100.0 UG/ML Serum Alcohol < 10 <10 MG/DL Glucometer 392 H 70-110 MG/DL Blood Gas Puncture Site RIGHT RADIAL Blood Gas Patient Temperature 98.0 Arterial Blood pH 7.56 H 7.37-7.43 Arterial Blood Partial Pressure CO2 30 L 35-45 MMHG Arterial Blood Partial Pressure O2 74 L 79-93 MMHG Arterial Blood HCO3 27 23-27 MMOL/L Arterial Blood Total CO2 28.3 21.0-31.0 MMOL/L Arterial Blood Oxygen Saturation 98 94-100 % Arterial Blood Base Excess 4.8 H -2.5-2.5 MMOL/L Herve Test YES-POS Blood Gas Ventilator Setting NO Blood Gas Inspired Oxygen ROOM AIR Urine Color YELLOW Urine Clarity CLEAR Urine pH 5 5-9 Urine Specific [place] 1.025 H 1.016-1.022 Urine Protein NEGATIVE NEGATIVE Urine Glucose (UA) 4+ H NEGATIVE Urine Ketones 2+ H NEGATIVE Urine Nitrite NEGATIVE NEGATIVE Urine Bilirubin NEGATIVE NEGATIVE Urine Urobilinogen NORMAL NORMAL MG/DL Urine Leukocyte Esterase NEGATIVE NEGATIVE Urine RBC (Auto) NEGATIVE NEGATIVE Urine RBC NONE /HPF Urine WBC 0-2 /HPF Urine Squamous Epithelial Cells 0-2 /HPF Urine Crystals NONE /LPF Urine Bacteria NEGATIVE /HPF Urine Casts NONE /LPF Urine Mucus NEGATIVE /LPF Urine Culture Indicated NO Urine Opiates Screen NEGATIVE NEGATIVE Urine Oxycodone Screen NEGATIVE NEGATIVE Urine Methadone Screen NEGATIVE NEGATIVE Urine Propoxyphene Screen NEGATIVE NEGATIVE Urine Barbiturates Screen NEGATIVE NEGATIVE Ur Tricyclic Antidepressants Screen NEGATIVE NEGATIVE Urine Phencyclidine Screen NEGATIVE NEGATIVE Urine Amphetamines Screen NEGATIVE NEGATIVE Urine Methamphetamines Screen NEGATIVE NEGATIVE Urine Benzodiazepines Screen NEGATIVE NEGATIVE Urine Cocaine Screen NEGATIVE NEGATIVE Urine Cannabinoids Screen POSITIVE H NEGATIVE Test 09/01/18 22:44 Range/Units Glucometer 218 H 70-110 MG/DL Micro Results Microbiology 09/01/18 Influenza Types A,B Antigen (JB) - Final, Complete My Orders Orders - KURTIS,JOLLY K DO Accucheck Stat ONCE (09/01/18 20:48) Saline Lock/Iv-Start (09/01/18 20:56) Monitor-Rhythm Ecg Trace Only (09/01/18 20:56) Alcohol (09/01/18 20:56) Amylase (09/01/18 20:56) Arterial Blood Gas (09/01/18 20:56) Cbc With Automated Diff (09/01/18 20:56) Comprehensive Metabolic Panel (09/01/18 20:56) Drug Screen Stat (Urine) (09/01/18 20:56) Lipase (09/01/18 20:56) Magnesium (09/01/18 20:56) Ua Culture If Indicated (09/01/18 20:56) Blood Culture (09/01/18 20:56) Influenza A And B Antigens (09/01/18 20:56) Valproic Acid (09/01/18 20:56) Manual Differential (09/01/18 20:54) Insulin (Regular) Human (Humulin R (Per (09/01/18 21:15) Saline Lock/Iv-Start (09/01/18 21:13) Ns Iv 1000 Ml (Sodium Chloride 0.9%) (09/01/18 21:13) Magnesium 1 Gm/100 Ml Ivpb (Magnesium Gonzalez (09/01/18 22:15) Magnesium Oxide Tablet (Mag Ox Tablet) (09/01/18 22:15) Accucheck Stat ONCE (09/01/18 22:23) Medications Given in ED Current Medications Medications Dose Ordered Sig/Cl Route Start Time Stop Time Status Last Admin Dose Admin Insulin Human Regular 20 unit ONCE ONCE IV 09/01/18 21:15 09/01/18 21:16 DC 09/01/18 21:36 20 UNIT Magnesium Oxide 800 mg ONCE ONCE PO 09/01/18 22:15 09/01/18 22:34 DC 09/01/18 23:00 800 MG Magnesium Sulfate/ Dextrose 100 ml @ 100 mls/hr ONCE ONCE IV 09/01/18 22:15 09/01/18 23:14 09/01/18 23:01 100 MLS/HR Sodium Chloride 1,000 ml @ 0 mls/hr Q0M ONCE IV 09/01/18 21:13 09/01/18 21:14 DC 09/01/18 21:36 0 MLS/HR Vital Signs/I&O 09/01/18 21:03 Temp 97.2 Pulse 126 Resp 18 B/P (MAP) 131/95 (107) Pulse Ox 95 Capillary Refill : Less Than 3 Seconds Blood Pressure Mean: 107 Point of Care Testing Finger Stick Blood Glucose: 392 Progress Note : Progress Note GIVEN IV FLUIDS, INSULIN AND IV AND PO MAGNESIUM. NO COMPLAINTS OF NAUSEA, NO VOMITING AND NO COUGH NOTED DURING ER STAY NO EXCESSIVE THIRST OR EXCESSIVE URINATION DURING ER STAY UNEVENTFUL ER STAY, PT CALMED SHORTLY AFTER ARRIVAL BLOOD GLUCOSE DOWN TO 219 PRIOR TO DISMISSAL Departure Impression Primary Impression: Uncontrolled diabetes mellitus Additional Impressions: Hypomagnesemia URI (upper respiratory infection) Illicit drug use Disposition: HOME, SELF-CARE Condition: Improved Departure-Patient Inst. Referrals: NO,LOCAL PHYSICIAN (PCP) Primary Care Physician Patient Instructions: Diabetes Type 1, Adult (DC), Low Magnesium Level (DC) Add. Discharge Instructions: CHECK YOUR BLOOD GLUCOSE 4 TIMES A DAY--BEFORE EACH MEAL AND AT BEDTIME AND KEEP DIARY OF READINGS. INCREASE YOUR PROTEIN AND DECREASE YOUR CARBOHYDRATE INTAKE TAKE YOUR INSULIN PRESCRIBED FOLLOW UP WITH DR OF CHOICE THIS WEEK FOR FURTHER CARE All discharge instructions reviewed with patient and/or family. Voiced understanding. JOLLY HULL DO Sep 01, 2018 22:27
[2018-09-02 00:18] VITALS: BP 131/99
== END 2018-09-02 00:18 | disposition home or self-care (01) ==
LOC: EDUNIT# 18:42 → ER 18:43
DX: I10 Essential (primary) hypertension (principal); E11.65 Type 2 diabetes mellitus with hyperglycemia; E83.42 Hypomagnesemia; J06.9 Acute upper respiratory infection, unspecified; F41.9 Anxiety disorder, unspecified; F43.10 Post-traumatic stress disorder, unspecified; F32.9 Major depressive disorder, single episode, unspecified; F19.10 Other psychoactive substance abuse, uncomplicated; F25.9 Schizoaffective disorder, unspecified; F12.10 Cannabis abuse, uncomplicated; F17.210 Nicotine dependence, cigarettes, uncomplicated; Z90.49 Acquired absence of other specified parts of digestive tract
CPT/HCPCS: 36415; 80053; 80164; 80306; 80320; 81000; 82150; 82805; 82962; 83690; 83735; 85007; 85027; 87040; 87804; 93041

== ENCOUNTER 2018-09-10 11:39 | Emergency (ER) | payer MEDICAID ==
[~2018-09-10] VITALS: Ht 188 cm; Wt 106.1 kg
--- NOTE | 2018-09-10 11:50 | NUR ---
MULTIPLE SUPERVISOR TESTING IN WAITIN ROOM TALKING TO PT.
--- NOTE | 2018-09-10 11:58 | NUR ---
JOB PRINTER APPRENTICE TALKING TO ELHAM NOTIFIED PT WOULD NOT BE BROUGHT BACK UNTIL HIS IS ADMITTED AND THE PSYCH ROOM IS FREE. JOB PRINTER APPRENTICE STATES A COUPLE OF THEM WILL STAY WITH HIM IN THE WAITING ROOM.
[2018-09-10] MEDS ORDERED: OLANZapine 5 MG ODT (ZyPREXA ZYDIS) PO ONE (12:45)
--- NOTE | 2018-09-10 13:00 | ED Psychosocial ---
General Chief Complaint: Psych/Social Disorder Stated Complaint: PSYCH PROBLEMS Source: patient Exam Limitations: no limitations History of Present Illness Date Seen by Provider: Sep 10, 2018 Time Seen by Provider: 12:59 Initial Comments to ER with reports of suicidal ideation. He was here with his earlier yelling at the nurses when his was a patient, police were called and he was nowhere to be found when police arrived. He then called his mental health counselor and told them he wanted the meal cook to shoot him because he's been depressed and has no reason to live. They advised him to return to the emergency room for evaluation. He states "life is not worth living anymore" and he relates this to "no job, no money, no food, no car". He does not have a specific plan for how he wants to kill himself. He is a type I diabetic. Timing/Duration: constant Severity: moderate Associated Symptoms: suicidal ideation Allergies and Home Medications Allergies Coded Allergies: No Known Drug Allergies (Unverified , 06/19/18) Patient Home Medication List Home Medication List Reviewed: Yes Review of Systems Constitutional: see HPI EENTM: see HPI Respiratory: no symptoms reported Cardiovascular: no symptoms reported Genitourinary: no symptoms reported Musculoskeletal: no symptoms reported Skin: no symptoms reported Psychiatric/Neurological: See HPI, Depressed Past Darwmnw-Llthry-Dbmxja Hx Patient Social History Drug of Choice: Marijuana Type Used: Cigarettes Recent Hopitalizations: No Past Medical History Surgeries: Yes (SPLEEN, back, r hand, legs) Appendectomy, Orthopedic Respiratory: No Cardiac: Yes Hypertension Neurological: No Genitourinary: No Gastrointestinal: No Musculoskeletal: No Endocrine: Yes Diabetes, Insulin dep HEENT: No Cancer: No Psychosocial: Yes (SCHIZOAFFECTIVE; SUICIDAL IDEATIONS) Anxiety, PTSD, Depression Physical Exam Vital Signs - First Documented 09/10/18 12:30 Temp 97.7 Pulse 121 Resp 25 B/P (MAP) 134/86 (102) Pulse Ox 97 O2 Delivery Room Air Capillary Refill : Height, Weight, BMI Height: 6'2.00" Weight: 246lbs. oz. [id number]; BMI Method:Stated General Appearance: WD/WN, no apparent distress HEENT: PERRL/EOMI, normal ENT inspection Neck: non-tender, full range of motion Respiratory: no respiratory distress, no accessory muscle use Gastrointestinal: normal bowel sounds, non tender, soft Extremities: normal range of motion, non-tender Neurologic/Psychiatric: alert, normal mood/affect, oriented x 3 Appearance/Memory: appropriate appearance, appropriate insight Behavior/Eye Contact: cooperative Thoughts/Hallucinations: No no apparent hallucination, No auditory hallucinations, No delusions, No flight of ideas; other (he was aggressive and screaming and yelling earlier,) Skin: normal color, warm/dry Progress/Results/Core Measures Results/Orders Lab Results Laboratory Tests Test 09/10/18 12:40 09/10/18 13:25 09/10/18 13:46 Range/Units Glucometer 166 H 70-110 MG/DL White Blood Count 10.8 4.3-11.0 10^3/uL Red Blood Count 4.34 L 4.35-5.85 10^6/uL Hemoglobin 13.5 13.3-17.7 G/DL Hematocrit 40 40-54 % Mean Corpuscular Volume 92 80-99 FL Mean Corpuscular Hemoglobin 31 25-34 PG Mean Corpuscular Hemoglobin Concent 34 32-36 G/DL Red Cell Distribution Width 15.4 H 10.0-14.5 % Platelet Count 529 H 130-400 10^3/uL Mean Platelet Volume 8.7 7.4-10.4 FL Neutrophils (%) (Auto) 71 42-75 % Lymphocytes (%) (Auto) 20 12-44 % Monocytes (%) (Auto) 8 0-12 % Eosinophils (%) (Auto) 1 0-10 % Basophils (%) (Auto) 0 0-10 % Neutrophils # (Auto) 7.7 1.8-7.8 X 10^3 Lymphocytes # (Auto) 2.1 1.0-4.0 X 10^3 Monocytes # (Auto) 0.9 0.0-1.0 X 10^3 Eosinophils # (Auto) 0.1 0.0-0.3 10^3/uL Basophils # (Auto) 0.0 0.0-0.1 10^3/uL Sodium Level 139 135-145 MMOL/L Potassium Level 3.8 3.6-5.0 MMOL/L Chloride Level 101 98-107 MMOL/L Carbon Dioxide Level 24 21-32 MMOL/L Anion Gap 14 5-14 MMOL/L Blood Urea Nitrogen 12 7-18 MG/DL Creatinine 0.84 0.60-1.30 MG/DL Estimat Glomerular Filtration Rate > 60 BUN/Creatinine Ratio 14 Glucose Level 168 H 70-105 MG/DL Calcium Level 9.6 8.5-10.1 MG/DL Corrected Calcium 9.7 8.5-10.1 MG/DL Total Bilirubin 0.2 0.1-1.0 MG/DL Aspartate Amino Transf (AST/SGOT) 12 5-34 U/L Alanine Aminotransferase (ALT/SGPT) 11 0-55 U/L Alkaline Phosphatase 100 40-136 U/L Total Protein 6.9 6.4-8.2 GM/DL Albumin 3.9 3.2-4.5 GM/DL Salicylates Level < 5.0 L 5.0-20.0 MG/DL Acetaminophen Level < 10 L 10-30 UG/ML Serum Alcohol < 10 <10 MG/DL Urine Color YELLOW Urine Clarity CLEAR Urine pH 5 5-9 Urine Specific [place] 1.020 1.016-1.022 Urine Protein 2+ H NEGATIVE Urine Glucose (UA) 4+ H NEGATIVE Urine Ketones 3+ H NEGATIVE Urine Nitrite NEGATIVE NEGATIVE Urine Bilirubin NEGATIVE NEGATIVE Urine Urobilinogen NORMAL NORMAL MG/DL Urine Leukocyte Esterase 1+ H NEGATIVE Urine RBC (Auto) NEGATIVE NEGATIVE Urine RBC NONE /HPF Urine WBC 2-5 /HPF Urine Squamous Epithelial Cells RARE /HPF Urine Crystals NONE /LPF Urine Bacteria NEGATIVE /HPF Urine Casts NONE /LPF Urine Mucus SMALL H /LPF Urine Culture Indicated NO Urine Opiates Screen NEGATIVE NEGATIVE Urine Oxycodone Screen NEGATIVE NEGATIVE Urine Methadone Screen NEGATIVE NEGATIVE Urine Propoxyphene Screen NEGATIVE NEGATIVE Urine Barbiturates Screen NEGATIVE NEGATIVE Ur Tricyclic Antidepressants Screen NEGATIVE NEGATIVE Urine Phencyclidine Screen NEGATIVE NEGATIVE Urine Amphetamines Screen NEGATIVE NEGATIVE Urine Methamphetamines Screen NEGATIVE NEGATIVE Urine Benzodiazepines Screen NEGATIVE NEGATIVE Urine Cocaine Screen NEGATIVE NEGATIVE Urine Cannabinoids Screen POSITIVE H NEGATIVE My Orders Orders - NICKIE COSTA APRN Olanzapine Orally Dissolve Tab (Zyprexa (09/10/18 12:45) Cbc With Automated Diff (09/10/18 12:53) Comprehensive Metabolic Panel (09/10/18 12:53) Ua Culture If Indicated (09/10/18 12:53) Drug Screen Stat (Urine) (09/10/18 12:53) Acetaminophen (09/10/18 12:53) Salicylate (09/10/18 12:53) Alcohol (09/10/18 12:53) Ekg Tracing (09/10/18 12:53) Iv Heplock-Insert (Order) (09/10/18 12:53) Medications Given in ED Current Medications Medications Dose Ordered Sig/Cl Route Start Time Stop Time Status Last Admin Dose Admin Olanzapine 10 mg ONCE ONCE PO 09/10/18 12:45 09/10/18 12:46 DC 09/10/18 12:59 10 MG Vital Signs/I&O 09/10/18 12:30 Temp 97.7 Pulse 121 Resp 25 B/P (MAP) 134/86 (102) Pulse Ox 97 O2 Delivery Room Air FSBG Bedside Testing Finger Stick Blood Glucose: 166 Departure Communication (Admissions) 1372-he remains cooperative at this time. [facility] does not have any beds at this very moment but they anticipate a bed later today. They would like to take his information so I did fax that to them. [phone] Dr. Whitten from [facility] in [place] has accepted the patient in transfer. Impression Primary Impression: Suicidal ideation Additional Impression: Acute depression Disposition: 65 XFER TO PSYCH HOSP/UNIT Condition: Stable Departure-Patient Inst. Referrals: NO,LOCAL PHYSICIAN (PCP/Family) Primary Care Physician NICKIE COSTA APRN Sep 10, 2018 13:00
--- NOTE | 2018-09-10 13:02 | NUR ---
Pt sleeping on mattress. Will continue to monitor.
[2018-09-10 13:36] LABS: BASOPHILS % (AUTO) 0 % (0-10); EOSINOPHILS # (AUTO) 0.1 10^3/uL (0.0-0.3); EOSINOPHILS % (AUTO) 1 % (0-10); HEMATOCRIT 40 % (40-54); HEMOGLOBIN 13.5 G/DL (13.3-17.7); LYMPHOCYTES # (AUTO) 2.1 X 10^3 (1.0-4.0); LYMPHOCYTES % (AUTO) 20 % (12-44); MEAN CORPUSCULAR HEMOGLOBIN 31 PG (25-34); MEAN CORPUSCULAR HGB CONC 34 G/DL (32-36); MEAN CORPUSCULAR VOLUME 92 FL (80-99); MEAN PLATELET VOLUME 8.7 FL (7.4-10.4); MONOCYTES # (AUTO) 0.9 X 10^3 (0.0-1.0); MONOCYTES % (AUTO) 8 % (0-12); NEUTROPHILS # (AUTO) 7.7 X 10^3 (1.8-7.8); NEUTROPHILS % (AUTO) 71 % (42-75); PLATELET COUNT 529 10^3/uL (130-400); RED CELL DISTRIBUTION WIDTH 15.4 % (10.0-14.5); WHITE BLOOD COUNT 10.8 10^3/uL (4.3-11.0)
[2018-09-10 13:52] LABS: BILIRUBIN,URINE NEGATIVE (NEGATIVE); CLARITY,URINE CLEAR; COLOR,URINE YELLOW; GLUCOSE, URINE (UA) 4+ (NEGATIVE); KETONES,URINE 3+ (NEGATIVE); LEUKOCYTE ESTERASE ,URINE 1+ (NEGATIVE); NITRITE,URINE NEGATIVE (NEGATIVE); PH,URINE 5 (5-9); PROTEIN,URINE 2+ (NEGATIVE); UROBILINOGEN,URINE NORMAL (NORMAL)
[2018-09-10 13:55] LABS: ALANINE AMINOTRANSFERASE 11 U/L (0-55); ALBUMIN 3.9 GM/DL (3.2-4.5); ALKALINE PHOSPHATASE 100 U/L (40-136); BILIRUBIN,TOTAL 0.2 MG/DL (0.1-1.0); BUN/CREATININE RATIO 14; CALCIUM 9.6 MG/DL (8.5-10.1); CARBON DIOXIDE 24 MMOL/L (21-32); CHLORIDE 101 MMOL/L (98-107); CREATININE SERUM 0.84 MG/DL (0.60-1.30); GFR ESTIMATED > 60; GLUCOSE 168 MG/DL (70-105); POTASSIUM 3.8 MMOL/L (3.6-5.0); SALICYLATE < 5.0 MG/DL (5.0-20.0); SODIUM 139 MMOL/L (135-145); TOTAL PROTEIN 6.9 GM/DL (6.4-8.2)
[2018-09-10 13:58] LABS: ACETAMINOPHEN < 10 UG/ML (10-30)
[2018-09-10 14:09] LABS: BACTERIA,URINE NEGATIVE /HPF; SQUAMOUS EPITHELIAL CELL,UR RARE /HPF
[2018-09-10 14:15] LABS: AMPHETAMINE SCREEN, URINE NEGATIVE (NEGATIVE); BARBITURATE SCREEN URINE NEGATIVE (NEGATIVE); BENZODIAZEPINES SCREEN URINE NEGATIVE (NEGATIVE); CANNABINOID SCREEN, URINE POSITIVE (NEGATIVE); COCAINE SCREEN URINE NEGATIVE (NEGATIVE); METHADONE STAT NEGATIVE (NEGATIVE); METHAMPHETAMINE SCREEN URINE S NEGATIVE (NEGATIVE); OPIATE SCREEN URINE NEGATIVE (NEGATIVE); OXYCODONE STAT NEGATIVE (NEGATIVE); PROPOXYPHENE STAT NEGATIVE (NEGATIVE); TRICYCLIC ANTIDEPRESSANTS SCRE NEGATIVE (NEGATIVE)
--- NOTE | 2018-09-10 14:30 | NUR ---
Pt sleeping at this time. Will continue to monitor.
--- NOTE | 2018-09-10 16:13 | NUR ---
This nurse spoke with Alesha in [place]. Alesha to call back regarding transfer status.
--- NOTE | 2018-09-10 17:18 | NUR ---
food tray ordered for pt at this time.
[2018-09-10] MEDS ORDERED: ALPRAZolam 0.5 MG (XANAX) TAB PO SCH (17:30)
[2018-09-10 18:05] VITALS: BP 128/86
--- NOTE | 2018-09-10 18:07 | NUR ---
Nurse at [facility] called that pt is departing at this time.
--- NOTE | 2018-09-11 11:56 | NUR ---
PT'S BELONGINGS TAKEN TO 4TH FLOOR AND GIVEN TO NURSE TO GIVE TO PT'S BY NUSING STUDENT.
== END 2018-09-10 18:07 ==
LOC: EDUNIT# 11:39 → ER 11:39
DX: R45.851 Suicidal ideations (principal); F32.9 Major depressive disorder, single episode, unspecified; E10.9 Type 1 diabetes mellitus without complications; I10 Essential (primary) hypertension; E11.9 Type 2 diabetes mellitus without complications; F25.9 Schizoaffective disorder, unspecified; F43.10 Post-traumatic stress disorder, unspecified; F41.9 Anxiety disorder, unspecified; Z98.890 Other specified postprocedural states; Z90.49 Acquired absence of other specified parts of digestive tract
CPT/HCPCS: 36415; 80053; 80306; 80320; 80329; 81000; 82962; 85025; 93005

== ENCOUNTER 2019-01-30 22:41 | Observation (INO) | payer MEDICAID ==
[~2019-01-30] VITALS: Ht 188 cm; Wt 106.6 kg
[2019-01-30] MEDS ORDERED: NS IV 1000 ML 1,000 ML IV SCH (22:51)
[2019-01-30] MEDS ORDERED: NS IV 1000 ML 1,000 ML IV ONE (22:51)
[2019-01-30 22:59] LABS: BASOPHILS % (AUTO) 0 % (0-10); EOSINOPHILS % (AUTO) 0 % (0-10); HEMATOCRIT 40 % (40-54); LYMPHOCYTES # (AUTO) 3.3 X 10^3 (1.0-4.0); LYMPHOCYTES % (AUTO) 23 % (12-44); MEAN CORPUSCULAR HEMOGLOBIN 30 PG (25-34); MEAN CORPUSCULAR HGB CONC 32 G/DL (32-36); MEAN CORPUSCULAR VOLUME 93 FL (80-99); MEAN PLATELET VOLUME 9.4 FL (7.4-10.4); MONOCYTES # (AUTO) 1.1 X 10^3 (0.0-1.0); MONOCYTES % (AUTO) 8 % (0-12); NEUTROPHILS # (AUTO) 9.8 X 10^3 (1.8-7.8); NEUTROPHILS % (AUTO) 69 % (42-75); PLATELET COUNT 507 10^3/uL (130-400); RED CELL DISTRIBUTION WIDTH 14.3 % (10.0-14.5); WHITE BLOOD COUNT 14.2 10^3/uL (4.3-11.0)
--- NOTE | 2019-01-30 22:59 | ED Abdominal Pain ---
General Chief Complaint: Glucose Problems Stated Complaint: HIGH BLOOD SUGAR Source of Information: Patient Exam Limitations: No Limitations History of Present Illness Date Seen by Provider: Jan 30, 2019 Time Seen by Provider: 22:32 Initial Comments The patient presents to the ER by EMS from the [facility] with chief complaint of abdominal pain nausea vomiting past 2-3 days presently worsening. He has a history of diabetes with DKA in the past. Feels very nauseated and urinating frequently without dysuria. He has pain in his back it's constant. He has not been using his insulin for the past 3 days because of an issue with his roommate somehow still has his insulin. A liter of saline was started on route. He's had a cough that is nonproductive. He does smoke. He rates his pain as 10 out of 10. Last time he checked his blood sugar was over 500. EMS reports it read high for their glucometer. Allergies and Home Medications Allergies Coded Allergies: No Known Drug Allergies (Unverified , 06/19/18) Patient Home Medication List Home Medication List Reviewed: Yes Review of Systems Review of Systems Constitutional: No chills, No fever EENTM: No Blurred Vision, No Double Vision Respiratory: Cough; Denies Shortness of Air Cardiovascular: Denies Chest Pain, Denies Edema Gastrointestinal: See HPI; Denies Abdomen Distended; Abdominal Pain; Denies Constipated, Denies Diarrhea; Nausea, Poor Fluid Intake, Vomiting Genitourinary: Denies Burning, Denies Discharge; Frequency Musculoskeletal: see HPI, back pain; No joint pain Skin: No pruritus, No rash Psychiatric/Neurological: Headache; Denies Numbness, Denies Paresthesia Past Usjkrie-Zwlbpp-Linefp Hx Patient Social History Alcohol Use: Denies Use Recreational Drug Use: Yes Drug of Choice: Marijuana Smoking Status: Current Everyday Smoker Type Used: Cigarettes Recent Foreign Travel: No Contact w/Someone Who Travel: No Recent Hopitalizations: No Past Medical History Surgeries: Yes (SPLEEN, back, r hand, legs) Appendectomy, Orthopedic Respiratory: No Cardiac: Yes Hypertension Neurological: No Genitourinary: No Gastrointestinal: No Musculoskeletal: No Endocrine: Yes Diabetes, Insulin dep HEENT: No Cancer: No Psychosocial: Yes (SCHIZOAFFECTIVE; SUICIDAL IDEATIONS) Anxiety, PTSD, Depression Physical Exam Vital Signs Vital Signs - First Documented 01/30/19 22:41 Temp 98.2 Pulse 118 Resp 20 B/P (MAP) 142/66 (91) Pulse Ox 99 O2 Delivery Room Air Capillary Refill : Height/Weight/BMI Height: 6'2.00" Weight: 234lbs. oz. 106.418510xq; BMI Method:Stated General Appearance: WD/WN, no apparent distress HEENT: PERRL/EOMI, normal ENT inspection, TMs normal, pharynx normal Neck: non-tender, full range of motion, normal inspection Respiratory: chest non-tender, lungs clear, normal breath sounds, no respiratory distress, no accessory muscle use Cardiovascular: normal peripheral pulses, regular rate, rhythm Peripheral Pulses: 2+ Radial Pulses (R), 2+ Radial Pulses (L) Gastrointestinal: normal bowel sounds, guarding, tenderness (all 4 quadrants) Extremities: normal inspection, no pedal edema, normal capillary refill Back: normal inspection Neurologic/Psychiatric: no motor/sensory deficits, alert, normal mood/affect, oriented x 3 Skin: normal color, warm/dry Progress/Results/Core Measures Results/Orders Lab Results Laboratory Tests Test 01/30/19 22:50 01/30/19 22:57 Range/Units White Blood Count 14.2 H 4.3-11.0 10^3/uL Red Blood Count 4.35 4.35-5.85 10^6/uL Hemoglobin 13.0 L 13.3-17.7 G/DL Hematocrit 40 40-54 % Mean Corpuscular Volume 93 80-99 FL Mean Corpuscular Hemoglobin 30 25-34 PG Mean Corpuscular Hemoglobin Concent 32 32-36 G/DL Red Cell Distribution Width 14.3 10.0-14.5 % Platelet Count 507 H 130-400 10^3/uL Mean Platelet Volume 9.4 7.4-10.4 FL Neutrophils (%) (Auto) 69 42-75 % Lymphocytes (%) (Auto) 23 12-44 % Monocytes (%) (Auto) 8 0-12 % Eosinophils (%) (Auto) 0 0-10 % Basophils (%) (Auto) 0 0-10 % Neutrophils # (Auto) 9.8 H 1.8-7.8 X 10^3 Lymphocytes # (Auto) 3.3 1.0-4.0 X 10^3 Monocytes # (Auto) 1.1 H 0.0-1.0 X 10^3 Eosinophils # (Auto) 0.0 0.0-0.3 10^3/uL Basophils # (Auto) 0.0 0.0-0.1 10^3/uL Sodium Level 129 L 135-145 MMOL/L Potassium Level 5.7 H 3.6-5.0 MMOL/L Chloride Level 92 L 98-107 MMOL/L Carbon Dioxide Level 6 *L 21-32 MMOL/L Anion Gap 31 H 5-14 MMOL/L Blood Urea Nitrogen 17 7-18 MG/DL Creatinine 1.56 H 0.60-1.30 MG/DL Estimat Glomerular Filtration Rate 52 BUN/Creatinine Ratio 11 Glucose Level 781 *H 70-105 MG/DL Calcium Level 9.3 8.5-10.1 MG/DL Corrected Calcium 9.4 8.5-10.1 MG/DL Magnesium Level 2.0 1.8-2.4 MG/DL Total Bilirubin 0.3 0.1-1.0 MG/DL Aspartate Amino Transf (AST/SGOT) 13 5-34 U/L Alanine Aminotransferase (ALT/SGPT) 16 0-55 U/L Alkaline Phosphatase 102 40-136 U/L Total Protein 6.9 6.4-8.2 GM/DL Albumin 3.9 3.2-4.5 GM/DL Lipase 9 8-78 U/L Serum Alcohol < 10 <10 MG/DL Urine Color YELLOW Urine Clarity CLEAR Urine pH 5 5-9 Urine Specific [place] 1.025 H 1.016-1.022 Urine Protein 1+ H NEGATIVE Urine Glucose (UA) 4+ H NEGATIVE Urine Ketones 4+ H NEGATIVE Urine Nitrite POSITIVE H NEGATIVE Urine Bilirubin NEGATIVE NEGATIVE Urine Urobilinogen NORMAL NORMAL MG/DL Urine Leukocyte Esterase NEGATIVE NEGATIVE Urine RBC (Auto) NEGATIVE NEGATIVE Urine RBC NONE /HPF Urine WBC RARE /HPF Urine Squamous Epithelial Cells RARE /HPF Urine Crystals NONE /LPF Urine Bacteria TRACE /HPF Urine Casts NONE /LPF Urine Mucus NEGATIVE /LPF Urine Culture Indicated NO Urine Opiates Screen NEGATIVE NEGATIVE Urine Oxycodone Screen NEGATIVE NEGATIVE Urine Methadone Screen NEGATIVE NEGATIVE Urine Propoxyphene Screen NEGATIVE NEGATIVE Urine Barbiturates Screen NEGATIVE NEGATIVE Ur Tricyclic Antidepressants Screen NEGATIVE NEGATIVE Urine Phencyclidine Screen NEGATIVE NEGATIVE Urine Amphetamines Screen NEGATIVE NEGATIVE Urine Methamphetamines Screen POSITIVE H NEGATIVE Urine Benzodiazepines Screen NEGATIVE NEGATIVE Urine Cocaine Screen NEGATIVE NEGATIVE Urine Cannabinoids Screen NEGATIVE NEGATIVE My Orders Orders - SOFIA,FANNIE J Alcohol (01/30/19 22:51) Cbc With Automated Diff (01/30/19 22:51) Comprehensive Metabolic Panel (01/30/19 22:51) Drug Screen Stat (Urine) (01/30/19 22:51) Magnesium (01/30/19 22:51) Ua Culture If Indicated (01/30/19 22:51) Ed Iv/Invasive Line Start (01/30/19 22:51) Ns Iv 1000 Ml (Sodium Chloride 0.9%) (01/30/19 22:51) Ns Iv 1000 Ml (Sodium Chloride 0.9%) (01/30/19 22:51) Lipase (01/30/19 22:51) Ondansetron Injection (Zofran Injectio (01/30/19 23:15) Fentanyl Injection (Sublimaze Injection (01/30/19 23:15) Insulin (Regular) Human (Humulin R (Per (01/31/19 00:15) Normal Saline (Ns ([place])) (01/30/19 23:58) Medications Given in ED Current Medications Medications Dose Ordered Sig/Cl Route Start Time Stop Time Status Last Admin Dose Admin Fentanyl Citrate 50 mcg ONCE ONCE IVP 01/30/19 23:15 01/30/19 23:16 DC 01/30/19 23:10 50 MCG Ondansetron HCl 8 mg ONCE ONCE IVP 01/30/19 23:15 01/30/19 23:16 DC 01/30/19 23:18 8 MG Sodium Chloride 1,000 ml @ 0 mls/hr Q0M ONCE IV 01/30/19 22:51 01/30/19 22:54 DC 01/30/19 23:15 1,000 MLS/HR Vital Signs/I&O 01/30/19 22:41 Temp 98.2 Pulse 118 Resp 20 B/P (MAP) 142/66 (91) Pulse Ox 99 O2 Delivery Room Air 01/31/19 00:00 Intake Total 500 ml Balance 500 ml Progress Progress Note #1: Time: 22:58 Progress Note Suspect DKA. We'll start with labs, 30 mL/kg bolus of fluids. Patient is mildly demanding something to eat and drink while the same time telling us is going to throw up. We have multiple times instructed him that we would not be giving him anything by mouth while he is nauseated and he has limited to us that he came to the hospital. He is okay with us giving IV fluids and obtaining a workup. Progress Note #2: Time: 00:12 Progress Note Potassium was over 5.5. 10 units of regular insulin IV. 50 g of fentanyl for p ain. We will initiate the insulin drip and fluids in the ICU. Departure Communication (Admissions) Time/Spoke to Admitting Phy: 00:10 Discussed the case with Dr. Peña who agrees to admit the patient to the ICU on insulin. Impression Primary Impression: Diabetic ketoacidosis Qualified Codes: E10.10 - Type 1 diabetes mellitus with ketoacidosis without coma Additional Impressions: Methamphetamine abuse Acute kidney injury Disposition: ADMITTED INPATIENT Condition: Critical Admissions Decision to Admit Reason: Admit from ER (General) Decision to Admit/Date: Jan 31, 2019 Time/Decision to Admit Time: 00:00 Departure-Patient Inst. Referrals: NO,LOCAL PHYSICIAN (PCP/Family) Primary Care Physician FANNIE BLACK Jan 30, 2019 22:59
[2019-01-30 23:02] LABS: BILIRUBIN,URINE NEGATIVE (NEGATIVE); CLARITY,URINE CLEAR; COLOR,URINE YELLOW; GLUCOSE, URINE (UA) 4+ (NEGATIVE); KETONES,URINE 4+ (NEGATIVE); LEUKOCYTE ESTERASE ,URINE NEGATIVE (NEGATIVE); NITRITE,URINE POSITIVE (NEGATIVE); PH,URINE 5 (5-9); PROTEIN,URINE 1+ (NEGATIVE); UROBILINOGEN,URINE NORMAL (NORMAL)
[2019-01-30 23:09] LABS: BACTERIA,URINE TRACE /HPF; SQUAMOUS EPITHELIAL CELL,UR RARE /HPF; WBC,URINE RARE /HPF
[2019-01-30 23:13] LABS: AMPHETAMINE SCREEN, URINE NEGATIVE (NEGATIVE); BARBITURATE SCREEN URINE NEGATIVE (NEGATIVE); BENZODIAZEPINES SCREEN URINE NEGATIVE (NEGATIVE); CANNABINOID SCREEN, URINE NEGATIVE (NEGATIVE); COCAINE SCREEN URINE NEGATIVE (NEGATIVE); METHADONE STAT NEGATIVE (NEGATIVE); METHAMPHETAMINE SCREEN URINE S POSITIVE (NEGATIVE); OPIATE SCREEN URINE NEGATIVE (NEGATIVE); OXYCODONE STAT NEGATIVE (NEGATIVE); TRICYCLIC ANTIDEPRESSANTS SCRE NEGATIVE (NEGATIVE)
[2019-01-30 23:14] LABS: PROPOXYPHENE STAT NEGATIVE (NEGATIVE)
[2019-01-30] MEDS ORDERED: fentaNYL INJECTION 100 MCG/2 ML AMP IVP ONE (23:15)
[2019-01-30] MEDS ORDERED: ONDANSETRON 4 MG/2 ML (SDV) Z0FRAN IVP ONE (23:15)
[2019-01-30 23:17] LABS: ALANINE AMINOTRANSFERASE 16 U/L (0-55); ALBUMIN 3.9 GM/DL (3.2-4.5); ALKALINE PHOSPHATASE 102 U/L (40-136); BILIRUBIN,TOTAL 0.3 MG/DL (0.1-1.0); BUN/CREATININE RATIO 11; CALCIUM 9.3 MG/DL (8.5-10.1); CHLORIDE 92 MMOL/L (98-107); CREATININE SERUM 1.56 MG/DL (0.60-1.30); GFR ESTIMATED 52; LIPASE 9 U/L (8-78); POTASSIUM 5.7 MMOL/L (3.6-5.0); SODIUM 129 MMOL/L (135-145); TOTAL PROTEIN 6.9 GM/DL (6.4-8.2)
[2019-01-30 23:18] LABS: CARBON DIOXIDE 6 MMOL/L (21-32); GLUCOSE 781 MG/DL (70-105)
[2019-01-30] MEDS ORDERED: NORMAL SALINE 250 ML ONE (23:58)
[2019-01-30] MEDS ORDERED: inSUlin (REGULAR) HUMAN 1 UNIT/0.01 ML (CHARGE PER UNIT) ONE (23:59)
[2019-01-31] VITALS (23 sets, daily range): BP systolic 95–142; BP diastolic 43–81
[2019-01-31] MEDS ORDERED: inSUlin (REGULAR) HUMAN 1 UNIT/0.01 ML (CHARGE PER UNIT) ONE
[2019-01-31] MEDS ORDERED: POTASSIUM CL 10MEQ/50ML IVPB 100 ML IV ONE (00:04)
[2019-01-31] MEDS ORDERED: fentaNYL INJECTION 100 MCG/2 ML AMP IVP ONE (00:15)
[2019-01-31] MEDS ORDERED: inSUlin (REGULAR) HUMAN 1 UNIT/0.01 ML (CHARGE PER UNIT) IV ONE (00:15)
[2019-01-31] MEDS ORDERED: 1/2 NS IV SOLUTION 1,000 ML IV ONE (00:53)
[2019-01-31] MEDS: 1/2 NS IV SOLUTION 1,000 ML IV SCH ×5 (01:00→18:51)
[2019-01-31 01:36] LABS: BUN/CREATININE RATIO 12; CALCIUM 8.8 MG/DL (8.5-10.1); CHLORIDE 100 MMOL/L (98-107); CREATININE SERUM 1.42 MG/DL (0.60-1.30); GFR ESTIMATED 58; POTASSIUM 5.1 MMOL/L (3.6-5.0); SODIUM 135 MMOL/L (135-145)
[2019-01-31 01:37] LABS: CARBON DIOXIDE < 5 MMOL/L (21-32)
[2019-01-31 01:38] LABS: GLUCOSE 557 MG/DL (70-105)
[2019-01-31] MEDS ORDERED: NS IV 1000 ML 1,000 ML IV SCH (02:47)
[2019-01-31] MEDS ORDERED: ONDANSETRON 4 MG/2 ML (SDV) Z0FRAN IV PRN (03:00)
[2019-01-31] MEDS ORDERED: fentaNYL INJECTION 100 MCG/2 ML AMP IV PRN (03:00)
[2019-01-31] MEDS ORDERED: inSUlin REGULAR TPN/DRIP ONLY 250 UNITS in NORMAL SALINE 250 ML IV SCH (03:00)
[2019-01-31] MEDS ORDERED: HYDROcodone/APAP 5 MG/325 MG (LORTAB) TAB PO PRN (03:00)
--- NOTE | 2019-01-31 03:05 | NUR ---
Notified EICU of pt's tachycardia ranging from HR of 120's-140's. No new orders at this time.
[2019-01-31] MEDS ORDERED: LORazepam INJ 2 MG/ML (ATIVAN) VIAL IV PRN ×2 (03:15→07:00)
--- NOTE | 2019-01-31 03:48 | NUR ---
Notified EICU that when pt stood up to use urinal HR into 150's and pt then c/o chest pain. No new orders at this time.
[2019-01-31 03:49] LABS: BASOPHILS % (AUTO) 0 % (0-10); EOSINOPHILS % (AUTO) 0 % (0-10); HEMATOCRIT 40 % (40-54); HEMOGLOBIN 12.9 G/DL (13.3-17.7); LYMPHOCYTES # (AUTO) 3.1 X 10^3 (1.0-4.0); LYMPHOCYTES % (AUTO) 16 % (12-44); MEAN CORPUSCULAR HEMOGLOBIN 30 PG (25-34); MEAN CORPUSCULAR HGB CONC 33 G/DL (32-36); MEAN CORPUSCULAR VOLUME 92 FL (80-99); MEAN PLATELET VOLUME 9.1 FL (7.4-10.4); MONOCYTES # (AUTO) 1.7 X 10^3 (0.0-1.0); MONOCYTES % (AUTO) 9 % (0-12); NEUTROPHILS # (AUTO) 14.1 X 10^3 (1.8-7.8); NEUTROPHILS % (AUTO) 75 % (42-75); PLATELET COUNT 492 10^3/uL (130-400); RED CELL DISTRIBUTION WIDTH 14.3 % (10.0-14.5); WHITE BLOOD COUNT 18.8 10^3/uL (4.3-11.0)
[2019-01-31 04:11] LABS: BAND NEUTROPHILS 3 %; LYMPHOCYTES % (MANUAL) 22 %; MONOCYTES % (MANUAL) 8 %; NEUTROPHILS % (MANUAL) 67 %; RBC MORPH NORMAL
[2019-01-31 04:16] LABS: BUN/CREATININE RATIO 11; CALCIUM 8.8 MG/DL (8.5-10.1); CHLORIDE 104 MMOL/L (98-107); CREATININE SERUM 1.25 MG/DL (0.60-1.30); GFR ESTIMATED > 60; GLUCOSE 251 MG/DL (70-105); MAGNESIUM 2.1 MG/DL (1.8-2.4); PHOSPHORUS 3.1 MG/DL (2.3-4.7); POTASSIUM 4.9 MMOL/L (3.6-5.0); SODIUM 135 MMOL/L (135-145)
[2019-01-31 04:17] LABS: CARBON DIOXIDE 10 MMOL/L (21-32)
[2019-01-31] MEDS: POTASSIUM CL 10MEQ/50ML IVPB 50 ML IV SCH ×7 (04:17→07:21)
[2019-01-31] MEDS: D5 1/2 NS 1000 ML IV SOLUTION 1,000 ML IV SCH ×3 (04:26→17:01)
[2019-01-31] MEDS ORDERED: KCL 20 MEQ TAB (K-DUR) PO SCH (06:00)
[2019-01-31] MEDS ORDERED: MAGNESIUM 1 GM/100 ML IVPB 100 ML IV SCH (06:00)
[2019-01-31] MEDS ORDERED: POTASSIUM CL 10MEQ/50ML IVPB 50 ML IV SCH (06:00)
[2019-01-31 08:29] LABS: BUN/CREATININE RATIO 10; CALCIUM 8.3 MG/DL (8.5-10.1); CARBON DIOXIDE 17 MMOL/L (21-32); CHLORIDE 107 MMOL/L (98-107); CREATININE SERUM 1.06 MG/DL (0.60-1.30); GFR ESTIMATED > 60; GLUCOSE 140 MG/DL (70-105); POTASSIUM 4.4 MMOL/L (3.6-5.0); SODIUM 135 MMOL/L (135-145)
--- NOTE | 2019-01-31 10:48 | Diagnostic Imaging Report ---
INDICATION: Dyspnea FINDINGS: Upright chest shows normal heart size and vascularity. The lungs are clear. There is no effusion or pneumothorax. There is no bony abnormality. IMPRESSION: Normal chest. Dictated by: Dictated on workstation # [id number]
--- NOTE | 2019-01-31 17:07 | History & Physical ---
HPI History of Present Illness: 33 yo M with known insulin dependent DM that presented with abdominal pain found to be in DKA. Patient states that he has not taking his insulin for the last 3 days because he has not felt well and he has not had a place to stay. Patient states that he smoke MJ last night but denies any other drug use. UDS + Meth. Has not been in the hospital with DKA for over a year. Source: patient Date seen by provider: Jan 31, 2019 Time Seen by Provider: 07:45 Attending Physician Valery Peña MD PCP No,Local Physician Consult Date of Admission Jan 31, 2019 at 00:15 Home Medications Home Medications Reviewed patient Home Medication Reconciliation performed by pharmacy medication reconciliations technician test systems and/or nursing. Patients Allergies have been reviewed. Allergies Coded Allergies: No Known Drug Allergies (Unverified , 06/19/18) [id number]-[id number] Hx Patient Social History Living Status: Homeless Alcohol Use: Denies Use Recreational Drug Use: Yes Drug of Choice: Marijuana Smoking Status: Current Everyday Smoker Type Used: Cigarettes Recent Foreign Travel: No Contact w/other who traveled: No Recent Hopitalizations: No Recent Infectious Disease Expo: No Past Medical History IDDM Asplenia Family Medical History Significant Family History: No Pertinent Family Hx Review of Systems ([facility]) Constitutional: chills; No fever; malaise EENTM: no symptoms reported; No nose congestion, No nose pain, No throat pain Respiratory: no symptoms reported; No cough, No dyspnea on exertion, No short of breath Cardiovascular: no symptoms reported; No chest pain, No edema, No palpitations Gastrointestinal: abdominal pain, loss of appetite, nausea; No vomiting Genitourinary: no symptoms reported; No dysuria, No frequency, No hematuria Musculoskeletal: no symptoms reported; No back pain, No joint pain, No muscle pain Skin: no symptoms reported; No lesions, No rash Psychiatric/Neurological: Headache Reviewed Test Results Reviewed Test Results Lab Laboratory Tests Test 01/30/19 22:50 01/30/19 22:57 01/31/19 00:40 01/31/19 01:15 Range/Units White Blood Count 14.2 H 4.3-11.0 10^3/uL Red Blood Count 4.35 4.35-5.85 10^6/uL Hemoglobin 13.0 L 13.3-17.7 G/DL Hematocrit 40 40-54 % Mean Corpuscular Volume 93 80-99 FL Mean Corpuscular Hemoglobin 30 25-34 PG Mean Corpuscular Hemoglobin Concent 32 32-36 G/DL Red Cell Distribution Width 14.3 10.0-14.5 % Platelet Count 507 H 130-400 10^3/uL Mean Platelet Volume 9.4 7.4-10.4 FL Neutrophils (%) (Auto) 69 42-75 % Lymphocytes (%) (Auto) 23 12-44 % Monocytes (%) (Auto) 8 0-12 % Eosinophils (%) (Auto) 0 0-10 % Basophils (%) (Auto) 0 0-10 % Neutrophils # (Auto) 9.8 H 1.8-7.8 X 10^3 Lymphocytes # (Auto) 3.3 1.0-4.0 X 10^3 Monocytes # (Auto) 1.1 H 0.0-1.0 X 10^3 Eosinophils # (Auto) 0.0 0.0-0.3 10^3/uL Basophils # (Auto) 0.0 0.0-0.1 10^3/uL Sodium Level 129 L 135 135-145 MMOL/L Potassium Level 5.7 H 5.1 H 3.6-5.0 MMOL/L Chloride Level 92 L 100 98-107 MMOL/L Carbon Dioxide Level 6 *L < 5 *L 21-32 MMOL/L Anion Gap 31 H 30 H 5-14 MMOL/L Blood Urea Nitrogen 17 17 7-18 MG/DL Creatinine 1.56 H 1.42 H 0.60-1.30 MG/DL Estimat Glomerular Filtration Rate 52 58 BUN/Creatinine Ratio 11 12 Glucose Level 781 *H 557 *H 70-105 MG/DL Calcium Level 9.3 8.8 8.5-10.1 MG/DL Corrected Calcium 9.4 8.5-10.1 MG/DL Magnesium Level 2.0 1.8-2.4 MG/DL Total Bilirubin 0.3 0.1-1.0 MG/DL Aspartate Amino Transf (AST/SGOT) 13 5-34 U/L Alanine Aminotransferase (ALT/SGPT) 16 0-55 U/L Alkaline Phosphatase 102 40-136 U/L Total Protein 6.9 6.4-8.2 GM/DL Albumin 3.9 3.2-4.5 GM/DL Lipase 9 8-78 U/L Serum Alcohol < 10 <10 MG/DL Urine Color YELLOW Urine Clarity CLEAR Urine pH 5 5-9 Urine Specific [place] 1.025 H 1.016-1.022 Urine Protein 1+ H NEGATIVE Urine Glucose (UA) 4+ H NEGATIVE Urine Ketones 4+ H NEGATIVE Urine Nitrite POSITIVE H NEGATIVE Urine Bilirubin NEGATIVE NEGATIVE Urine Urobilinogen NORMAL NORMAL MG/DL Urine Leukocyte Esterase NEGATIVE NEGATIVE Urine RBC (Auto) NEGATIVE NEGATIVE Urine RBC NONE /HPF Urine WBC RARE /HPF Urine Squamous Epithelial Cells RARE /HPF Urine Crystals NONE /LPF Urine Bacteria TRACE /HPF Urine Casts NONE /LPF Urine Mucus NEGATIVE /LPF Urine Culture Indicated NO Urine Opiates Screen NEGATIVE NEGATIVE Urine Oxycodone Screen NEGATIVE NEGATIVE Urine Methadone Screen NEGATIVE NEGATIVE Urine Propoxyphene Screen NEGATIVE NEGATIVE Urine Barbiturates Screen NEGATIVE NEGATIVE Ur Tricyclic Antidepressants Screen NEGATIVE NEGATIVE Urine Phencyclidine Screen NEGATIVE NEGATIVE Urine Amphetamines Screen NEGATIVE NEGATIVE Urine Methamphetamines Screen POSITIVE H NEGATIVE Urine Benzodiazepines Screen NEGATIVE NEGATIVE Urine Cocaine Screen NEGATIVE NEGATIVE Urine Cannabinoids Screen NEGATIVE NEGATIVE Glucometer 529 *H 70-110 MG/DL Test 01/31/19 02:42 01/31/19 03:34 01/31/19 03:53 01/31/19 05:05 Range/Units Glucometer 278 H 217 H 163 H 70-110 MG/DL White Blood Count 18.8 H 4.3-11.0 10^3/uL Red Blood Count 4.33 L 4.35-5.85 10^6/uL Hemoglobin 12.9 L 13.3-17.7 G/DL Hematocrit 40 40-54 % Mean Corpuscular Volume 92 80-99 FL Mean Corpuscular Hemoglobin 30 25-34 PG Mean Corpuscular Hemoglobin Concent 33 32-36 G/DL Red Cell Distribution Width 14.3 10.0-14.5 % Platelet Count 492 H 130-400 10^3/uL Mean Platelet Volume 9.1 7.4-10.4 FL Neutrophils (%) (Auto) 75 42-75 % Lymphocytes (%) (Auto) 16 12-44 % Monocytes (%) (Auto) 9 0-12 % Eosinophils (%) (Auto) 0 0-10 % Basophils (%) (Auto) 0 0-10 % Neutrophils # (Auto) 14.1 H 1.8-7.8 X 10^3 Lymphocytes # (Auto) 3.1 1.0-4.0 X 10^3 Monocytes # (Auto) 1.7 H 0.0-1.0 X 10^3 Eosinophils # (Auto) 0.0 0.0-0.3 10^3/uL Basophils # (Auto) 0.0 0.0-0.1 10^3/uL Neutrophils % (Manual) 67 % Lymphocytes % (Manual) 22 % Monocytes % (Manual) 8 % Band Neutrophils 3 % Blood Morphology Comment NORMAL Sodium Level 135 135-145 MMOL/L Potassium Level 4.9 3.6-5.0 MMOL/L Chloride Level 104 98-107 MMOL/L Carbon Dioxide Level 10 L 21-32 MMOL/L Anion Gap 21 H 5-14 MMOL/L Blood Urea Nitrogen 14 7-18 MG/DL Creatinine 1.25 0.60-1.30 MG/DL Estimat Glomerular Filtration Rate > 60 BUN/Creatinine Ratio 11 Glucose Level 251 H 70-105 MG/DL Calcium Level 8.8 8.5-10.1 MG/DL Phosphorus Level 3.1 2.3-4.7 MG/DL Magnesium Level 2.1 1.8-2.4 MG/DL Beta-Hydroxybutyrate (Chem panel) 6.20 H 0.00-0.27 MMOL/L Test 01/31/19 06:00 01/31/19 07:17 01/31/19 07:55 01/31/19 07:57 Range/Units Glucometer 155 H 143 H 139 H 70-110 MG/DL Sodium Level 135 135-145 MMOL/L Potassium Level 4.4 3.6-5.0 MMOL/L Chloride Level 107 98-107 MMOL/L Carbon Dioxide Level 17 L 21-32 MMOL/L Anion Gap 11 5-14 MMOL/L Blood Urea Nitrogen 11 7-18 MG/DL Creatinine 1.06 0.60-1.30 MG/DL Estimat Glomerular Filtration Rate > 60 BUN/Creatinine Ratio 10 Glucose Level 140 H 70-105 MG/DL Calcium Level 8.3 L 8.5-10.1 MG/DL Test 01/31/19 08:59 01/31/19 10:03 01/31/19 11:06 01/31/19 11:58 Range/Units Glucometer 126 H 123 H 129 H 148 H 70-110 MG/DL Test 01/31/19 13:01 01/31/19 14:15 01/31/19 15:09 01/31/19 16:06 Range/Units Glucometer 181 H 165 H 171 H 207 H 70-110 MG/DL Physical Exam-([facility]) Physical Exam Vital Signs VS - Last 72 Hours, by Label 01/30/19 01/31/19 01/31/19 01/31/19 22:41 00:42 00:49 00:49 Temp 98.2 98.2 98.9 Pulse 118 122 114 Resp 20 20 32 B/P (MAP) 142/66 (91) 135/70 (91) 126/53 (77) Pulse Ox 99 99 99 97 O2 Delivery Room Air Room Air Room Air 01/31/19 01/31/19 01/31/19 01/31/19 01:00 01:00 02:00 03:00 Pulse 108 113 113 111 Resp 20 18 26 B/P (MAP) 115/43 (67) 127/81 (96) 132/76 (94) Pulse Ox 98 97 97 01/31/19 01/31/19 01/31/19 01/31/19 04:00 04:00 04:00 05:00 Temp 98.5 Pulse 101 91 Resp 14 14 B/P (MAP) 140/80 (100) 95/57 (70) Pulse Ox 96 98 96 O2 Delivery Room Air 01/31/19 01/31/19 01/31/19 01/31/19 06:02 07:00 07:00 08:00 Pulse 105 98 92 107 Resp 16 17 15 B/P (MAP) 98/62 (74) 124/74 (91) 116/75 (89) Pulse Ox 97 95 98 O2 Delivery Room Air Room Air 01/31/19 01/31/19 01/31/19 01/31/19 08:00 09:00 10:00 11:00 Pulse 89 85 94 Resp 20 19 13 B/P (MAP) 106/74 (85) 101/70 (80) 103/72 (82) Pulse Ox 98 96 96 98 O2 Delivery Room Air Room Air Room Air Room Air 01/31/19 01/31/19 01/31/19 01/31/19 12:00 12:00 12:00 13:00 Temp 98.1 Pulse 88 90 Resp 13 18 B/P (MAP) 101/77 (85) 142/76 (98) Pulse Ox 97 98 95 O2 Delivery Room Air Room Air Room Air 01/31/19 01/31/19 01/31/19 01/31/19 13:00 14:00 15:00 16:00 Temp 96.1 Pulse 84 85 82 Resp 14 10 B/P (MAP) 109/80 (90) 103/67 (79) Pulse Ox 97 97 O2 Delivery Room Air Room Air 01/31/19 01/31/19 16:00 16:00 Pulse 73 Resp 24 B/P (MAP) 129/67 (87) Pulse Ox 95 98 O2 Delivery Room Air Room Air Capillary Refill : Less Than 3 Seconds General Appearance: WD/WN, no apparent distress HEENT: PERRL/EOMI Neck: non-tender, full range of motion, supple Respiratory: chest non-tender, lungs clear, normal breath sounds, no respiratory distress, no accessory muscle use Cardiovascular: normal peripheral pulses, regular rate, rhythm, no edema, no murmur Gastrointestinal: normal bowel sounds, soft, tenderness (mild diffuse ttp) Back: no CVA tenderness, no vertebral tenderness Extremities: normal range of motion, no pedal edema, no calf tenderness, normal capillary refill Neurologic/Psychiatric: deputy director II-XII nml as tested, no motor/sensory deficits, alert, normal mood/affect, oriented x 3 Skin: normal color, warm/dry Lymphatic: no adenopathy Assessment/Plan Assessment/Plan Admission Status: Inpatient Order (span 2 midnights) Reason for Inpatient Admission: Needs ICU care and insulin gtts (1) Diabetic ketoacidosis Status: Acute Assessment & Plan: - Insulin gtts until gap is closed, then restart subcutaneous insulin, q 4hr BMPs Qualifiers: Qualified Codes: E10.10 - Type 1 diabetes mellitus with ketoacidosis without coma (2) Acute kidney injury Status: Acute Assessment & Plan: - Likely 2/2 to hyperglycemia and dehydration (3) Methamphetamine abuse Status: Acute Assessment & Plan: - Discussed the importance of cessation Clinical Quality Measures DVT/VTE Risk/Contraindication: Risk Factor Score Per Nursin RFS Level Per Nursing on Admit: 2=Moderate VALERY PEÑA MD Jan 31, 2019 17:07
--- NOTE | 2019-02-04 14:03 | Physician Query-Final Dx ---
Final Diagnosis Give Final Diagnosis Please give Final Diagnosis LAZARO GARCIA Feb 04, 2019 14:03
== END 2019-01-31 22:35 | disposition left against medical advice (07) ==
LOC: EDUNIT# 22:41 → ER 22:42 → ICU 22:43 → UNDOADMIN 01-31 00:15 → UNDODISIN 01-31 22:36
PROVIDERS: ADMIT Family Medicine; ATTEND Family Medicine
DX: E10.10 Type 1 diabetes mellitus with ketoacidosis without coma (principal); N17.9 Acute kidney failure, unspecified; E10.65 Type 1 diabetes mellitus with hyperglycemia; E86.0 Dehydration; F15.10 Other stimulant abuse, uncomplicated; Z79.4 Long term (current) use of insulin; Z91.19 Patient's noncompliance with other medical treatment and regimen; F17.210 Nicotine dependence, cigarettes, uncomplicated; F41.9 Anxiety disorder, unspecified; F32.9 Major depressive disorder, single episode, unspecified; F25.9 Schizoaffective disorder, unspecified; Z59.0 Homelessness
CPT/HCPCS: 36415; 71045; 80048; 80053; 80306; 80320; 81000; 82010; 82962; 83690; 83735; 84100; 85007; 85025; 85027; 96361; 96374; 96375; 96376; G0378